=== PATIENT | female | born 1955 | race Caucasian/White ===

== ENCOUNTER 2021-10-01 12:39 | Inpatient (IN) ==
[2021-10-01] MEDS ORDERED: IOPAMIDOL 100 ML BOTTLE IV ONE (12:40)
--- NOTE | 2021-10-01 12:56 | Emergency Department Note ---
Neuro HPI General Chief Complaint: Stroke Symptoms Stated Complaint: Alt. Mental Status Time Seen by Provider: 10/01/21 12:41 Source: EMS Mode of arrival: EMS Limitations: no limitations History of Present Illness HPI Narrative: Narrative: 66-year-old female with a history of metastatic carcinoma, brain cancer, breast cancer, diabetes who receives at home care was last seen well at 5 PM yesterday by her in-home provider. When she arrived today she noticed that the patient was confused and was using inappropriate words when trying to communicate. She called EMS who brought her here for further evaluation. EMS states she had a normal blood sugar of 160 in route. Patient cannot provide any significant his tory, review of systems and is having difficulty participating in neuro exam. Related Data Previous Rx's Medication Instructions Recorded glyburide 1.25 mg tablet 1.25 mg PO TID #90 tab 04/23/20 dexamethasone 4 mg tablet 4 mg PO QDAY #30 tab 05/30/20 (Decadron) Allergies Allergy/AdvReac Type Severity Reaction Status Date / Time baclofen Allergy Unknown Other Verified 10/01/21 12:44 bupropion [From Wellbutrin] Allergy Unknown Blisters Verified 10/01/21 12:44 phenol Allergy Unknown Unknown Verified 10/01/21 12:44 propylene glycol Allergy Unknown Unknown Verified 10/01/21 12:44 exenatide microspheres AdvReac Unknown Unknown Verified 10/01/21 12:44 [From Bydureon] liraglutide [From Victoza] AdvReac Unknown Unknown Verified 10/01/21 12:44 metformin AdvReac Unknown Diarrhea Verified 10/01/21 12:44 Codeine Deriv Allergy Unknown Skin Uncoded 04/30/20 13:25 Reaction Review of Systems ROS ROS Narrative: Narrative: Limitations: ROS unobtainable due to patients medical condition [facility] Narrative Patient History Narrative: Narrative: Medical/Surgical/Family History All Active Problems (Updated 10/01/21 @ 15:49 by Michael Sen MD) Dysarthria (Acute) Stroke (Acute) Left leg weakness (Acute) Malignant neoplasm metastatic to brain (Acute) Hyperlipidemia (Chronic) Hx of right breast biopsy (Acute 09/12/14) Hx of laparoscopy (Acute) Hx of colonoscopy (Acute 09/27/14) Hx of section (Acute) Cholelithiasis (Acute) Leg pain (Acute) Metastatic carcinoma (Chronic) Weakness (Acute) History of breast cancer (Chronic) Tobacco abuse (Chronic) Diabetic neuropathy (Chronic) Bilateral leg pain (Acute) Left against medical advice (Acute) Chronic leg pain (Chronic) Abscess (Acute) Diabetes mellitus type 2 with complications, uncontrolled (Chronic) Headache (Chronic) Eczema of face (Chronic) Sacroiliac dysfunction (Chronic) Diabetes mellitus (Chronic) Osteoporosis (Chronic) Menopausal syndrome (Chronic) Colon polyp (Chronic 09/27/14) Breast cancer (Chronic 10/17/14) Type 2 diabetes mellitus (Chronic) Medical History Bilateral leg pain Colon polyp (09/27/14) HP Diabetes mellitus type 2 with complications, uncontrolled Diabetic neuropathy Eczema of face History of breast cancer HX: breast cancer 09/26/14-pant right Hyperlipidemia Hypothyroidism (acquired) Left leg weakness Leg pain Menopausal syndrome Metastatic carcinoma Osteoporosis Sacroiliac dysfunction Tobacco abuse Type 2 diabetes mellitus 10/17/14 Weakness Surgical History Breast cancer (10/17/14) 2015 - Followed by Dr. [facility], surgery, chemotherapy, radiation, refused hormone therapy Cholelithiasis Hx of section 9 pregnancies multiple cerclages to try to get to term but all failed, one born by CS because of fo cervical stenosis~SWAPNIL Hx of colonoscopy (09/27/14) HP Hx of laparoscopy Hx of right breast biopsy (09/12/14) [facility]- See path report Family History multiple Aunts Malignant neoplasm of breast multiple paternal Aunts Unknown Malignant neoplasm of colon Multiple family members not specified which ones Family history of malignant neoplasm of breast Malignant neoplasm Type 2 diabetes mellitus Father Ischemic heart disease due to coronary artery obstruction Valvular heart disease Malignant neoplasm of colon Social History Smoking Status: Former smoker Alcohol Intake Frequency: does not drink Substance Use: does not use Exam Narrative Narrative: Narrative: Gen: Patient physically looks well and is in no distress Eyes: PERRL, no conjunctival injection , and symmetrical lids. Sclerae non icteric HENMT: Normocephalic Atraumatic head, external nose and ears. Moist MM. Neck: Symmetric, trachea midline, CVS: +S1/S2, No murmurs or gallops. Radial pulses 2+ and equal bilat. No swelling RESP: Unlabored respiratory effort . Clear to auscultation bilaterally (CTAB). No noted wheezes rales or ronchi. GI: Nontender/Nondistended (NTND), No focal tenderness MSK: Extremities w/o deformity or ttp. No cyanosis or clubbing. Skin: Warm, Dry . No rashes or lesions . Cap refill less than 2. Neuro: Patient has normal facial symmetry, normal sensation throughout the face, normal smile. Patient has a hard time following instructions to puff out cheeks or demonstrate motor function of the tongue. She also had trouble raising her shoulders more out of inappropriate response than I believe any profound neuro deficit. 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 She can raise both legs off the bed without any difficulty. She has normal Babinski reflex bilaterally. Patient does have word salad and inappropriate responses. She is not participating very well with instructions and she was confused and not oriented to person place or time. Psych: Patient is confused and cannot answer to person place or time. She is using word salad but you can tell she is frustrated when she can answer appropriately. She nods her head and says she can mentate appropriately but is having a hard time speaking she is denying motor dysfunction. General Limitations: no limitations Course Vital Signs Vital signs: Vital Signs Temperature 97.6 F 10/01/21 12:40 Pulse Rate 88 10/01/21 12:40 Respiratory Rate 18 10/01/21 12:40 Blood Pressure 129/56 10/01/21 12:40 Pulse Oximetry (%) 98 10/01/21 12:40 Temperature 97.6 F 10/01/21 12:40 Pulse Rate 86 10/01/21 15:31 Respiratory Rate 15 10/01/21 15:31 Blood Pressure 116/62 10/01/21 15:31 Pulse Oximetry (%) 96 10/01/21 15:31 MDM MDM Narrative Medical decision making narrative: Narrative: Patient presents the ER last known well at 5 PM yesterday. She has aphasia and is experiencing word salad. She is frustrated from her inappropriate responses. She is having a hard time participating in the neuro exam and is not performing the movements requested. She demonstrates no focal weakness or motor dysfunction on exam. She has normal symmetry of the face and other than aphasia she appears to be neurologically intact. Patient has a +2 NIH stroke scale for aphasia and +1 for dysarthria giving her an NIH of 3 at a minimum, but it is likely much higher. Iit is hard to evaluate as she appears to have normal motor function but will not follow commands appropriately. She will be sent for emergent neuroimaging with CT of the head with CTA of the head and neck to follow. CT brain without contrast: IMPRESSION: Mild atrophy and chronic ischemic changes in the deep cerebral white matter progressing. No hemorrhage or other acute finding Multiple osteolytic lesions, presumably from metastases or multiple myeloma, are predominantly within the frontal parietal calvarium near the vertex. They have decreased in size and number since the comparison exam 1.5 years ago. CTA of the head: Normal angiogram of the brain CTA Neck: IMPRESSION: Thoracic arch, brachiocephalic, all carotid, vertebral and subclavian arteries are widely patent. Multiple mixed sclerotic/lytic lesions throughout the visualized vertebral bodies C2-T6. Findings compatible with advanced metastatic disease from breast cancer. Massively enlarged (5 x 3 cm) lymph node in the lower right perijugular region which compresses and severely narrows the right internal jugular vein. Probable adjacent thrombosis. Consider ultrasound evaluation. Interpreted and Authenticated by: Job Arevalo 10/01/21 [id number] glucose: 164 CBC: Unremarkable CMP: Unremarkable PT/INR: 13.2 /1.2 APTT: Normal EKG: Normal sinus rhythm at a rate of 92 bpm with normal axis, ST depression in the inferior leads as well as the lateral leads, when compared to previous EKGs from 2017 and 2019 there is no change. There is no evidence of acute ischemia at this time. UA: Patient has not provided Clinically this patient has had acute stroke although CT findings were not demonstrating this. I would like this patient to be admitted for further e valuation and MRI. A neurologist to be consulted prior to speaking to the hospitalist for admission to see if there is any reason why we cannot keep this patient locally. Dr. Aguirre Neurologist: He agrees that the patient will need optimization of blood pressure, statin therapy and will need an echocardiogram but does not need to go to a bigger center unless we suspect seizure-like activity which I do not at this time based on history and examination. Hospitalist will be consulted for admission at this time. Dr Sen hospitalist: Graciously agreed to come down and evaluate the patient for admission. Lab Data Result diagrams: 10/01/21 14:06 10/01/21 14:06 Labs: Lab Results 10/01/21 10/01/21 10/01/21 Range/Units 13:18 14:06 14:06 WBC 7.9 (4.5-11.0) K/mcL RBC 4.25 (3.59-5.38) M/mcL Hgb 12.8 (11.2-15.7) g/dL Hct 38.6 (34.1-44.9) % MCV 90.8 (80.0-100.0) fL MCH 30.1 (26.0-34.0) pg MCHC 33.2 (31.0-36.0) g/dL RDW 14.6 H (11.5-14.5) % Plt Count 236 (140-440) K/mcL MPV 10.3 (7.4-10.4) fL Neut % (Auto) 73.7 (38.0-78.0) % Lymph % (Auto) 19.5 (15.5-49.0) % [place] % (Auto) 6.1 (1.0-12.0) % Eos % (Auto) 0.3 (0.0-7.0) % Baso % (Auto) 0.4 (0.0-2.0) % Lymph # (Auto) 1.54 (1.50-4.80) K/mcL [place] # (Auto) 0.48 (0.10-0.90) K/mcL Eos # (Auto) 0.02 (0.00-0.70) K/mcL Baso # (Auto) 0.03 (0.00-0.30) K/mcL Absolute Neutrophils 5.81 (1.80-8.00) K/mcL POC PT 13.2 (11.9-14.5) sec POC INR 1.1 (0.8-1.2) APTT 23.2 (20.0-37.0) sec Sodium 132 L (133-145) mmol/L Potassium 4.3 (3.3-5.1) mmol/L Chloride 98 (96-108) mmol/L Carbon Dioxide 21 L (22-30) mmol/L Anion Gap 13.0 (8.0-16.0) BUN 17 (8-23) mg/dL Creatinine 0.5 L (0.6-1.1) mg/dL POC Creatinine 0.4 L (0.6-1.2) mg/dL GFR Calculation 101 Glucose 145 H (70-105) mg/dL Calcium 9.9 (8.6-10.4) mg/dL Total Bilirubin 0.5 (0.1-1.0) mg/dL AST 20 (<32) U/L ALT 9 (<40) U/L Alkaline Phosphatase 146 H (39-117) U/L Total Protein 7.0 (5.9-8.4) gm/dL Albumin 4.1 (3.2-5.2) gm/dL Globulin 2.9 (2.2-3.7) gm/dL Albumin/Globulin Ratio 1.4 (1.0-2.3) ED POC Tests ED POC Tests: ANTHONY - SARS Antigen Negative Discharge Plan Patient/Caregiver Discharge Instructions Pt seen by HARD TILE SETTER/PA only: Yes Clinical Impression: Stroke Patient Disposition: Xfer As Inpt ([facility]) Follow up with: No,PCP [Primary Care Provider] - Prescriptions: No Action glyburide 1.25 mg tablet 1.25 mg PO TID Qty: 90 0RF dexamethasone [Decadron] 4 mg tablet 4 mg PO QDAY Qty: 30 0RF
--- NOTE | 2021-10-01 13:25 | Cat Scan Report ---
CLINICAL INFORMATION: Code stroke COMPARISON: 04/16/2020 TECHNIQUE: 2.5 mm helical slices were obtained in the skull base to vertex. Following reconstruction, axial reformatted images were reviewed at bone and parenchymal windows. The exam was performed using radiation dose optimization techniques including, but not limited to, automated exposure control, adjustment of the mA and/or kV according to patient size and use of iterative reconstruction technique. FINDINGS: The ventricles, sulci, fissures, and cisterns are symmetrically enlarged compatible with mild age-related atrophy. No extra-axial fluid collections are identified. Moderate patchy chronic ischemic changes, in the deep cerebral white matter, are expected for age. On the previous CT, there was a large amount of vasogenic edema is seen in the left frontal, parietal and temporal lobes from invasive osteolytic metastasis in the adjacent frontal calvaria. This has resolved. There is no intracerebral hemorrhage, edema or mass effect other acute finding. Multiple osteolytic foci predominantly within the frontal parietal calvaria near vertex without decrease in size and number from the comparison exam 1.5 years ago. Left frontal osteotomy noted.. There is no hemorrhage, mass effect, or edema. IMPRESSION: Mild atrophy and chronic ischemic changes in the deep cerebral white matter progressing. No hemorrhage or other acute finding Multiple osteolytic lesions, presumably from metastases or multiple myeloma, are predominantly within the frontal parietal calvarium near the vertex. They have decreased in size and number since the comparison exam 1.5 years ago. Interpreted and Authenticated by: Job Arevalo 10/01/21
--- NOTE | 2021-10-01 13:41 | Cat Scan Report ---
CLINICAL INFORMATION: Acute dysarthria evaluate for CVA COMPARISON: None. TECHNIQUE: 80 cc of Isovue-370 were injected intravenously , and using SmartPrep to maximize cerebral arterial opacification, 0.625 mm helical slices were obtained from the skull base through the cerebral vertex. Following reconstruction , sagittal, coronal and axial reformatted images were processed and reviewed at multiple windows and levels. 3D volume rendered and MIP images were acquired at a independent workstation. The exam was performed using radiation dose optimization techniques including, but not limited to, automated exposure control, adjustment of the mA and/or kV according to patient size and use of iterative reconstruction technique. FINDINGS: The intracranial internal carotid, vertebral, basilar, anterior, middle and posterior cerebral arteries and their branches are well-opacified and normal in contour and caliber without significant stenosis, occlusion or other pathology. Superficial/deep cerebral veins and deep venous sinuses are widely patent IMPRESSION: Normal exam Interpreted and Authenticated by: Job Arevalo 10/01/21
--- NOTE | 2021-10-01 13:50 | Cat Scan Report ---
CLINICAL INFORMATION: Acute CVA COMPARISON: None. TECHNIQUE: 80 cc of Isovue-300 were injected intravenously followed by 40 cc of normal saline flush. Using SmartPrep, 0.625 helical slices were obtained from the thoracic aortic arch through the [place]. Following reconstruction, 2.5 mm sagittal, coronal and axial reformatted images were processed. MIPS , 3-D volume rendering and CPR images were also constructed. The exam was performed using radiation dose optimization techniques including, but not limited to, automated exposure control, adjustment of the mA and/or kV according to patient size and use of iterative reconstruction technique. FINDINGS: The thoracic aortic arch is normal diameter with minimal intimal thickening and conventional aortic branching. The brachiocephalic, both subclavian, both common, internal and external carotid and both vertebral arteries are widely patent without significant abnormality. No soft tissue abnormality. A large (5 x 2.8 cm) is lymph node as developed in the inferior right perijugular region which markedly compresses the internal jugular vein. Suspect thrombus within the adjacent internal jugular vein. There are no other areas of adenopathy. Bone windows show multiple mixed sclerotic and lytic lesions throughout all visualized vertebral bodies including T2-T6. These are new from chest CT 01/25/2017. There are suspicious for metastases from breast cancer. IMPRESSION: Thoracic arch, brachiocephalic, all carotid, vertebral and subclavian arteries are widely patent. Multiple mixed sclerotic/lytic lesions throughout the visualized vertebral bodies C2-T6. Findings compatible with advanced metastatic disease from breast cancer. Massively enlarged (5 x 3 cm) lymph node in the lower right perijugular region which compresses and severely narrows the right internal jugular vein. Probable adjacent thrombosis. Consider ultrasound evaluation. Interpreted and Authenticated by: Job Arevalo 10/01/21
[2021-10-01 14:14] LABS: POC Creatinine 0.4 mg/dL (0.6-1.2)
[2021-10-01 14:27] LABS: POC INR 1.1 (0.8-1.2); POC Pro Time 13.2 sec (11.9-14.5)
[2021-10-01 14:58] LABS: Partial Thromboplastin Time 23.2 sec (20.0-37.0)
[2021-10-01 14:59] LABS: Basophils # (Auto) 0.03 K/mcL (0.00-0.30); Basophils % (Auto) 0.4 % (0.0-2.0); Eosinophils # (Auto) 0.02 K/mcL (0.00-0.70); Eosinophils % (Auto) 0.3 % (0.0-7.0); Hematocrit 38.6 % (34.1-44.9); Hemoglobin 12.8 g/dL (11.2-15.7); Lymphocytes # (Auto) 1.54 K/mcL (1.50-4.80); Lymphocytes % (Auto) 19.5 % (15.5-49.0); Mean Cell Volume 90.8 fL (80.0-100.0); Mean Corpuscular HGB Conc 33.2 g/dL (31.0-36.0); Mean Platelet Volume 10.3 fL (7.4-10.4); Monocytes # (Auto) 0.48 K/mcL (0.10-0.90); Monocytes % (Auto) 6.1 % (1.0-12.0); Neutrophils % (Auto) 73.7 % (38.0-78.0); Platelet Count 236 K/mcL (140-440); RBC 4.25 M/mcL (3.59-5.38); Red Cell Distribution Width 14.6 % (11.5-14.5); WBC 7.9 K/mcL (4.5-11.0)
[2021-10-01 15:06] LABS: ALT/SGPT 9 U/L (<40); AST/SGOT 20 U/L (<32); Albumin 4.1 gm/dL (3.2-5.2); Albumin/Globulin Ratio 1.4 (1.0-2.3); Alkaline Phosphatase 146 U/L (39-117); Bilirubin,Total 0.5 mg/dL (0.1-1.0); Blood Urea Nitrogen 17 mg/dL (8-23); Calcium 9.9 mg/dL (8.6-10.4); Carbon Dioxide 21 mmol/L (22-30); Chloride 98 mmol/L (96-108); Globulin 2.9 gm/dL (2.2-3.7); Glomerular Filtration Rate 101; Glucose 145 mg/dL (70-105)
--- NOTE | 2021-10-01 15:51 | Internal Med History&Physical ---
HPI History of Present Illness Patient information: Note initiated : 10/01/21 at 3:44 pm Service Date, if different from initiated Date: [] Patient: Aliya Muñoz a 66 y/o F admitted on for Alt. Mental Status. Chief Complaint: [stroke like symptoms ] Chief complaint: stroke like symptoms History of present illness: Ms. Muñoz is a 66 year old F history of type 2 diabetes mellitus as well as metastatic breast cancer, presenting with 1 day history of acute onset dysarthria. She was last seen normal at 5 PM yesterday. This morning she was found by caregiver to have dysarthria with word finding difficulties, word salad, and also not entirely following verbal commands. No focal deficit noted but patient has difficulty following verbal command so assessment may not be 100s and accurate. Patient currently does not complain of any pain or discomfort. Vital signs upon ED presentations within normal meds. Labs also largely within normal limits. CT of the head without contrast did not show any acute intracranial pathologies. CTA of the head and neck showing patent arteries with no hemodynamically significant stenosis. Review of Systems ROS unobtainable: due to mental status PFSH PFSH All Active Problems (Updated 10/01/21 @ 15:49 by Michael Sen MD) Dysarthria (Acute) Stroke (Acute) Left leg weakness (Acute) Malignant neoplasm metastatic to brain (Acute) Hyperlipidemia (Chronic) Hx of right breast biopsy (Acute 09/12/14) Hx of laparoscopy (Acute) Hx of colonoscopy (Acute 09/27/14) Hx of section (Acute) Cholelithiasis (Acute) Leg pain (Acute) Metastatic carcinoma (Chronic) Weakness (Acute) History of breast cancer (Chronic) Tobacco abuse (Chronic) Diabetic neuropathy (Chronic) Bilateral leg pain (Acute) Left against medical advice (Acute) Chronic leg pain (Chronic) Abscess (Acute) Diabetes mellitus type 2 with complications, uncontrolled (Chronic) Headache (Chronic) Eczema of face (Chronic) Sacroiliac dysfunction (Chronic) Diabetes mellitus (Chronic) Osteoporosis (Chronic) Menopausal syndrome (Chronic) Colon polyp (Chronic 09/27/14) Breast cancer (Chronic 10/17/14) Type 2 diabetes mellitus (Chronic) Medical History Bilateral leg pain Colon polyp (09/27/14) HP Diabetes mellitus type 2 with complications, uncontrolled Diabetic neuropathy Eczema of face History of breast cancer HX: breast cancer 09/26/14-pant right Hyperlipidemia Hypothyroidism (acquired) Left leg weakness Leg pain Menopausal syndrome Metastatic carcinoma Osteoporosis Sacroiliac dysfunction Tobacco abuse Type 2 diabetes mellitus 10/17/14 Weakness Surgical History Breast cancer (10/17/14) 2015 - Followed by Dr. Leon[facility], surgery, chemotherapy, radiation, refused hormone therapy Cholelithiasis Hx of section 9 pregnancies multiple cerclages to try to get to term but all failed, one born by CS because of fo cervical stenosis~SWAPNIL Hx of colonoscopy (09/27/14) HP Hx of laparoscopy Hx of right breast biopsy (09/12/14) [facility]- See path report Family History multiple Aunts Malignant neoplasm of breast multiple paternal Aunts Unknown Malignant neoplasm of colon Multiple family members not specified which ones Family history of malignant neoplasm of breast Malignant neoplasm Type 2 diabetes mellitus Father Ischemic heart disease due to coronary artery obstruction Valvular heart disease Malignant neoplasm of colon Social History (Updated 04/30/20 @ 13:40 by Tanisha Mckeon [facility]) marital status: occupational status: retired alcohol intake frequency: does not drink substance use type: does not use hiram/mormon: None seatbelt use: always MEDS/ALLERGIES Home Medications and Allergies Home Medications Medication Instructions Recorded Confirmed Type glyburide 1.25 mg tablet 1.25 mg PO TID #90 tab 04/23/20 05/30/20 Rx dexamethasone 4 mg tablet 4 mg PO QDAY #30 tab 05/30/20 Rx (Decadron) Allergies Allergy/AdvReac Type Severity Reaction Status Date / Time baclofen Allergy Unknown Other Verified 10/01/21 12:44 bupropion [From Wellbutrin] Allergy Unknown Blisters Verified 10/01/21 12:44 phenol Allergy Unknown Unknown Verified 10/01/21 12:44 propylene glycol Allergy Unknown Unknown Verified 10/01/21 12:44 exenatide microspheres AdvReac Unknown Unknown Verified 10/01/21 12:44 [From Bydureon] liraglutide [From Victoza] AdvReac Unknown Unknown Verified 10/01/21 12:44 metformin AdvReac Unknown Diarrhea Verified 10/01/21 12:44 Codeine Deriv Allergy Unknown Skin Uncoded 04/30/20 13:25 Reaction EXAM Constitutional Vitals: Temp Pulse Resp BP Pulse Ox 36.4 C 86 15 116/62 96 10/01/21 12:40 10/01/21 15:31 10/01/21 15:31 10/01/21 15:31 10/01/21 15:31 General appearance: average body habitus, cooperative and no acute distress Head Head exam: Present atraumatic and normocephalic Eye Eye exam: Present EOMI and PERRL ENT ENT exam: Present mucous membranes moist, normal exam and normal external ear exam Neck Neck exam: Present normal inspection; Absent lymphadenopathy, tenderness or thyromegaly Respiratory Respiratory exam: Absent accessory muscle use, respiratory distress or wheezes Cardiovascular Cardiovascular exam: Present normal rate and rhythm and systolic murmur; Absent JVD GI/Abdominal GI/Abdominal exam: Present normal bowel sounds and soft; Absent organomegaly or tenderness Extremities Exam Extremities exam: Present full ROM, normal capillary refill and normal inspection; Absent tenderness Neurological Exam Neurological exam: Present alert and CN II-XII intact; Absent motor sensory deficit or oriented X3 Additional comments: orientation cannot be assessed due to dysarthria Word salad Not 100$ following verbal commend Word finding difficulties Psychiatric Psychiatric exam: Present normal affect and normal mood; Absent anxious or depressed Skin Skin exam: Present dry and intact DATA Data Completed and Pending Labs: Labs from last 24 hours 10/01/21 10/01/21 10/01/21 14:06 14:06 13:18 WBC 7.9 RBC 4.25 Hgb 12.8 Hct 38.6 MCV 90.8 MCH 30.1 MCHC 33.2 RDW 14.6 H Plt Count 236 MPV 10.3 Neut % (Auto) 73.7 Lymph % (Auto) 19.5 Gilmer % (Auto) 6.1 Eos % (Auto) 0.3 Baso % (Auto) 0.4 Lymph # (Auto) 1.54 Gilmer # (Auto) 0.48 Eos # (Auto) 0.02 Baso # (Auto) 0.03 Absolute Neutrophils 5.81 POC PT 13.2 POC INR 1.1 APTT 23.2 Sodium 132 L Potassium 4.3 Chloride 98 Carbon Dioxide 21 L Anion Gap 13.0 BUN 17 Creatinine 0.5 L POC Creatinine 0.4 L GFR Calculation 101 Glucose 145 H Calcium 9.9 Total Bilirubin 0.5 AST 20 ALT 9 Alkaline Phosphatase 146 H Total Protein 7.0 Albumin 4.1 Globulin 2.9 Albumin/Globulin Ratio 1.4 A/P Assessment and plan (1) Stroke: Status: Acute (2) Dysarthria: Status: Acute (3) Type 2 diabetes mellitus: Status: Chronic Comment: 10/17/14 Qualifiers: Diabetes mellitus complication status: with hyperglycemia Diabetes mellitus shelter insulin use: with shelter use Qualified Code(s): E11.65 - Type 2 diabetes mellitus with hyperglycemia; Z79.4 - prison (current) use of insulin (4) History of breast cancer: Status: Chronic Narrative A/P Narrative: Assessment and Plans: 1. Stroke like symptoms: DDx: TIA Inpatient med surg telemetry Neuro check q4hr NIH stroke scale qshift Okay to feed CC diet after nursing bedside swallowing evaluation Lipid panel HgA1c screening MRI brain w/o contrast 2D echocardiogram Aspirin Plavix Statin Physical therapy Occupational therapy 2. T2DM: HgA1c Hold oral hypoglycemics Correctional scale insulin AC HS Accu Chek AC HS Hypoglycemia protocol Okay to feed CC diet after nursing bedside swallowing evaluation 3. h/o metastatic breast cancer: f/u oncology outpatient GI ppx: not currently indicated DVT ppx: Lovenox Code status: Full Prognosis: guarded Disposition: inpatient med surg telemetry Time Spent With Patient Time: Total time spent is greater than 50% in coordination of care (as documented) at patient's floor/unit and/or counseling patient: Total time spent with greater than 50% in coordination of care (as documented) at patient's floor/unit and/or counseling patient:: Greater than 35 minutes QUALITY Stroke Symptom Onset Unknown: Yes
[2021-10-01] MEDS ORDERED: DEXTROSE 31 GM ORAL.SUSP PO PRN (17:35)
[2021-10-01] MEDS ORDERED: ONDANSETRON 4 MG/2 ML VIAL IV PRN (17:35)
[2021-10-01] MEDS ORDERED: DEXTROSE 50% 50 ML VIAL IV PRN (17:35)
[2021-10-01] MEDS ORDERED: CLOPIDOGREL 300 MG TABLET PO ONE (17:35)
[2021-10-01] MEDS ORDERED: ZOLPIDEM 5 MG TABLET PO PRN (17:35)
[2021-10-01] MEDS ORDERED: IBUPROFEN 600 MG TABLET PO PRN (17:35)
[2021-10-01] MEDS ORDERED: ACETAMINOPHEN 325 MG TABLET PO PRN (17:35)
[2021-10-01] MEDS ORDERED: IPRATROPIUM/ALBUTEROL 3 ML AMPUL.NEB NEB PRN (17:35)
[2021-10-01] MEDS: INSULIN LISPRO 1 UNIT/0.01 ML UNIT SQ SCH ×2 (18:28→22:26)
[2021-10-01 18:42] LABS: Appearance,Urine Clear (Clear); Bilirubin,Urine Negative (Negative); Calcium Oxalate Crystals,Urine FEW /hpf; Color,Urine Yellow; Culture Indicated,Urine No; Glucose,Urine (UA) Negative (Negative); Ketones,Urine 15 mg/dL mg/dL (Negative); Leukocyte Esterase,Urine Negative /uL (Negative); Mucus,Urine FEW /hpf; Nitrate,Urine Negative (Negative); PH,Urine 5.5 (5.0-9.0); Protein,Urine Negative (Negative); Urine Blood Negative ery/mcL (Negative); Urine RBC 1 /hpf (0-3); Urine Squamous Epithelial Cell 1 /hpf (0-4); Urine Transitional Epi Cells < 1 /hpf (0-2); Urine WBC < 1 /hpf (0-4); Urobilinogen,Urine Normal
[2021-10-01] MEDS: DOCUSATE SODIUM 100 MG CAPSULE PO SCH (19:14)
[2021-10-01] MEDS: SENNOSIDES 1 TABLET PO SCH (19:14)
[2021-10-01] MEDS: 0.9 % SODIUM CHLORIDE 10 ML SYRINGE IV SCH (22:27)
[2021-10-02] MEDS: 0.9 % SODIUM CHLORIDE 10 ML SYRINGE IV SCH ×3 (04:23→20:32)
[2021-10-02 07:06] LABS: Basophils # (Auto) 0.03 K/mcL (0.00-0.30); Basophils % (Auto) 0.4 % (0.0-2.0); Eosinophils # (Auto) 0.03 K/mcL (0.00-0.70); Eosinophils % (Auto) 0.4 % (0.0-7.0); Hematocrit 33.9 % (34.1-44.9); Hemoglobin 11.4 g/dL (11.2-15.7); Lymphocytes # (Auto) 2.26 K/mcL (1.50-4.80); Lymphocytes % (Auto) 30.7 % (15.5-49.0); Mean Cell Volume 88.1 fL (80.0-100.0); Mean Corpuscular HGB Conc 33.6 g/dL (31.0-36.0); Mean Platelet Volume 10.5 fL (7.4-10.4); Monocytes # (Auto) 0.61 K/mcL (0.10-0.90); Monocytes % (Auto) 8.3 % (1.0-12.0); Neutrophils % (Auto) 60.2 % (38.0-78.0); Platelet Count 225 K/mcL (140-440); RBC 3.85 M/mcL (3.59-5.38); Red Cell Distribution Width 14.6 % (11.5-14.5); WBC 7.4 K/mcL (4.5-11.0)
[2021-10-02 07:50] LABS: Blood Urea Nitrogen 18 mg/dL (8-23); Calcium 9.8 mg/dL (8.6-10.4); Carbon Dioxide 22 mmol/L (22-30); Chloride 99 mmol/L (96-108); Glomerular Filtration Rate 101; Glucose 132 mg/dL (70-105); HDL Cholesterol 37 mg/dL (>40); LDL Cholesterol,Calculated 148 mg/dL (<100); Non-HDL Cholesterol 175 mg/dL (<130); Phosphorous 3.5 mg/dL (2.5-4.5); Triglycerides 137 mg/dL (<150)
[2021-10-02] MEDS: INSULIN LISPRO 1 UNIT/0.01 ML UNIT SQ SCH ×4 (07:59→20:31)
[2021-10-02] MEDS ORDERED: DEXAMETHASONE 4 MG TABLET PO SCH (09:00)
[2021-10-02] MEDS: CLOPIDOGREL 75 MG TABLET PO SCH (11:46)
[2021-10-02] MEDS: ATORVASTATIN 40 MG TABLET PO SCH (11:46)
[2021-10-02] MEDS: ASPIRIN 81 MG TAB.CHEW CHEWED SCH (11:46)
[2021-10-02] MEDS: DOCUSATE SODIUM 100 MG CAPSULE PO SCH ×2 (11:47→20:31)
[2021-10-02] MEDS: ENOXAPARIN 40 MG/0.4 ML SYRINGE SQ SCH (11:47)
--- NOTE | 2021-10-02 11:50 | Internal Med Progress Note ---
SUBJECTIVE Subjective Patient information: Note initiated : 10/02/21 at 11:43 am Service Date, if different from initiated Date: [] Patient: Aliya Muñoz a 66 y/o F admitted on 10/01/21 for Alt. Mental Status. Chief Complaint: [] Interval history: Ms. Muñoz is a 66 year old F history of type 2 diabetes mellitus as well as metastatic breast cancer, presenting with 1 day history of acute onset dysarthria. She was last seen normal at 5 PM yesterday. This morning she was found by caregiver to have dysarthria with word finding difficulties, word salad, and also not entirely following verbal commands. No focal deficit noted but patient has difficulty following verbal command so assessment may not be 100s and accurate. Patient currently does not complain of any pain or discomfort. Vital signs upon ED presentations within normal meds. Labs also largely within normal limits. CT of the head without contrast did not show any acute intracranial pathologies. CTA of the head and neck showing patent arteries with no hemodynamically significant stenosis. 10/02: Patient agreed 2D echocardiogram and repeat CT head w/o, tests performed , re sults pending. Vital signs stable. Refused breakfast. Patient finally agree on therapies and taking her medications. PT/OT/SLT evaluations. Continue dual antiplatelets and statin therapy as well as permissive HTN for 48 hours as part of the treatment for 2nd prevention for acute ischemic stroke. Constitutional Vitals: Vital Signs Temp Pulse Resp BP Pulse Ox 36.2 C 72 14 96/57 94 10/02/21 04:01 10/02/21 04:01 10/02/21 04:01 10/02/21 04:01 10/02/21 04:01 Period Temp Pulse Resp BP Sys/Cuevas Pulse Ox Last 24 Hr 36.2 C-37.0 C 72-100 - 96-129/51-70 92-99 Intake and Output 10/01/21 10/02/21 10/02/21 21:59 05:59 13:59 Intake Total 240 Output Total 2 Balance 238 Weight 57.606 kg Intake & Output: Intake & Output 10/01/21 10/02/21 10/02/21 21:59 05:59 13:59 Intake Total 240 Output Total 2 Balance 238 Weight 57.606 kg Intake: Oral 240 Output: # of times incontinent of urine 2 Head Head exam: Present atraumatic and normal inspection Eye Eye exam: Present normal appearance ENT ENT exam: Present mucous membranes moist, normal exam and normal external ear exam Neck Neck exam: Present normal inspection Respiratory Respiratory exam: Present normal respiratory exam Cardiovascular Cardiovascular exam: Present normal rate and rhythm GI/Abdominal GI/Abdominal exam: Present normal bowel sounds Back Exam Back exam: Present normal inspection Neurological Exam Neurological exam: Present alert; Absent oriented X3 Additional comments: orientation cannot be assessed due to the fact that she refused to answered most of the questions Psychiatric Psychiatric exam: Present depressed; Absent normal affect or normal mood Skin Skin exam: Present intact and warm OBJ DATA Labs CBC & Chem 7: 10/02/21 06:03 10/02/21 06:02 Labs: Abnormal Lab Results 10/02/21 10/02/21 10/01/21 06:03 06:02 16:59 Hct 33.9 L RDW 14.6 H MPV 10.5 H Sodium Carbon Dioxide Creatinine 0.5 L POC Creatinine Glucose 132 H Alkaline Phosphatase Cholesterol 212 H LDL Cholesterol, Calc 148 H Non-HDL Cholesterol 175 H HDL Cholesterol 37 L Urine Ketones 15 mg/dl A Calcium Oxalate Crystal Few A Urine Mucus Few A 10/01/21 10/01/21 14:06 14:06 Hct RDW 14.6 H MPV Sodium 132 L Carbon Dioxide 21 L Creatinine 0.5 L POC Creatinine 0.4 L Glucose 145 H Alkaline Phosphatase 146 H Cholesterol LDL Cholesterol, Calc Non-HDL Cholesterol HDL Cholesterol Urine Ketones Calcium Oxalate Crystal Urine Mucus Meds: Medications Acetaminophen (Acetaminophen 325 Mg Tablet) 650 mg PO Q6HP PRN; Protocol PRN Reason: Per Pain Protocol/Fever > 101 Albuterol/Ipratropium (Ipratropium/Albuterol 3 Ml Ampul.Neb) 3 ml NEB Q4HRT PRN PRN Reason: Wheezing Aspirin (Aspirin 81 Mg Tab.Chew) 81 mg CHEWED DAILY [facility] Atorvastatin Calcium (Atorvastatin 40 Mg Tablet) 80 mg PO DAILY [facility] Clopidogrel Bisulfate (Clopidogrel 75 Mg Tablet) 75 mg PO DAILY [facility] Dextrose (Dextrose 50% 50 Ml Vial) 0 ml IV UD PRN PRN Reason: Hypoglycemia Diagnostic Test (Pha) (Accu-Chek 1 Each Strip) 1 each FS ACHS [facility] Last Admin: 10/02/21 07:58 Dose: 1 each Documented by: Docusate Sodium (Docusate Sodium 100 Mg Capsule) 100 mg PO BID [facility] Last Admin: 10/01/21 19:14 Dose: Not Given Documented by: Enoxaparin Sodium (Enoxaparin 40 Mg/0.4 Ml Syringe) 40 mg SQ DAILY [facility] Glucose (Dextrose 31 Gm Oral.Susp) 15 gm PO PRN PRN PRN Reason: Hypoglycemia Ibuprofen (Ibuprofen 600 Mg Tablet) 600 mg PO QIDP PRN; Protocol PRN Reason: Per Pain Protocol/Fever > 101 Insulin Human Lispro (Insulin Lispro 1 Unit/0.01 Ml Unit) 0 unit SQ ACHS [facility]; Protocol Last Admin: 10/02/21 07:59 Dose: Not Given Documented by: Ondansetron HCl (Ondansetron 4 Mg/2 Ml Vial) 4 mg IV Q6HP PRN PRN Reason: Nausea And Vomiting Senna (Sennosides 1 Tablet) 2 tab PO HS [facility] Last Admin: 10/01/21 19:14 Dose: Not Given Documented by: Sodium Chloride (0.9 % Sodium Chloride 10 Ml Syringe) 10 ml IV Q8 [facility] Last Admin: 10/02/21 04:23 Dose: Not Given Documented by: Zolpidem Tartrate (Zolpidem 5 Mg Tablet) 5 mg PO HSP PRN PRN Reason: Insomnia A/P Assessment and plan (1) Stroke: Status: Acute (2) Dysarthria: Status: Acute (3) Type 2 diabetes mellitus: Status: Chronic Comment: 10/17/14 Qualifiers: Diabetes mellitus complication status: with hyperglycemia 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 Stroke like symptoms: DDx: TIA Inpatient med surg telemetry Neuro check q4hr NIH stroke scale qshift Okay to feed CC diet after nursing bedside swallowing evaluation Lipid panel HgA1c screening Repeat CT head w/o contrast, results pending 2D echocardiogram, results pending Aspirin Plavix Statin Permissive hypertension for 48 hours Physical therapy Occupational therapy 2. T2DM: HgA1c 6.0 Hold oral hypoglycemics Correctional scale insulin AC HS Accu Chek AC HS Hypoglycemia protocol Okay to feed CC diet after nursing bedside swallowing evaluation 3. h/o metastatic breast cancer: f/u oncology outpatient GI ppx: not currently indicated DVT ppx: Lovenox Code status: DNI DNR Prognosis: guarded Disposition: inpatient med surg telemetry Time Spent With Patient Time: Total time spent is greater than 50% in coordination of care (as documented) at patient's floor/unit and/or counseling patient: Total time spent with greater than 50% in coordination of care (as documented) at patient's floor/unit and/or counseling patient:: Greater than 35 minutes QUALITY Stroke Symptom Onset Unknown: Yes VTE Deep Vein Thrombosis/Pulmonary Embolism Present on Admission: No
--- NOTE | 2021-10-02 11:50 | Cat Scan Report ---
CLINICAL INFORMATION: History of metastatic breast carcinoma. Increased confusion COMPARISON: None. TECHNIQUE: 2.5 mm helical slices were obtained in the skull base to vertex. Following reconstruction, axial reformatted images were reviewed at bone and parenchymal windows. The exam was performed using radiation dose optimization techniques including, but not limited to, automated exposure control, adjustment of the mA and/or kV according to patient size and use of iterative reconstruction technique. FINDINGS: The ventricles, sulci, fissures, and cisterns are symmetrically enlarged compatible with mild age-related atrophy. No extra-axial fluid collections are identified. Moderate patchy chronic ischemic changes, in the deep cerebral white matter, are expected for age. There is no intracerebral hemorrhage, edema or mass effect other acute finding. Multiple osteolytic foci predominantly within the frontal parietal calvaria near vertex without decrease in size and number from the comparison exam 1.5 years ago. Left frontal osteotomy noted.. There is no hemorrhage, mass effect, or edema. IMPRESSION: Mild atrophy and chronic ischemic changes in the deep cerebral white matter progressing. No hemorrhage or other acute finding Multiple osteolytic lesions, presumably from metastases or multiple myeloma, are predominantly within the frontal parietal calvarium near the vertex. They have decreased in size and number since the comparison exam 1.5 years ago. Interpreted and Authenticated by: Job Arevalo 10/02/21
[2021-10-02] MEDS: SENNOSIDES 1 TABLET PO SCH (20:32)
[2021-10-03] MEDS: 0.9 % SODIUM CHLORIDE 10 ML SYRINGE IV SCH ×3 (06:50→20:09)
[2021-10-03 07:10] LABS: Blood Urea Nitrogen 18 mg/dL (8-23); Calcium 10.2 mg/dL (8.6-10.4); Carbon Dioxide 23 mmol/L (22-30); Chloride 96 mmol/L (96-108); Glomerular Filtration Rate 95; Glucose 99 mg/dL (70-105); Phosphorous 4.3 mg/dL (2.5-4.5)
[2021-10-03 07:22] LABS: Basophils # (Auto) 0.04 K/mcL (0.00-0.30); Basophils % (Auto) 0.9 % (0.0-2.0); Eosinophils # (Auto) 0.07 K/mcL (0.00-0.70); Eosinophils % (Auto) 1.5 % (0.0-7.0); Hematocrit 42.8 % (34.1-44.9); Hemoglobin 15.2 g/dL (11.2-15.7); Lymphocytes # (Auto) 2.02 K/mcL (1.50-4.80); Lymphocytes % (Auto) 43.5 % (15.5-49.0); Mean Cell Volume 85.8 fL (80.0-100.0); Mean Corpuscular HGB Conc 35.5 g/dL (31.0-36.0); Mean Platelet Volume 10.3 fL (7.4-10.4); Monocytes # (Auto) 0.43 K/mcL (0.10-0.90); Monocytes % (Auto) 9.3 % (1.0-12.0); Neutrophils % (Auto) 44.8 % (38.0-78.0); Platelet Count 149 K/mcL (140-440); RBC 4.99 M/mcL (3.59-5.38); Red Cell Distribution Width 14.6 % (11.5-14.5); WBC 4.6 K/mcL (4.5-11.0)
[2021-10-03] MEDS: INSULIN LISPRO 1 UNIT/0.01 ML UNIT SQ SCH ×4 (07:22→20:09)
--- NOTE | 2021-10-03 07:37 | EKG ---
[facility] Test Date: 2021-10-01 Pat Name: Aliya Muñoz Department: ED Room: Gender: Female Nurse Reviewer: SB : 1955 Requested By: Hernan Allen Order Number: [id number] Reading MD: Harshal Smalls Measurements Intervals [place] Rate: 92 P: 68 VT: 137 QRS: -7 QRSD: 128 T: 29 QT: 395 QTc: 489 Interpretive Statements Sinus rhythm Probable left atrial enlargement IVCD, consider atypical RBBB Electronically Signed On 10-03-2021 7:36:07 PST by Harshal Smalls /store/M0/[id number]
[2021-10-03] MEDS ORDERED: FLU VACC QS2021-22(6MOS UP)/PF 60 MCG/0.5 ML SYRINGE IM ONE (10:00)
[2021-10-03] MEDS ORDERED: PNEUMOCOCCAL 23-VAL P-SAC VAC 0.5 ML SYRINGE IM ONE (10:00)
[2021-10-03] MEDS: DOCUSATE SODIUM 100 MG CAPSULE PO SCH ×2 (11:32→20:08)
[2021-10-03] MEDS: ASPIRIN 81 MG TAB.CHEW CHEWED SCH (11:32)
[2021-10-03] MEDS: CLOPIDOGREL 75 MG TABLET PO SCH (11:32)
[2021-10-03] MEDS: ATORVASTATIN 40 MG TABLET PO SCH (11:32)
[2021-10-03] MEDS: ENOXAPARIN 40 MG/0.4 ML SYRINGE SQ SCH (11:33)
--- NOTE | 2021-10-03 11:54 | Internal Med Progress Note ---
SUBJECTIVE Subjective Patient information: Note initiated : 10/03/21 at 11:49 am Service Date, if different from initiated Date: [] Patient: Aliya Muñoz a 66 y/o F admitted on 10/01/21 for Alt. Mental Status. Chief Complaint: [] Interval history: Ms. Muñoz is a 66 year old F history of type 2 diabetes mellitus as well as metastatic breast cancer, presenting with 1 day history of acute onset dysarthria. She was last seen normal at 5 PM yesterday. This morning she was found by caregiver to have dysarthria with word finding difficulties, word salad, and also not entirely following verbal commands. No focal deficit noted but patient has difficulty following verbal command so assessment may not be 100s and accurate. Patient currently does not complain of any pain or discomfort. Vital signs upon ED presentations within normal meds. Labs also largely within normal limits. CT of the head without contrast did not show any acute intracranial pathologies. CTA of the head and neck showing patent arteries with no hemodynamically significant stenosis. 10/02: Patient agreed 2D echocardiogram and repeat CT head w/o, tests performed , re sults pending. Vital signs stable. Refused breakfast. Patient finally agree on therapies and taking her medications. PT/OT/SLT evaluations. Continue dual antiplatelets and statin therapy as well as permissive HTN for 48 hours as part of the treatment for 2nd prevention for acute ischemic stroke. 10/03: Refused food and medications. Suspect clinical depression, will arrange for tele psychiatry evaluation. Out of permissive HTN window, will now focus on aggressive blood pressure control. Continue dual antiplatelets and statin therapy. PT recs. SNF/rehab placement. Constitutional Vitals: Vital Signs Temp Pulse Resp BP Pulse Ox 36.3 C 61 14 99/53 96 10/03/21 11:21 10/03/21 11:21 10/03/21 11:21 10/03/21 11:21 10/03/21 11:21 Period Temp Pulse Resp BP Sys/Cuevas Pulse Ox Last 24 Hr 36.2 C-37.0 C 18-90 14-18 86-108/49-63 93-98 Intake and Output 10/02/21 10/03/21 10/03/21 21:59 05:59 13:59 Intake Total 620 25 Output Total 3 1 Balance 617 24 Weight 57.425 kg Intake & Output: Intake & Output 10/02/21 10/03/21 10/03/21 21:59 05:59 13:59 Intake Total 620 25 Output Total 3 1 Balance 617 24 Weight 57.425 kg Intake: Oral 620 25 Output: # of times incontinent of urine 3 1 Other: Meal Dinner Percent of Meal Consumed 75% Urine Color Bright Yellow Dark Yellow Urine Odor Strong Strong # Voids 1 General appearance: average body habitus and no acute distress; no cooperative Head Head exam: Present atraumatic and normal inspection Eye Eye exam: Present normal appearance ENT ENT exam: Present mucous membranes moist, normal exam and normal external ear exam Neck Neck exam: Present normal inspection Respiratory Respiratory exam: Present normal respiratory exam Cardiovascular Cardiovascular exam: Present normal rate and rhythm GI/Abdominal GI/Abdominal exam: Present normal bowel sounds Back Exam Back exam: Present normal inspection Neurological Exam Neurological exam: Present alert and oriented X3 Psychiatric Psychiatric exam: Present depressed; Absent normal affect Skin Skin exam: Present intact and warm OBJ DATA Labs CBC & Chem 7: 10/03/21 05:45 10/03/21 05:44 Labs: Abnormal Lab Results 10/03/21 10/02/21 10/02/21 05:45 06:03 06:02 Hct 33.9 L RDW 14.6 H 14.6 H MPV 10.5 H Sodium Carbon Dioxide Creatinine 0.5 L POC Creatinine Glucose 132 H Alkaline Phosphatase Cholesterol 212 H LDL Cholesterol, Calc 148 H Non-HDL Cholesterol 175 H HDL Cholesterol 37 L Urine Ketones Calcium Oxalate Crystal Urine Mucus 10/01/21 10/01/21 10/01/21 16:59 14:06 14:06 Hct RDW 14.6 H MPV Sodium 132 L Carbon Dioxide 21 L Creatinine 0.5 L POC Creatinine 0.4 L Glucose 145 H Alkaline Phosphatase 146 H Cholesterol LDL Cholesterol, Calc Non-HDL Cholesterol HDL Cholesterol Urine Ketones 15 mg/dl A Calcium Oxalate Crystal Few A Urine Mucus Few A Meds: Medications Acetaminophen (Acetaminophen 325 Mg Tablet) 650 mg PO Q6HP PRN; Protocol PRN Reason: Per Pain Protocol/Fever > 101 Albuterol/Ipratropium (Ipratropium/Albuterol 3 Ml Ampul.Neb) 3 ml NEB Q4HRT PRN PRN Reason: Wheezing Aspirin (Aspirin 81 Mg Tab.Chew) 81 mg CHEWED DAILY [facility] Last Admin: 10/03/21 11:32 Dose: 81 mg Documented by: Atorvastatin Calcium (Atorvastatin 40 Mg Tablet) 80 mg PO DAILY [facility] Last Admin: 10/03/21 11:32 Dose: 80 mg Documented by: Clopidogrel Bisulfate (Clopidogrel 75 Mg Tablet) 75 mg PO DAILY [facility] Last Admin: 10/03/21 11:32 Dose: 75 mg Documented by: Dextrose (Dextrose 50% 50 Ml Vial) 0 ml IV UD PRN PRN Reason: Hypoglycemia Diagnostic Test (Pha) (Accu-Chek 1 Each Strip) 1 each FS [facility] Last Admin: 10/03/21 11:33 Dose: 1 each Documented by: Docusate Sodium (Docusate Sodium 100 Mg Capsule) 100 mg PO BID [facility] Last Admin: 10/03/21 11:32 Dose: 100 mg Documented by: Enoxaparin Sodium (Enoxaparin 40 Mg/0.4 Ml Syringe) 40 mg SQ DAILY [facility] Last Admin: 10/03/21 11:33 Dose: 40 mg Documented by: Glucose (Dextrose 31 Gm Oral.Susp) 15 gm PO PRN PRN PRN Reason: Hypoglycemia Ibuprofen (Ibuprofen 600 Mg Tablet) 600 mg PO QIDP PRN; Protocol PRN Reason: Per Pain Protocol/Fever > 101 Last Admin: 10/02/21 18:19 Dose: 600 mg Documented by: Insulin Human Lispro (Insulin Lispro 1 Unit/0.01 Ml Unit) 0 unit SQ [facility]; Protocol Last Admin: 10/03/21 11:33 Dose: Not Given Documented by: Ondansetron HCl (Ondansetron 4 Mg/2 Ml Vial) 4 mg IV Q6HP PRN PRN Reason: Nausea And Vomiting Senna (Sennosides 1 Tablet) 2 tab PO HS [facility] Last Admin: 10/02/21 20:32 Dose: Not Given Documented by: Sodium Chloride (0.9 % Sodium Chloride 10 Ml Syringe) 10 ml IV Q8 [facility] Last Admin: 10/03/21 06:50 Dose: Not Given Documented by: Zolpidem Tartrate (Zolpidem 5 Mg Tablet) 5 mg PO HSP PRN PRN Reason: Insomnia A/P Assessment and plan (1) Stroke: Status: Acute (2) Dysarthria: Status: Acute (3) Type 2 diabetes mellitus: Status: Chronic Comment: 10/17/14 Qualifiers: Diabetes mellitus complication status: with hyperglycemia Diabetes mellitus shelter insulin use: with technician terminal and repeater use Qualified Code(s): E11.65 - Type 2 diabetes mellitus with hyperglycemia; Z79.4 - retirement (current) use of insulin (4) History of breast cancer: Status: Chronic (5) Clinical depression: Status: Acute Narrative A/P Narrative: Assessment and Plans: 1. Stroke like symptoms: DDx: TIA Inpatient med surg telemetry Neuro check q4hr NIH stroke scale qshift CC diet Lipid panel HgA1c 6.[address] head w/o contrast, results pending 2D echocardiogram, no cardioembolic source noted Aspirin Plavix Statin Out of permissive HTN window, will now focus on aggressive blood pressure control Physical therapy Occupational therapy 2. T2DM: HgA1c 6.0 Hold oral hypoglycemics Correctional scale insulin AC HS Accu Chek AC HS Hypoglycemia protocol Okay to feed CC diet after nursing bedside swallowing evaluation 3. h/o metastatic breast cancer: f/u oncology outpatient 4. Clinical depression: Tele psychiatry evaluation GI ppx: not currently indicated DVT ppx: Lovenox Code status: DNI DNR Prognosis: guarded Disposition: inpatient med surg telemetry Time Spent With Patient Time: Total time spent is greater than 50% in coordination of care (as documented) at patient's floor/unit and/or counseling patient: Total time spent with greater than 50% in coordination of care (as documented) at patient's floor/unit and/or counseling patient:: Greater than 35 minutes QUALITY Stroke Symptom Onset Unknown: Yes VTE Deep Vein Thrombosis/Pulmonary Embolism Present on Admission: No
--- NOTE | 2021-10-03 14:44 | Behavioral Health Consult ---
HPI History of Present Illness Patient information: Note initiated : 10/03/21 at 2:43 pm Service Date, if different from initiated Date: [] Patient: Aliya Muñoz a 66 y/o F admitted on 10/01/21 for Alt. Mental Status. Chief Complaint: [] History of present illness: ARRAY Name: Aliya JoséOB: 1955 DateandTime: 10/03/2021 5:33:41 PM [facility] IPLocation of the doctor: Scooter Length of consult: 20 mins This evaluation was conducted via video telepsychiatry with the assistance of onsite staff Reason for consult: psychiatric evaluation and med management Requested by: dr sen History of Present Illness: Ms. Muñoz is a 66 year old F history of type 2 diabetes mellitus as well as metastatic breast cancer, presenting with 1 day history of acute onset dysarthria. She was last seen normal at 5 PM yesterday. This morning she was found by caregiver to have dysarthria with word finding difficulties, word salad, and also not entirely following verbal commands. patient was admitted for basically status post stroke evaluation to the medical floors. patient appeared to be pleasantly confused during the interview. patient was alert oriented x3. patient denied any active suicidal ideation homicidal ideation without psychotic symptoms patient was living independently by herself before she came to the hospital for this admission Adopted son valerie and adopted sister were present during the entire interview Review of Systems ROS unobtainable: due to mental status PFSH PFSH All Active Problems (Updated 10/01/21 @ 15:49 by Michael Sen MD) Dysarthria (Acute) Stroke (Acute) Left leg weakness (Acute) Malignant neoplasm metastatic to brain (Acute) Hyperlipidemia (Chronic) Hx of right breast biopsy (Acute 09/12/14) Hx of laparoscopy (Acute) Hx of colonoscopy (Acute 09/27/14) Hx of section (Acute) Cholelithiasis (Acute) Leg pain (Acute) Metastatic carcinoma (Chronic) Weakness (Acute) History of breast cancer (Chronic) Tobacco abuse (Chronic) Diabetic neuropathy (Chronic) Bilateral leg pain (Acute) Left against medical advice (Acute) Chronic leg pain (Chronic) Abscess (Acute) Diabetes mellitus type 2 with complications, uncontrolled (Chronic) Headache (Chronic) Eczema of face (Chronic) Sacroiliac dysfunction (Chronic) Diabetes mellitus (Chronic) Osteoporosis (Chronic) Menopausal syndrome (Chronic) Colon polyp (Chronic 09/27/14) Breast cancer (Chronic 10/17/14) Type 2 diabetes mellitus (Chronic) Collateral Contacted: YesCollateral name:adopted son and adopted sister Collateral phone number:present in person during the interviewCollateral relationship to the patient:son and sister Sleep issues?: No Psychiatric History/Treatment History: Past diagnoses: neuro cognitive disorder moderate Hospitalizations: No Current Treatment:No Suicide Assessment: PSS-3: 1) Over the past 2 weeks have you felt down, depressed or hopeless?No 2) Over the past 2 weeks have you had thoughts of killing yourself?No 3) Have you ever in your life attempted to kill yourself?No If yes, within the past 6 months [facility] Safety Assessment: Risk Factors Stressors: status post stroke with multiple medical problems Attempts/Self-injury: No Impulsivity:No Drug/Alcohol History:No Trauma History:No Access to firearms:No HI/Violence/Property destruction:No Legal: No Family Psych History:No Family History of suicide:No Protective Factors: Can handle stress well?Yes Anabaptist?Yes External: Social supports/ Therapeutic relationships: YesDescription: Relationship history: supportive is adopted son and adopted sister Living situation: live by herself before she came to the hospital Employment: No Education: Responsibility to family/children/work: No Future orientation:YesDescription:hopeful Health History: Medical History: status post rope and multiple medical problems as listed above in the medical records including metastatic brain tumor Medications & Freq: as per records Allergies: as per records Mental Status Exam: Appearance and Attire:Normal Psychomotor agitation:Psychomotor retardation Attitude and behavior:Cooperative Speech:Slurred Mood:Depressed Affect:Restricted Thought process:Linear Thought content:No abnormality Perception:no perceptual disturbances Intel:Above average Abstract:Appropriate Language:Impaired to Naming Orientation:Oriented x 4, Grossly oriented Sense:Normal Knowledge:Mild impairment, Moderate impairment Memory:Impaired to Immediate recall, Impaired to Recent recall (3 min), Impaired to Remote recall, Impaired to Executive function Insight:Lack of awareness of problems Judgement:Moderate impairment Gait:unable to assess Impression/Risk Assessment: Current Suicide Risk Elevated?No Current Violence Risk Elevated?No Issues with ability to care for self?No Summary: patient is status post stroke patient has metastatic brain tumor with multiple other medical problems patient has poststroke depression and mood disorder patient denies any active suicidal ideation homicidal ideation without psychotic symptoms patient will benefit from a neuro rehab or a long-term facility for physical therapy rehab once medically cleared from this hospitalization Diagnosis: F01.50 Vascular dementia without behavioral disturbance CPT Codes: 26335 Expanded problem focused history, exam, low complexity medical decision making (15 min) Treatment Plan: Level of Care: inpatient medical management Psychiatric Clearance: Yes Observation level 1:1 needed?: Yes Pharmacological: will start the patient on Depakote DR 250 mg at bedtime and Zoloft 50 mg in the morning Patient psychotic?No Therapy: supportive Follow up needed while in the hospital?: YesNumber of times:every 3-4 days until discharged to the next level of care or long-term facility or stroke rehab Discussed plan with onsite merchandise flow team leader: Yes Who ms núñez Other: PFSH PFSH All Active Problems (Updated 10/03/21 @ 11:52 by Michael Sen MD) Clinical depression (Acute) Dysarthria (Acute) Stroke (Acute) Left leg weakness (Acute) Malignant neoplasm metastatic to brain (Acute) Hyperlipidemia (Chronic) Hx of right breast biopsy (Acute 09/12/14) Hx of laparoscopy (Acute) Hx of colonoscopy (Acute 09/27/14) Hx of section (Acute) Cholelithiasis (Acute) Leg pain (Acute) Metastatic carcinoma (Chronic) Weakness (Acute) History of breast cancer (Chronic) Tobacco abuse (Chronic) Diabetic neuropathy (Chronic) Bilateral leg pain (Acute) Left against medical advice (Acute) Chronic leg pain (Chronic) Abscess (Acute) Diabetes mellitus type 2 with complications, uncontrolled (Chronic) Headache (Chronic) Eczema of face (Chronic) Sacroiliac dysfunction (Chronic) Diabetes mellitus (Chronic) Osteoporosis (Chronic) Menopausal syndrome (Chronic) Colon polyp (Chronic 09/27/14) Breast cancer (Chronic 10/17/14) Type 2 diabetes mellitus (Chronic) Medical History Bilateral leg pain Colon polyp (09/27/14) HP Diabetes mellitus type 2 with complications, uncontrolled Diabetic neuropathy Eczema of face History of breast cancer HX: breast cancer 09/26/14-pant right Hyperlipidemia Hypothyroidism (acquired) Left leg weakness Leg pain Menopausal syndrome Metastatic carcinoma Osteoporosis Sacroiliac dysfunction Tobacco abuse Type 2 diabetes mellitus 10/17/14 Weakness Surgical History Breast cancer (10/17/14) 2015 - Followed by [facility], surgery, chemotherapy, radiation, refused hormone therapy Cholelithiasis Hx of section 9 pregnancies multiple cerclages to try to get to term but all failed, one born by CS because of fo cervical stenosis~SWAPNIL Hx of colonoscopy (09/27/14) [place] Hx of laparoscopy Hx of right breast biopsy (09/12/14) [facility]- See path report Family History multiple Aunts Malignant neoplasm of breast multiple paternal Aunts Unknown Malignant neoplasm of colon Multiple family members not specified which ones Family history of malignant neoplasm of breast Malignant neoplasm Type 2 diabetes mellitus Father Ischemic heart disease due to coronary artery obstruction Valvular heart disease Malignant neoplasm of colon Social History (Updated 04/30/20 @ 13:40 by Tanisha Mckeon [facility]) marital status: occupational status: retired alcohol intake frequency: does not drink substance use type: does not use hiram/tenriism: None seatbelt use: always MEDS/ALLERGIES Home Medications and Allergies Home Medications Medication Instructions Recorded Confirmed Type glyburide 1.25 mg tablet 1.25 mg PO TID #90 tab 04/23/20 05/30/20 Rx dexamethasone 4 mg tablet 4 mg PO QDAY #30 tab 05/30/20 Rx (Decadron) Allergies Allergy/AdvReac Type Severity Reaction Status Date / Time phenol Allergy Unknown Unknown Verified 10/01/21 12:44 propylene glycol Allergy Unknown Unknown Verified 10/01/21 12:44 baclofen AdvReac Mild Abdominal Verified 10/01/21 16:53 Pain bupropion [From Wellbutrin] AdvReac Mild Blisters Verified 10/01/21 16:53 exenatide microspheres AdvReac Mild Other Verified 10/01/21 16:53 [From Bydureon] liraglutide [From Victoza] AdvReac Mild Muscle Pain Verified 10/01/21 16:53 metformin AdvReac Mild Diarrhea Verified 10/01/21 16:53 Codeine Deriv Allergy Unknown Skin Uncoded 04/30/20 13:25 Reaction Physical Examination Vital Signs Vital signs: Temp Pulse Resp BP Pulse Ox 97.4 F 61 14 99/53 96 10/03/21 11:21 10/03/21 11:21 10/03/21 11:21 10/03/21 11:21 10/03/21 11:21 Results Laboratory Findings CBC and BMP: 10/03/21 05:45 10/03/21 05:44 Abnormal lab findings: Abnormal Labs 10/01/21 10/01/21 10/01/21 14:06 14:06 16:59 Hct RDW 14.6 H MPV Sodium 132 L Carbon Dioxide 21 L Creatinine 0.5 L POC Creatinine 0.4 L Glucose 145 H Alkaline Phosphatase 146 H Cholesterol LDL Cholesterol, Calc Non-HDL Cholesterol HDL Cholesterol Urine Ketones 15 mg/dl A Calcium Oxalate Crystal Few A Urine Mucus Few A 10/02/21 10/02/21 10/03/21 06:02 06:03 05:45 Hct 33.9 L RDW 14.6 H 14.6 H MPV 10.5 H Sodium Carbon Dioxide Creatinine 0.5 L POC Creatinine Glucose 132 H Alkaline Phosphatase Cholesterol 212 H LDL Cholesterol, Calc 148 H Non-HDL Cholesterol 175 H HDL Cholesterol 37 L Urine Ketones Calcium Oxalate Crystal Urine Mucus A/P Time Spent With Patient Time: Total time spent is greater than 50% in coordination of care (as documented) at patient's floor/unit and/or counseling patient:
[2021-10-03] MEDS: SENNOSIDES 1 TABLET PO SCH (20:09)
[2021-10-04] MEDS: 0.9 % SODIUM CHLORIDE 10 ML SYRINGE IV SCH ×3 (05:19→20:06)
[2021-10-04] MEDS: CLOPIDOGREL 75 MG TABLET PO SCH (08:46)
[2021-10-04] MEDS: ATORVASTATIN 40 MG TABLET PO SCH (08:46)
[2021-10-04] MEDS: ASPIRIN 81 MG TAB.CHEW CHEWED SCH (08:46)
[2021-10-04] MEDS: DOCUSATE SODIUM 100 MG CAPSULE PO SCH ×2 (08:47→20:05)
[2021-10-04] MEDS: ENOXAPARIN 40 MG/0.4 ML SYRINGE SQ SCH (08:47)
[2021-10-04] MEDS: INSULIN LISPRO 1 UNIT/0.01 ML UNIT SQ SCH ×4 (08:49→20:05)
--- NOTE | 2021-10-04 11:11 | Internal Med Progress Note ---
SUBJECTIVE Subjective Patient information: Note initiated : 10/04/21 at 11:09 am Service Date, if different from initiated Date: [] Patient: Aliya Muñoz a 66 y/o F admitted on 10/01/21 for Alt. Mental Status. Chief Complaint: [] Interval history: Ms. Muñoz is a 66 year old F history of type 2 diabetes mellitus as well as metastatic breast cancer, presenting with 1 day history of acute onset dysarthria. She was last seen normal at 5 PM yesterday. This morning she was found by caregiver to have dysarthria with word finding difficulties, word salad, and also not entirely following verbal commands. No focal deficit noted but patient has difficulty following verbal command so assessment may not be 100s and accurate. Patient currently does not complain of any pain or discomfort. Vital signs upon ED presentations within normal meds. Labs also largely within normal limits. CT of the head without contrast did not show any acute intracranial pathologies. CTA of the head and neck showing patent arteries with no hemodynamically significant stenosis. 10/02: Patient agreed 2D echocardiogram and repeat CT head w/o, tests performed , re sults pending. Vital signs stable. Refused breakfast. Patient finally agree on therapies and taking her medications. PT/OT/SLT evaluations. Continue dual antiplatelets and statin therapy as well as permissive HTN for 48 hours as part of the treatment for 2nd prevention for acute ischemic stroke. 10/03: Refused food and medications. Suspect clinical depression, will arrange for tele psychiatry evaluation. Out of permissive HTN window, will now focus on aggressive blood pressure control. Continue dual antiplatelets and statin therapy. PT recs. SNF/rehab placement. 10/04: Evaluated by tele-psychiatrist yesterday, no new recommendation. No new complaints or overnight events. Pending SNF/rehab placement. Patient refused and wanted to go home instead. Constitutional Vitals: Vital Signs Temp Pulse Resp BP Pulse Ox 36.8 C 73 16 100/63 95 10/04/21 07:53 10/04/21 07:53 10/04/21 07:53 10/04/21 07:53 10/04/21 07:53 Period Temp Pulse Resp BP Sys/Cuevas Pulse Ox Last 24 Hr 36.3 C-37.3 C 61-78 14-18 98-111/53-63 95-97 Intake and Output 10/03/21 10/04/21 10/04/21 21:59 05:59 13:59 Intake Total 800 100 Output Total 2 1 1 Balance 798 99 -1 Weight 58.922 kg Intake & Output: Intake & Output 10/03/21 10/04/21 10/04/21 21:59 05:59 13:59 Intake Total 800 100 Output Total 2 1 1 Balance 798 99 -1 Weight 58.922 kg Intake: Oral 800 100 Output: # of times incontinent of urine 2 1 1 Other: Meal Lunch Percent of Meal Consumed 100% Feeding Ability Independent Urine Color Bright Yellow # Voids 1 1 1 Head Head exam: Present atraumatic and normal inspection Eye Eye exam: Present normal appearance ENT ENT exam: Present mucous membranes moist, normal exam and normal external ear exam Neck Neck exam: Present normal inspection Respiratory Respiratory exam: Present normal respiratory exam Cardiovascular Cardiovascular exam: Present normal rate and rhythm GI/Abdominal GI/Abdominal exam: Present normal bowel sounds Back Exam Back exam: Present normal inspection Neurological Exam Neurological exam: Present alert and oriented X3 Skin Skin exam: Present intact and warm OBJ DATA Labs CBC & Chem 7: 10/03/21 05:45 10/03/21 05:44 Labs: Abnormal Lab Results 10/03/21 10/02/21 10/02/21 05:45 06:03 06:02 Hct 33.9 L RDW 14.6 H 14.6 H MPV 10.5 H Sodium Carbon Dioxide Creatinine 0.5 L POC Creatinine Glucose 132 H Alkaline Phosphatase Cholesterol 212 H LDL Cholesterol, Calc 148 H Non-HDL Cholesterol 175 H HDL Cholesterol 37 L Urine Ketones Calcium Oxalate Crystal Urine Mucus 10/01/21 10/01/21 10/01/21 16:59 14:06 14:06 Hct RDW 14.6 H MPV Sodium 132 L Carbon Dioxide 21 L Creatinine 0.5 L POC Creatinine 0.4 L Glucose 145 H Alkaline Phosphatase 146 H Cholesterol LDL Cholesterol, Calc Non-HDL Cholesterol HDL Cholesterol Urine Ketones 15 mg/dl A Calcium Oxalate Crystal Few A Urine Mucus Few A Meds: Medications Acetaminophen (Acetaminophen 325 Mg Tablet) 650 mg PO Q6HP PRN; Protocol PRN Reason: Per Pain Protocol/Fever > 101 Albuterol/Ipratropium (Ipratropium/Albuterol 3 Ml Ampul.Neb) 3 ml NEB Q4HRT PRN PRN Reason: Wheezing Aspirin (Aspirin 81 Mg Tab.Chew) 81 mg CHEWED DAILY [facility] Last Admin: 10/04/21 08:46 Dose: 81 mg Documented by: Atorvastatin Calcium (Atorvastatin 40 Mg Tablet) 80 mg PO DAILY [facility] Last Admin: 10/04/21 08:46 Dose: 80 mg Documented by: Clopidogrel Bisulfate (Clopidogrel 75 Mg Tablet) 75 mg PO DAILY [facility] Last Admin: 10/04/21 08:46 Dose: 75 mg Documented by: Dextrose (Dextrose 50% 50 Ml Vial) 0 ml IV UD PRN PRN Reason: Hypoglycemia Diagnostic Test (Pha) (Accu-Chek 1 Each Strip) 1 each FS [facility] Last Admin: 10/04/21 08:50 Dose: 1 each Documented by: Docusate Sodium (Docusate Sodium 100 Mg Capsule) 100 mg PO BID [facility] Last Admin: 10/04/21 08:47 Dose: Not Given Documented by: Enoxaparin Sodium (Enoxaparin 40 Mg/0.4 Ml Syringe) 40 mg SQ DAILY [facility] Last Admin: 10/04/21 08:47 Dose: 40 mg Documented by: Glucose (Dextrose 31 Gm Oral.Susp) 15 gm PO PRN PRN PRN Reason: Hypoglycemia Ibuprofen (Ibuprofen 600 Mg Tablet) 600 mg PO QIDP PRN; Protocol PRN Reason: Per Pain Protocol/Fever > 101 Last Admin: 10/02/21 18:19 Dose: 600 mg Documented by: Insulin Human Lispro (Insulin Lispro 1 Unit/0.01 Ml Unit) 0 unit SQ [facility]; Protocol Last Admin: 10/04/21 08:49 Dose: Not Given Documented by: Ondansetron HCl (Ondansetron 4 Mg/2 Ml Vial) 4 mg IV Q6HP PRN PRN Reason: Nausea And Vomiting Senna (Sennosides 1 Tablet) 2 tab PO HS [facility] Last Admin: 10/03/21 20:09 Dose: Not Given Documented by: Sodium Chloride (0.9 % Sodium Chloride 10 Ml Syringe) 10 ml IV Q8 [facility] Last Admin: 10/04/21 05:19 Dose: Not Given Documented by: Zolpidem Tartrate (Zolpidem 5 Mg Tablet) 5 mg PO HSP PRN PRN Reason: Insomnia A/P Assessment and plan (1) Stroke: Status: Acute (2) Dysarthria: Status: Acute (3) Type 2 diabetes mellitus: Status: Chronic Comment: 10/17/14 Qualifiers: Diabetes mellitus complication status: with hyperglycemia Diabetes mellitus intermodal dispatcher insulin use: with intermodal dispatcher use Qualified Code(s): E11.65 - Type 2 diabetes mellitus with hyperglycemia; Z79.4 - assisted (current) use of insulin (4) History of breast cancer: Status: Chronic (5) Clinical depression: Status: Acute Narrative A/P Narrative: Assessment and Plans: 1. Stroke like symptoms: DDx: TIA Inpatient med surg telemetry Neuro check q4hr NIH stroke scale qshift CC diet Lipid panel HgA1c 6.[address] head w/o contrast, no new changes 2D echocardiogram, no cardioembolic source noted Aspirin Plavix Statin Out of permissive HTN window, will now focus on aggressive blood pressure control Physical therapy Occupational therapy 2. T2DM: HgA1c 6.0 Hold oral hypoglycemics Correctional scale insulin AC HS Accu Chek AC HS Hypoglycemia protocol Okay to feed CC diet after nursing bedside swallowing evaluation 3. h/o metastatic breast cancer: f/u oncology outpatient 4. Clinical depression: Tele psychiatry evaluation--> supports the decision to discharge to strok e/physical rehab upon discharge. GI ppx: not currently indicated DVT ppx: Lovenox Code status: DNI DNR Prognosis: stable Disposition: inpatient med surg telemetry Time Spent With Patient Time: Total time spent is greater than 50% in coordination of care (as documented) at patient's floor/unit and/or counseling patient: Total time spent with greater than 50% in coordination of care (as documented) at patient's floor/unit and/or counseling patient:: Greater than 35 minutes QUALITY Stroke Symptom Onset Unknown: Yes VTE Deep Vein Thrombosis/Pulmonary Embolism Present on Admission: No
--- NOTE | 2021-10-04 12:43 | Internal Med Progress Note ---
SUBJECTIVE Subjective Patient information: Note initiated : 10/04/21 at 12:33 pm Service Date, if different from initiated Date: [] Patient: Aliya Muñoz a 66 y/o F admitted on 10/01/21 for Alt. Mental Status. Chief Complaint: [] Interval history: Ms. Muñoz is a 66 year old F history of type 2 diabetes mellitus as well as metastatic breast cancer, presenting with 1 day history of acute onset dysarthria. She was last seen normal at 5 PM yesterday. This morning she was found by caregiver to have dysarthria with word finding difficulties, word salad, and also not entirely following verbal commands. No focal deficit noted but patient has difficulty following verbal command so assessment may not be 100s and accurate. Patient currently does not complain of any pain or discomfort. Vital signs upon ED presentations within normal meds. Labs also largely within normal limits. CT of the head without contrast did not show any acute intracranial pathologies. CTA of the head and neck showing patent arteries with no hemodynamically significant stenosis. 10/02: Patient agreed 2D echocardiogram and repeat CT head w/o, tests performed , re sults pending. Vital signs stable. Refused breakfast. Patient finally agree on therapies and taking her medications. PT/OT/SLT evaluations. Continue dual antiplatelets and statin therapy as well as permissive HTN for 48 hours as part of the treatment for 2nd prevention for acute ischemic stroke. 10/03: Refused food and medications. Suspect clinical depression, will arrange for tele psychiatry evaluation. Out of permissive HTN window, will now focus on aggressive blood pressure control. Continue dual antiplatelets and statin therapy. PT recs. SNF/rehab placement. 10/04: Evaluated by tele-psychiatrist yesterday, no new recommendation. No new complaints or overnight events. Pending SNF/rehab placement. Patient refused and wanted to go home instead. 10/05 Discussed MRI brain to evaluate for possible stroke, the patient refused. Her stroke like symptoms seem to have resolved, her main complaint is right lower extremity pain. The patient wants to go home, currently appears to have capacity to make that decision. Discussed history of breast cancer, the patient has a history of metastatic spread to her brain and reports a prior craniotomy and radiation therapy. Physical Exam Head: Atraumatic, normal inspection. Eyes: normal appearance, no scleral icterus. Neck: full ROM Respiratory: no respiratory distress. Cardiovascular: normal rate and rhythm, S1, S2. GI/Abdominal: soft, nontender, no guarding. Extremities: full range of motion, nontender. Neurological: CN II-XII intact, intact motor, intact sensation. Psychiatric: normal mood. Skin: warm, normal color Constitutional Vitals: Vital Signs Temp Pulse Resp BP Pulse Ox 97.8 F 76 16 108/60 95 10/04/21 12:00 10/04/21 12:00 10/04/21 12:00 10/04/21 12:00 10/04/21 12:00 Period Temp Pulse Resp BP Sys/Cuevas Pulse Ox Last 24 Hr 97.3 F-99.2 F 71-78 14-18 98-111/56-63 95-97 Intake and Output 10/03/21 10/04/21 10/04/21 21:59 05:59 13:59 Intake Total 800 100 260 Output Total 2 1 1 Balance 798 99 259 Weight 58.922 kg Intake & Output: Intake & Output 10/03/21 10/04/21 10/04/21 21:59 05:59 13:59 Intake Total 800 100 260 Output Total 2 1 1 Balance 798 99 259 Weight 58.922 kg Intake: Oral 800 100 260 Output: # of times incontinent of urine 2 1 1 Other: Meal Lunch Breakfast Percent of Meal Consumed 100% 0% Feeding Ability Independent Urine Color Bright Yellow # Voids 1 1 1 OBJ DATA Labs CBC & Chem 7: 10/03/21 05:45 10/03/21 05:44 Labs: Abnormal Lab Results 10/03/21 10/02/21 10/02/21 05:45 06:03 06:02 Hct 33.9 L RDW 14.6 H 14.6 H MPV 10.5 H Sodium Carbon Dioxide Creatinine 0.5 L POC Creatinine Glucose 132 H Alkaline Phosphatase Cholesterol 212 H LDL Cholesterol, Calc 148 H Non-HDL Cholesterol 175 H HDL Cholesterol 37 L Urine Ketones Calcium Oxalate Crystal Urine Mucus 10/01/21 10/01/21 10/01/21 16:59 14:06 14:06 Hct RDW 14.6 H MPV Sodium 132 L Carbon Dioxide 21 L Creatinine 0.5 L POC Creatinine 0.4 L Glucose 145 H Alkaline Phosphatase 146 H Cholesterol LDL Cholesterol, Calc Non-HDL Cholesterol HDL Cholesterol Urine Ketones 15 mg/dl A Calcium Oxalate Crystal Few A Urine Mucus Few A Meds: Medications Acetaminophen (Acetaminophen 325 Mg Tablet) 650 mg PO Q6HP PRN; Protocol PRN Reason: Per Pain Protocol/Fever > 101 Albuterol/Ipratropium (Ipratropium/Albuterol 3 Ml Ampul.Neb) 3 ml NEB Q4HRT PRN PRN Reason: Wheezing Aspirin (Aspirin 81 Mg Tab.Chew) 81 mg CHEWED DAILY [facility] Last Admin: 10/04/21 08:46 Dose: 81 mg Documented by: Atorvastatin Calcium (Atorvastatin 40 Mg Tablet) 80 mg PO DAILY [facility] Last Admin: 10/04/21 08:46 Dose: 80 mg Documented by: Clopidogrel Bisulfate (Clopidogrel 75 Mg Tablet) 75 mg PO DAILY [facility] Last Admin: 10/04/21 08:46 Dose: 75 mg Documented by: Dextrose (Dextrose 50% 50 Ml Vial) 0 ml IV UD PRN PRN Reason: Hypoglycemia Diagnostic Test (Pha) (Accu-Chek 1 Each Strip) 1 each FS [facility] Last Admin: 10/04/21 08:50 Dose: 1 each Documented by: Docusate Sodium (Docusate Sodium 100 Mg Capsule) 100 mg PO BID [facility] Last Admin: 10/04/21 08:47 Dose: Not Given Documented by: Enoxaparin Sodium (Enoxaparin 40 Mg/0.4 Ml Syringe) 40 mg SQ DAILY [facility] Last Admin: 10/04/21 08:47 Dose: 40 mg Documented by: Glucose (Dextrose 31 Gm Oral.Susp) 15 gm PO PRN PRN PRN Reason: Hypoglycemia Ibuprofen (Ibuprofen 600 Mg Tablet) 600 mg PO QIDP PRN; Protocol PRN Reason: Per Pain Protocol/Fever > 101 Last Admin: 10/02/21 18:19 Dose: 600 mg Documented by: Insulin Human Lispro (Insulin Lispro 1 Unit/0.01 Ml Unit) 0 unit SQ [facility] Protocol Last Admin: 10/04/21 08:49 Dose: Not Given Documented by: Ondansetron HCl (Ondansetron 4 Mg/2 Ml Vial) 4 mg IV Q6HP PRN PRN Reason: Nausea And Vomiting Senna (Sennosides 1 Tablet) 2 tab PO HS [facility] Last Admin: 10/03/21 20:09 Dose: Not Given Documented by: Sodium Chloride (0.9 % Sodium Chloride 10 Ml Syringe) 10 ml IV Q8 [facility] Last Admin: 10/04/21 05:19 Dose: Not Given Documented by: Zolpidem Tartrate (Zolpidem 5 Mg Tablet) 5 mg PO HSP PRN PRN Reason: Insomnia A/P Narrative A/P Narrative: Assessment: 66-year-old female with a history of type 2 diabetes mellitus, metastatic breast cancer with prior brain metastasis s/p craniotomy who presented to the ED with new onset dysarthria and aphasia felt to be concerning for an acute ischemic stroke. CT head without contrast did not reveal any evidence of hemorrhagic stroke or evolving ischemic stroke. CTA head and neck did not reveal any hemodynamically significant arterial stenosis. The patient wa s last known normal the day prior to admission therefore not a candidate for TPA. The patient was admitted for further evaluation and management. The patient's symptoms have resolved. #Resolved Dysphagia, dysarthria, of uncertain etiology #Concern for possible acute ischemic stroke versus other etiology #Right lower extremity pain #Intermittent behavioral disturbances #Type 2 diabetes mellitus #Metastatic breast cancer #Depression Plan -Neurochecks/NIHSS -The patient refused an MRI brain. -Continue aspirin, Plavix, statin. 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
[2021-10-04] MEDS: SENNOSIDES 1 TABLET PO SCH (20:06)
[2021-10-04] MEDS ORDERED: MELATONIN 3 MG TABLET PO PRN (21:00)
[2021-10-05] MEDS: 0.9 % SODIUM CHLORIDE 10 ML SYRINGE IV SCH ×2 (05:22→15:33)
[2021-10-05] MEDS: INSULIN LISPRO 1 UNIT/0.01 ML UNIT SQ SCH ×4 (07:22→22:01)
[2021-10-05] MEDS: ENOXAPARIN 40 MG/0.4 ML SYRINGE SQ SCH (08:01)
[2021-10-05] MEDS: ASPIRIN 81 MG TAB.CHEW CHEWED SCH (08:03)
[2021-10-05] MEDS: CLOPIDOGREL 75 MG TABLET PO SCH (08:03)
[2021-10-05] MEDS: ATORVASTATIN 40 MG TABLET PO SCH (08:04)
[2021-10-05] MEDS: DOCUSATE SODIUM 100 MG CAPSULE PO SCH ×2 (08:04→22:01)
[2021-10-05] MEDS: SENNOSIDES 1 TABLET PO SCH (22:02)
[2021-10-06] MEDS: INSULIN LISPRO 1 UNIT/0.01 ML UNIT SQ SCH ×3 (08:04→16:58)
[2021-10-06] MEDS: DOCUSATE SODIUM 100 MG CAPSULE PO SCH (08:05)
[2021-10-06] MEDS: ATORVASTATIN 40 MG TABLET PO SCH (08:05)
[2021-10-06] MEDS: ASPIRIN 81 MG TAB.CHEW CHEWED SCH (08:05)
[2021-10-06] MEDS: CLOPIDOGREL 75 MG TABLET PO SCH (08:05)
[2021-10-06] MEDS: ENOXAPARIN 40 MG/0.4 ML SYRINGE SQ SCH (08:05)
--- NOTE | 2021-10-06 13:35 | Discharge Summary ---
Discharge Provider Provider Patient information: Note initiated : 10/06/21 at 1:30 pm Service Date, if different from initiated Date: [] Patient: Aliya Muñoz a 66 y/o F admitted on 10/01/21 for Alt. Mental Status. Chief Complaint: [] Date of admission: 10/01/21 17:10 Discharge date: 10/06/21 Primary care physician: PCP No Consults: 10/01/21 Consult to Physician [CONS] Stat Comment: Consulting Provider: Michael Sen Reason For Exam: Physician to Consult Consult to Physician [CONS] Stat Comment: Consulting Provider: Michael Sen Reason For Exam: Physician to Consult 10/01/21 14:13 Consult to Physician [CONS] Stat Comment: Consulting Provider: [facility],Provider Reason For Exam: Physician to Consult 10/03/21 10:03 Consult to Physician [CONS] Routine Comment: Consulting Provider: [facility] Reason For Exam: Physician to Consult Discharge Meds Discharge Medications Home Medications glyburide 1.25 mg tablet 1.25 mg PO TID #90 tab 04/23/20 [Rx Confirmed 10/05/21 Last Taken Unknown] dexamethasone 4 mg tablet (Decadron) 4 mg PO QDAY #30 tab 05/30/20 [Rx Confirmed 10/05/21 Last Taken Unknown] COURSE Hospital Course Hospital course: Ms. Muñoz is a 66 year old F history of type 2 diabetes mellitus as well as metastatic breast cancer, presenting with 1 day history of acute onset dys arthria. She was last seen normal at 5 PM yesterday. This morning she was found by caregiver to have dysarthria with word finding difficulties, word salad, and also not entirely following verbal commands. No focal deficit noted but patient has difficulty following verbal command so assessment may not be 100s and accurate. Patient currently does not complain of any pain or discomfort. Vital signs upon ED presentations within normal meds. Labs also largely within normal limits. CT of the head without contrast did not show any acute intracranial pathologies. CTA of the head and neck showing patent arteries with no hemodynamically significant stenosis. 10/02: Patient agreed 2D echocardiogram and repeat CT head w/o, tests performed , results pending. Vital signs stable. Refused breakfast. Patient finally agree on therapies and taking her medications. PT/OT/SLT evaluations. Continue dual antiplatelets and statin therapy as well as permissive HTN for 48 hours as part of the treatment for 2nd prevention for acute ischemic stroke. 10/03: Refused food and medications. Suspect clinical depression, will arrange for tele psychiatry evaluation. Out of permissive HTN window, will now focus on aggressive blood pressure control. Continue dual antiplatelets and statin therapy. PT recs. SNF/rehab placement. 10/04: Evaluated by tele-psychiatrist yesterday, no new recommendation. No new com plaints or overnight events. Pending SNF/rehab placement. Patient refused and wanted to go home instead. 10/05 Discussed MRI brain to evaluate for possible stroke, the patient refused. Her stroke like symptoms seem to have resolved, her main complaint is right lower extremity pain. The patient wants to go home, currently appears to have capacity to make that decision. Discussed history of breast cancer, the patient has a history of metastatic spread to her brain and reports a prior craniotomy and radiation therapy. 10/06 The patient is likely at her baseline, she has refused an MRI brain. I doubt the patient had an ischemic stroke, this may be related to her prior craniotomy. The patient again refused SNF for rehab. Discharged to home with caregiver support and home health. No new medications. Physical Exam Head: Atraumatic, normal inspection. Eyes: normal appearance, no scleral icterus. Neck: full ROM Respiratory: no respiratory distress. Cardiovascular: normal rate and rhythm, S1, S2. GI/Abdominal: soft, nontender, no guarding. Extremities: full range of motion, nontender. Neurological: CN II-XII intact, intact motor, intact sensation. Psychiatric: normal mood. Skin: warm, normal color Discharge diagnosis: Altered mental status Time Spent with Patient Time attestation: Total time spent providing and/or coordinating discharge services: EXAM Constitutional Vitals: Temp Pulse Resp BP Pulse Ox 97.1 F 85 17 103/61 92 10/06/21 12:00 10/06/21 12:00 10/06/21 12:10/06/21 12:10/06/21 12:00 Discharge Plan Patient/Caregiver Discharge Instructions Activity: increase activity as tolerated Diet: Consistent Carbohydrate Prescriptions: Continued glyburide 1.25 mg tablet 1.25 mg PO TID Qty: 90 0RF dexamethasone [Decadron] 4 mg tablet 4 mg PO QDAY Qty: 30 0RF Other Ambulatory Orders: OT Discharge Order (Routine) Location: None Selected Ordered By: Wade Ames Physical Therapy at Discharge - General (Routine) Location: None Selected Ordered By: Wade Ames Follow Up Plan Follow up with: No,PCP [Primary Care Provider] - Patient Disposition: Home Health Service Overall status at discharge: patient is progressing back to baseline Discharge Orders: Discharge Order (Routine); Ordered 10/06/21 Ordered By: Wade Ames QUALITY VTE Deep Vein Thrombosis/Pulmonary Embolism Present on Admission: No
== END 2021-10-06 17:20 | disposition home health service (06) | DRG 948 ==
LOC: ED 12:39 → ICU 17:10 → MEDSUR 10-02 07:46
PROVIDERS: ADMIT Internal Medicine; ATTEND Internal Medicine

== ENCOUNTER 2022-01-01 15:31 | Inpatient (IN) ==
[2022-01-01] MEDS: HYDROmorphone 0.5 MG/0.5 ML SYRINGE IV PRN ×4 (15:52→21:45)
--- NOTE | 2022-01-01 16:03 | Emergency Department Note ---
Extremity Problem HPI General Chief complaint: Trauma Stated complaint: L leg pain Time Seen by Provider: 01/01/22 15:54 Source: EMS Mode of arrival: EMS Limitations: physical limitation History of Present Illness HPI Narrative: Narrative: 66-year-old female presents the ER to be evaluated for left hip pain as well as bilateral tib-fib, ankle and foot pain. She had her feet under a chair and she fell backwards with her feet and trapped and then impacted her left hip. She did not hit her head or neck, did not lose consciousness has had no nausea or vomiting and is not on any blood thinners. She has no upper extremity issues. Her main concern is her left hip pain at this time. Patient has a history of metastatic breast cancer with widespread metastases. Related Data Previous Rx's Medication Instructions Recorded glyburide 1.25 mg tablet 1.25 mg PO TID #90 tab 04/23/20 dexamethasone 4 mg tablet 4 mg PO QDAY #30 tab 05/30/20 (Decadron) Allergies Allergy/AdvReac Type Severity Reaction Status Date / Time phenol Allergy Unknown Unknown Verified 01/01/22 15:34 propylene glycol Allergy Unknown Unknown Verified 01/01/22 15:34 baclofen AdvReac Mild Abdominal Verified 01/01/22 15:34 Pain bupropion [From Wellbutrin] AdvReac Mild Blisters Verified 01/01/22 15:34 exenatide microspheres AdvReac Mild Other Verified 01/01/22 15:34 [From Bydureon] liraglutide [From Victoza] AdvReac Mild Muscle Pain Verified 01/01/22 15:34 metformin AdvReac Mild Diarrhea Verified 01/01/22 15:34 morphine AdvReac Unknown Unknown Verified 01/01/22 15:34 Codeine Deriv Allergy Unknown Skin Uncoded 04/30/20 13:25 Reaction Review of Systems ROS ROS Narrative: Narrative: All systems ED: reviewed and negative except as stated. PFSH Narrative Patient History Narrative: Narrative: Medical/Surgical/Family History All Active Problems (Updated 01/01/22 @ 18:27 by Hernan Allen PA-C) Closed fracture of left hip (Acute) Bone metastases (Acute) Clinical depression (Acute) Dysarthria (Acute) Stroke (Acute) Left leg weakness (Acute) Malignant neoplasm metastatic to brain (Acute) Hyperlipidemia (Chronic) Hx of right breast biopsy (Acute 09/12/14) Hx of laparoscopy (Acute) Hx of colonoscopy (Acute 09/27/14) Hx of section (Acute) Cholelithiasis (Acute) Leg pain (Acute) Metastatic carcinoma (Chronic) Weakness (Acute) History of breast cancer (Chronic) Tobacco abuse (Chronic) Diabetic neuropathy (Chronic) Bilateral leg pain (Acute) Left against medical advice (Acute) Chronic leg pain (Chronic) Abscess (Acute) Diabetes mellitus type 2 with complications, uncontrolled (Chronic) Headache (Chronic) Eczema of face (Chronic) Sacroiliac dysfunction (Chronic) Diabetes mellitus (Chronic) Osteoporosis (Chronic) Menopausal syndrome (Chronic) Colon polyp (Chronic 09/27/14) Breast cancer (Chronic 10/17/14) Type 2 diabetes mellitus (Chronic) Medical History Bilateral leg pain Colon polyp (09/27/14) HP Diabetes mellitus type 2 with complications, uncontrolled Diabetic neuropathy Eczema of face History of breast cancer HX: breast cancer 09/26/14-pant right Hyperlipidemia Hypothyroidism (acquired) Left leg weakness Leg pain Menopausal syndrome Metastatic carcinoma Osteoporosis Sacroiliac dysfunction Tobacco abuse Type 2 diabetes mellitus 10/17/14 Weakness Surgical History Breast cancer (10/17/14) 2015 - Followed by Dr. [facility], surgery, chemotherapy, radiation, refused hormone therapy Cholelithiasis Hx of section 9 pregnancies multiple cerclages to try to get to term but all failed, one born by CS because of fo cervical stenosis~SWAPNIL Hx of colonoscopy (09/27/14) HP Hx of laparoscopy Hx of right breast biopsy (09/12/14) [facility]- See path report Family History multiple Aunts Malignant neoplasm of breast multiple paternal Aunts Unknown Malignant neoplasm of colon Multiple family members not specified which ones Family history of malignant neoplasm of breast Malignant neoplasm Type 2 diabetes mellitus Father Ischemic heart disease due to coronary artery obstruction Valvular heart disease Malignant neoplasm of colon Social History Smoking Status: Current every day smoker Alcohol Intake Frequency: does not drink Substance Use: does not use Exam Narrative Narrative: Narrative: Gen: Patient moaning in pain severely cachectic Eyes: PERRL, no conjunctival injection , and symmetrical lids. Sclerae non icteric HENMT: Normocephalic Atraumatic head, external nose and ears. Moist MM. Neck: Symmetric, trachea midline, no midline neck tenderness CVS: +S1/S2, No murmurs or gallops. Radial pulses 2+ and equal bilat. No swelling RESP: Unlabored respiratory effort . Clear to auscultation bilaterally (CTAB). No noted wheezes rales or ronchi. GI: Nontender/Nondistended (NTND), No focal tenderness Back: No midline back tenderness cervical to lumbar spine MSK: No upper extremity deformity or tenderness, patient has tenderness over the left hip, left tib-fib, left ankle and left foot. Right ankle, right foot and right tib-fib as well. Right hip is okay. DP and PT are 2+ in the lower extr emities with normal cap refill, color and temperature Skin: Warm, Dry . No rashes or lesions . Cap refill less than 2. Neuro: No focal neurological deficit Psych: Awake, Alert, & Oriented (AAO) x3. Appropriate mood and affect . General Limitations: physical limitation Course Vital Signs Vital signs: Vital Signs Temperature 97.7 F 01/01/22 15:32 Pulse Rate 112 H 01/01/22 15:32 Respiratory Rate 12 01/01/22 15:32 Blood Pressure 121/68 01/01/22 15:32 Pulse Oximetry (%) 95 01/01/22 15:32 Temperature 97.7 F 01/01/22 15:32 Pulse Rate 88 01/01/22 16:31 Respiratory Rate 12 01/01/22 15:32 Blood Pressure 128/61 01/01/22 17:01 Pulse Oximetry (%) 96 01/01/22 16:31 [facility] MDM Narrative Medical decision making narrative: Narrative: Patient will be given Dilaudid titrated order and will be evaluated with a left hip, bilateral tib-fib, bilateral ankle and bilateral foot studies. Left hip: IMPRESSION: Acute basicervical fracture left hip with coxa valga angulation Widely disseminated osteolytic foci throughout the pelvis and proximal femurs have progressed in size and number from the previous exam. Suspect multiple myeloma or multiple lytic metastases. Lytic Interpreted and Authenticated by: Job Arevalo 01/01/22 Tib Fib Bilat:MPRESSION: No fracture. Widely disseminated metastases or multiple myeloma Right foot:IMPRESSION: 1. No acute fracture. Solidly unified old spiral fracture of the right first metatarsal in anatomic alignment. 2. Scattered vague osteolytic foci throughout the ankle and foot. Suspect metastases from prior breast cancer or, less likely, multiple myeloma. 3. Other chronic findings as described Dr Ramos will be consulted: Can do hip arthoplasty for pain control, but with poor prognosis, hospice may be better option. Admit to hospitalist can eat as needed with see tomorrow and discuss w/hospitalist Hospitalist will be consulted Dr Tony: Graciously agreed to admit the patient for further evaluation. CBC and CMP are pending at this time. Discharge Plan Patient/Caregiver Discharge Instructions Pt seen by IT APPLICATION DEVELOPMENT MANAGER/PA only: Yes Clinical Impression: Closed fracture of left hip, Bone metastases Patient Disposition: Xfer As Inpt ([facility]) Follow up with: No,PCP [Primary Care Provider] - Prescriptions: No Action glyburide 1.25 mg tablet 1.25 mg PO TID Qty: 90 0RF dexamethasone [Decadron] 4 mg tablet 4 mg PO QDAY Qty: 30 0RF
--- NOTE | 2022-01-01 17:30 | XRay Report ---
CLINICAL INFORMATION: Trauma COMPARISON: 02/27/2020 FINDINGS: Multiple osteolytic lesions, widely disseminated throughout the pelvis and proximal femurs, have increased in size and number from the previous exam. An acute basicervical fracture through the left femoral neck results in coxa vera angulation. No displacement. Moderate degeneration left hip and mild degeneration right hip and SI joints appreciated. Moderate stool appreciated. IMPRESSION: Acute basicervical fracture left hip with coxa valga angulation Widely disseminated osteolytic foci throughout the pelvis and proximal femurs have progressed in size and number from the previous exam. Suspect multiple myeloma or multiple lytic metastases. Lytic Interpreted and Authenticated by: Job Arevalo 01/01/22
--- NOTE | 2022-01-01 17:34 | XRay Report ---
CLINICAL INFORMATION: Pain-trauma COMPARISON: Right foot 07/21/2017 FINDINGS: No acute fracture identified. Two screws transfix an old solidly unified oblique fracture of the distal right first metatarsal. There appear to be vague scattered small osteolytic foci throughout the foot and ankle may represent metastases or myeloma. Mild left hallux valgus and moderate bilateral metatarsus abductus appreciated. There are hammertoe deformities the second through fifth digits bilaterally. Mild degenerative change in the interphalangeal joints bilaterally. Mild diffuse soft tissue swelling bilaterally. IMPRESSION: 1. No acute fracture. Solidly unified old spiral fracture of the right first metatarsal in anatomic alignment. 2. Scattered vague osteolytic foci throughout the ankle and foot. Suspect metastases from prior breast cancer or, less likely, multiple myeloma. 3. Other chronic findings as described Interpreted and Authenticated by: Job Arevalo 01/01/22
--- NOTE | 2022-01-01 17:36 | XRay Report ---
CLINICAL INFORMATION: Trauma COMPARISON: None FINDINGS: No fracture identified. There are multiple osteolytic lesions widely disseminated throughout the tibia and, to a lesser extent, the distal femur and fibula. Findings compatible with osteolytic metastases or multiple myeloma. Mild bilateral patellofemoral and tibiofemoral degeneration appreciated. Soft tissues are normal. IMPRESSION: No fracture. Widely disseminated metastases or multiple myeloma Interpreted and Authenticated by: Job Arevalo 01/01/22
[2022-01-01] MEDS ORDERED: KETAMINE 10 MG/ML ML IV ONE (18:02)
[2022-01-01 19:15] LABS: Basophils # (Auto) 0.04 K/mcL (0.00-0.30); Basophils % (Auto) 0.4 % (0.0-2.0); Eosinophils # (Auto) 0.03 K/mcL (0.00-0.70); Eosinophils % (Auto) 0.3 % (0.0-7.0); Hematocrit 35.9 % (34.1-44.9); Hemoglobin 12.2 g/dL (11.2-15.7); Lymphocytes # (Auto) 2.45 K/mcL (1.50-4.80); Lymphocytes % (Auto) 25.3 % (15.5-49.0); Mean Cell Volume 87.8 fL (80.0-100.0); Mean Platelet Volume 9.7 fL (7.4-10.4); Monocytes # (Auto) 0.78 K/mcL (0.10-0.90); Monocytes % (Auto) 8.1 % (1.0-12.0); Neutrophils % (Auto) 65.9 % (38.0-78.0); Platelet Count 236 K/mcL (140-440); RBC 4.09 M/mcL (3.59-5.38); Red Cell Distribution Width 14.6 % (11.5-14.5); WBC 9.7 K/mcL (4.5-11.0)
[2022-01-01] MEDS ORDERED: ONDANSETRON 4 MG/2 ML VIAL IV PRN (19:36)
[2022-01-01] MEDS ORDERED: ONDANSETRON 4 MG/2 ML VIAL IV ONE (19:37)
[2022-01-01] MEDS ORDERED: ALBUTEROL SULFATE 2.5 MG/3 ML NEBULIZER NEB PRN (19:38)
[2022-01-01] MEDS ORDERED: BISACODYL 10 MG SUPP.RECT PR PRN (19:38)
[2022-01-01] MEDS ORDERED: NALOXONE HCL 0.4 MG/ML VIAL IV PRN (19:38)
[2022-01-01] MEDS ORDERED: IPRATROPIUM/ALBUTEROL 3 ML AMPUL.NEB NEB PRN (19:38)
[2022-01-01] MEDS ORDERED: MAG HYDROX/AL HYDROX/SIMETH 30 ML ORAL.SUSP PO PRN (19:38)
[2022-01-01] MEDS ORDERED: PROCHLORPERAZINE 10 MG/2 ML VIAL IV PRN (19:38)
[2022-01-01] MEDS ORDERED: MAGNESIUM HYDROXIDE 30 ML ORAL.SUSP PO PRN (19:38)
[2022-01-01] MEDS ORDERED: CALCIUM CARBONATE 500 MG TAB.CHEW CHEWED PRN (19:38)
[2022-01-01] MEDS ORDERED: ONDANSETRON 4 MG ODT TABLET SL PRN (19:38)
[2022-01-01] MEDS ORDERED: ACETAMINOPHEN 325 MG TABLET PO PRN (19:38)
[2022-01-01 19:39] LABS: ALT/SGPT 13 U/L (<40); AST/SGOT 28 U/L (<32); Albumin 4.1 gm/dL (3.2-5.2); Albumin/Globulin Ratio 1.6 (1.0-2.3); Alkaline Phosphatase 142 U/L (39-117); Bilirubin,Total 0.8 mg/dL (0.1-1.0); Blood Urea Nitrogen 27 mg/dL (8-23); Calcium 10.9 mg/dL (8.6-10.4); Carbon Dioxide 22 mmol/L (22-30); Chloride 97 mmol/L (96-108); Globulin 2.5 gm/dL (2.2-3.7); Glomerular Filtration Rate 100; Glucose 127 mg/dL (70-105)
[2022-01-01] MEDS: DOCUSATE SODIUM 100 MG CAPSULE PO SCH (21:36)
[2022-01-01] MEDS: SENNOSIDES 1 TABLET PO SCH (21:36)
[2022-01-01] MEDS: 0.9 % SODIUM CHLORIDE 10 ML SYRINGE IV SCH (21:45)
[2022-01-01] MEDS: 0.9 % SODIUM CHLORIDE 1,000 ML IV SCH (21:45)
[2022-01-01] MEDS: traMADol 50 MG TABLET PO SCH (21:45)
[2022-01-01] MEDS: FAMOTIDINE/PF 20 MG/2 ML VIAL IV SCH (21:45)
[2022-01-01] MEDS ORDERED: QUEtiapine 25 MG TABLET PO PRN (22:25)
[2022-01-01] MEDS ORDERED: hydrALAZINE 20 MG/ML VIAL IV PRN (22:34)
[2022-01-02] MEDS: 0.9 % SODIUM CHLORIDE 10 ML SYRINGE IV SCH ×3 (05:01→20:28)
[2022-01-02] MEDS: traMADol 50 MG TABLET PO SCH ×3 (05:01→20:16)
[2022-01-02 08:41] LABS: Basophils # (Auto) 0.02 K/mcL (0.00-0.30); Basophils % (Auto) 0.2 % (0.0-2.0); Eosinophils # (Auto) 0.01 K/mcL (0.00-0.70); Eosinophils % (Auto) 0.1 % (0.0-7.0); Hematocrit 34.5 % (34.1-44.9); Hemoglobin 11.5 g/dL (11.2-15.7); Lymphocytes # (Auto) 1.56 K/mcL (1.50-4.80); Lymphocytes % (Auto) 18.6 % (15.5-49.0); Mean Cell Volume 89.4 fL (80.0-100.0); Mean Corpuscular HGB Conc 33.3 g/dL (31.0-36.0); Mean Platelet Volume 9.9 fL (7.4-10.4); Monocytes # (Auto) 0.67 K/mcL (0.10-0.90); Neutrophils % (Auto) 73.1 % (38.0-78.0); Platelet Count 236 K/mcL (140-440); RBC 3.86 M/mcL (3.59-5.38); Red Cell Distribution Width 14.9 % (11.5-14.5); WBC 8.4 K/mcL (4.5-11.0)
[2022-01-02] MEDS: HYDROmorphone 0.5 MG/0.5 ML SYRINGE IV PRN ×3 (09:16→19:25)
[2022-01-02] MEDS: DOCUSATE SODIUM 100 MG CAPSULE PO SCH ×2 (09:16→20:21)
[2022-01-02] MEDS: 0.9 % SODIUM CHLORIDE 1,000 ML IV SCH (09:17)
[2022-01-02] MEDS: FAMOTIDINE/PF 20 MG/2 ML VIAL IV SCH ×2 (09:17→20:16)
[2022-01-02 09:20] LABS: ALT/SGPT 12 U/L (<40); AST/SGOT 26 U/L (<32); Albumin 3.6 gm/dL (3.2-5.2); Albumin/Globulin Ratio 1.3 (1.0-2.3); Alkaline Phosphatase 135 U/L (39-117); Bilirubin,Total 0.5 mg/dL (0.1-1.0); Blood Urea Nitrogen 23 mg/dL (8-23); Calcium 10.7 mg/dL (8.6-10.4); Carbon Dioxide 24 mmol/L (22-30); Chloride 102 mmol/L (96-108); Globulin 2.8 gm/dL (2.2-3.7); Glomerular Filtration Rate 108; Glucose 128 mg/dL (70-105)
--- NOTE | 2022-01-02 16:21 | Orthopedic History & Physical ---
HPI History of Present Illness Patient information: Note initiated : 01/02/22 at 4:08 pm Service Date, if different from initiated Date: [] Patient: Aliya Muñoz a 66 y/o F admitted on 01/01/22 for L leg pain. Chief Complaint: [Left hip pain status post fall] Chief complaint: Left hip pain status post fall History of present illness: Ms. Muñoz is a 66-year-old female presents the ER to be evaluated for left hip pain She had her feet under a chair and she fell backwards with her feet and trapped and then impacted her left hip. She did not hit her head or neck, did not lose consciousness has had no nausea or vomiting and is not on any blood thinners. She has no upper extremity issues. 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 Imaging obtained in the emergency department revealed a subcapital fracture of the left femoral neck, Dr. Ramos orthopedic surgeon was counseled to for treatment options. Review of Systems All systems: reviewed and no additional remarkable complaints except as stated Musculoskeletal Musculoskeletal: Present limited range of motion Additional comments: Left hip pain PFSH PFSH All Active Problems Closed fracture of left hip (Acute) Bone metastases (Acute) Clinical depression (Acute) Dysarthria (Acute) Stroke (Acute) Left leg weakness (Acute) Malignant neoplasm metastatic to brain (Acute) Hyperlipidemia (Chronic) Hx of right breast biopsy (Acute 09/12/14) Hx of laparoscopy (Acute) Hx of colonoscopy (Acute 09/27/14) Hx of section (Acute) Cholelithiasis (Acute) Leg pain (Acute) Metastatic carcinoma (Chronic) Weakness (Acute) History of breast cancer (Chronic) Tobacco abuse (Chronic) Diabetic neuropathy (Chronic) Bilateral leg pain (Acute) Left against medical advice (Acute) Chronic leg pain (Chronic) Abscess (Acute) Diabetes mellitus type 2 with complications, uncontrolled (Chronic) Headache (Chronic) Eczema of face (Chronic) Sacroiliac dysfunction (Chronic) Diabetes mellitus (Chronic) Osteoporosis (Chronic) Menopausal syndrome (Chronic) Colon polyp (Chronic 09/27/14) Breast cancer (Chronic 10/17/14) Type 2 diabetes mellitus (Chronic) Medical History Bilateral leg pain Colon polyp (09/27/14) HP Diabetes mellitus type 2 with complications, uncontrolled Diabetic neuropathy Eczema of face History of breast cancer HX: breast cancer 09/26/14-pant right Hyperlipidemia Hypothyroidism (acquired) Left leg weakness Leg pain Menopausal syndrome Metastatic carcinoma Osteoporosis Sacroiliac dysfunction Tobacco abuse Type 2 diabetes mellitus 10/17/14 Weakness Surgical History Breast cancer (10/17/14) 2015 - Followed by Dr. [facility], surgery, chemotherapy, radiation, refused hormone therapy Cholelithiasis Hx of section 9 pregnancies multiple cerclages to try to get to term but all failed, one born by CS because of fo cervical stenosis~SWAPNIL Hx of colonoscopy (09/27/14) HP Hx of laparoscopy Hx of right breast biopsy (09/12/14) [facility]- See path report Family History multiple Aunts Malignant neoplasm of breast multiple paternal Aunts Unknown Malignant neoplasm of colon Multiple family members not specified which ones Family history of malignant neoplasm of breast Malignant neoplasm Type 2 diabetes mellitus Father Ischemic heart disease due to coronary artery obstruction Valvular heart disease Malignant neoplasm of colon Social History marital status: occupational status: retired alcohol intake frequency: does not drink substance use type: does not use hiram/voodoo: None seatbelt use: always MEDS/ALLERGIES Home Medications and Allergies Home Medications Medication Instructions Recorded Confirmed Type glyburide 1.25 mg tablet 1.25 mg PO TID #90 tab 04/23/20 01/01/22 Rx dexamethasone 4 mg tablet 4 mg PO QDAY #30 tab 05/30/20 01/01/22 Rx (Decadron) Allergies Allergy/AdvReac Type Severity Reaction Status Date / Time morphine Allergy Unknown Unknown Verified 01/02/22 06:53 phenol Allergy Unknown Unknown Verified 01/01/22 15:34 propylene glycol Allergy Unknown Unknown Verified 01/01/22 15:34 baclofen AdvReac Mild Abdominal Verified 01/01/22 15:34 Pain bupropion [From Wellbutrin] AdvReac Mild Blisters Verified 01/01/22 15:34 exenatide microspheres AdvReac Mild Other Verified 01/01/22 15:34 [From Bydureon] liraglutide [From Victoza] AdvReac Mild Muscle Pain Verified 01/01/22 15:34 metformin AdvReac Mild Diarrhea Verified 01/01/22 15:34 Codeine Deriv Allergy Unknown Skin Uncoded 04/30/20 13:25 Reaction Physical Examination Narrative Narrative: Narrative: Results Labs Result Diagrams: 01/02/22 06:01 01/02/22 06:01 Labs: Abnormal lab results 01/01/22 01/01/22 01/02/22 Range/Units 18:30 18:30 06:01 RDW 14.6 H 14.9 H (11.5-14.5) % BUN 27 H (8-23) mg/dL Creatinine 0.5 L (0.6-1.1) mg/dL Glucose 127 H (70-105) mg/dL Calcium 10.9 H (8.6-10.4) mg/dL Alkaline Phosphatase 142 H (39-117) U/L 01/02/22 Range/Units 06:01 RDW (11.5-14.5) % BUN (8-23) mg/dL Creatinine 0.4 L (0.6-1.1) mg/dL Glucose 128 H (70-105) mg/dL Calcium 10.7 H (8.6-10.4) mg/dL Alkaline Phosphatase 135 H (39-117) U/L H & H 01/01/22 01/02/22 Range/Units 18:30 06:01 Hgb 12.2 11.5 (11.2-15.7) g/dL Hct 35.9 34.5 (34.1-44.9) % All other labs normal. A/P Narrative A/P Narrative: On exam patient is lying in bed in no acute distress. She is alert and oriented 3 , CN II through XII are intact to gross testing. Pupils are PERRLA, With intact ocular motion. mucous membranes are moist Lungs are equal and clear bilaterally heart normal rate and rhythm. Head, neck, chest and bilateral upper extremities are nontender to palpation with intact motion and strength. At the left hip there is tenderness to palpation and with any range of motion. Right hip is nontender to palpation, bilateral lower extremities are warm, well perfused and neurovascularly intact. I discussed options for treatment with the patient including conservative and surgical options. I had a long lengthy discussion with the patient over possible treatment options after which she responded "Was I suppose to be listening to you?". Given the patient's metastatic disease and severe bone metastasis, surgical intervention at the left hip presents severe risk of bleeding, intraoperative fracture and failure of any implanted components. I did also discussed this case with Dr. Dill orthopedic surgeon who concurs conservative treatment co nsisting of pain control and bracing with limited range of motion of the left hip area, is the best course of action at this time and if patient insists on surgical intervention referral to a oncology orthopedist may be necessary. Nonweightbearing status Pain control PT/OT Time Spent With Patient Time: Total time spent is greater than 50% in coordination of care (as documented) at patient's floor/unit and/or counseling patient:
[2022-01-02] MEDS: SENNOSIDES 1 TABLET PO SCH (20:21)
[2022-01-02] MEDS: CYCLOBENZAPRINE 10 MG TABLET PO PRN (23:10)
[2022-01-03] MEDS: traMADol 50 MG TABLET PO SCH ×3 (03:51→19:59)
[2022-01-03] MEDS: HYDROcodone/APAP 5/325MG TABLET PO PRN ×3 (04:33→13:57)
[2022-01-03] MEDS: 0.9 % SODIUM CHLORIDE 10 ML SYRINGE IV SCH ×3 (05:48→20:00)
[2022-01-03 06:26] LABS: Basophils # (Auto) 0.03 K/mcL (0.00-0.30); Basophils % (Auto) 0.4 % (0.0-2.0); Eosinophils # (Auto) 0.03 K/mcL (0.00-0.70); Eosinophils % (Auto) 0.4 % (0.0-7.0); Hematocrit 33.5 % (34.1-44.9); Hemoglobin 10.7 g/dL (11.2-15.7); Lymphocytes # (Auto) 1.58 K/mcL (1.50-4.80); Lymphocytes % (Auto) 22.7 % (15.5-49.0); Mean Cell Volume 93.1 fL (80.0-100.0); Mean Corpuscular HGB Conc 31.9 g/dL (31.0-36.0); Mean Platelet Volume 9.5 fL (7.4-10.4); Monocytes # (Auto) 0.57 K/mcL (0.10-0.90); Monocytes % (Auto) 8.2 % (1.0-12.0); Neutrophils % (Auto) 68.3 % (38.0-78.0); Platelet Count 214 K/mcL (140-440); Red Cell Distribution Width 15.1 % (11.5-14.5)
[2022-01-03 06:53] LABS: ALT/SGPT 9 U/L (<40); AST/SGOT 21 U/L (<32); Albumin 3.5 gm/dL (3.2-5.2); Albumin/Globulin Ratio 1.5 (1.0-2.3); Alkaline Phosphatase 120 U/L (39-117); Bilirubin,Total 0.6 mg/dL (0.1-1.0); Blood Urea Nitrogen 17 mg/dL (8-23); Calcium 10.3 mg/dL (8.6-10.4); Carbon Dioxide 21 mmol/L (22-30); Chloride 103 mmol/L (96-108); Globulin 2.3 gm/dL (2.2-3.7); Glomerular Filtration Rate 108; Glucose 116 mg/dL (70-105)
[2022-01-03] MEDS: CYCLOBENZAPRINE 10 MG TABLET PO PRN ×2 (07:39→19:59)
[2022-01-03] MEDS: FAMOTIDINE/PF 20 MG/2 ML VIAL IV SCH ×2 (08:39→20:00)
[2022-01-03] MEDS: DOCUSATE SODIUM 100 MG CAPSULE PO SCH ×2 (08:39→19:59)
--- NOTE | 2022-01-03 10:04 | Internal Med History&Physical ---
HPI History of Present Illness Patient information: Note initiated : 01/01/22 at 10:03 pm Service Date, if different from initiated Date: []01/01/2022 Patient: Aliya Muñoz a 66 y/o F admitted on 01/01/22 for L leg pain. Chief Complaint: [] History of present illness: Ms. Muñoz is a 66 year old F This is a 66-year-old female with a history of type 2 diabetes, metastatic breast cancer with multiple brain metastasis and extensive bone metastasis with neurologic symptoms was brought to the ER following a fall and impacted her left hip Her work-up in the ER showed acute fracture of the left hip with angulation and multiple lytic metastatic lesions also lower extremity x-ray showing multiple metastatic lesions hemoglobin 12.2 platelet count within normal limits electrolytes within normal limits creatinine normal glucose slightly elevated a lkaline phosphatase elevated no source of infection identified Review of systems Constitutional: No reported fatigue no chills, no fever Eyes: no vision changes or pain Cardiovascular: no chest pain, no palpitations Respiratory: no cough or dyspnea Gastrointestinal: no nausea and stil have abdominal discomfort. Genitourinary: no dysuria or difficulty voiding Musculoskeletal: no arthralgia or myalgia Integumentary: no skin lesion or wound Neurological: no focal weakness or numbness Psychiatric: no anxiety or depression Physical exam Head: Multiple bruises and ecchymosis Eyes: normal appearance, no scleral icterus. Neck: full ROM Respiratory: no respiratory distress. Cardiovascular: normal rate and rhythm, S1, S2. GI/Abdominal: soft, nontender, no guarding. Extremities: Externally rotated pain with the movements Neurological: CN II-XII intact, intact motor, intact sensation. Psychiatric: normal mood. Skin: warm, normal color PFSH PFSH All Active Problems Closed fracture of left hip (Acute) Bone metastases (Acute) Clinical depression (Acute) Dysarthria (Acute) Stroke (Acute) Left leg weakness (Acute) Malignant neoplasm metastatic to brain (Acute) Hyperlipidemia (Chronic) Hx of right breast biopsy (Acute 09/12/14) Hx of laparoscopy (Acute) Hx of colonoscopy (Acute 09/27/14) Hx of section (Acute) Cholelithiasis (Acute) Leg pain (Acute) Metastatic carcinoma (Chronic) Weakness (Acute) History of breast cancer (Chronic) Tobacco abuse (Chronic) Diabetic neuropathy (Chronic) Bilateral leg pain (Acute) Left against medical advice (Acute) Chronic leg pain (Chronic) Abscess (Acute) Diabetes mellitus type 2 with complications, uncontrolled (Chronic) Headache (Chronic) Eczema of face (Chronic) Sacroiliac dysfunction (Chronic) Diabetes mellitus (Chronic) Osteoporosis (Chronic) Menopausal syndrome (Chronic) Colon polyp (Chronic 09/27/14) Breast cancer (Chronic 10/17/14) Type 2 diabetes mellitus (Chronic) Medical History Bilateral leg pain Colon polyp (09/27/14) HP Diabetes mellitus type 2 with complications, uncontrolled Diabetic neuropathy Eczema of face History of breast cancer HX: breast cancer 09/26/14-pant right Hyperlipidemia Hypothyroidism (acquired) Left leg weakness Leg pain Menopausal syndrome Metastatic carcinoma Osteoporosis Sacroiliac dysfunction Tobacco abuse Type 2 diabetes mellitus 10/17/14 Weakness Surgical History Breast cancer (10/17/14) 2015 - Followed by Dr. [facility], surgery, chemotherapy, radiation, refused hormone therapy Cholelithiasis Hx of section 9 pregnancies multiple cerclages to try to get to term but all failed, one born by CS because of fo cervical stenosis~SWAPNIL Hx of colonoscopy (09/27/14) HP Hx of laparoscopy Hx of right breast biopsy (09/12/14) [facility]- See path report Family History multiple Aunts Malignant neoplasm of breast multiple paternal Aunts Unknown Malignant neoplasm of colon Multiple family members not specified which ones Family history of malignant neoplasm of breast Malignant neoplasm Type 2 diabetes mellitus Father Ischemic heart disease due to coronary artery obstruction Valvular heart disease Malignant neoplasm of colon Social History marital status: occupational status: retired alcohol intake frequency: does not drink substance use type: does not use hiram/yarsani: None seatbelt use: always MEDS/ALLERGIES Home Medications and Allergies Home Medications Medication Instructions Recorded Confirmed Type glyburide 1.25 mg tablet 1.25 mg PO TID #90 tab 04/23/20 01/01/22 Rx dexamethasone 4 mg tablet 4 mg PO QDAY #30 tab 05/30/20 01/01/22 Rx (Decadron) Allergies Allergy/AdvReac Type Severity Reaction Status Date / Time morphine Allergy Unknown Unknown Verified 01/02/22 06:53 phenol Allergy Unknown Unknown Verified 01/01/22 15:34 propylene glycol Allergy Unknown Unknown Verified 01/01/22 15:34 baclofen AdvReac Mild Abdominal Verified 01/01/22 15:34 Pain bupropion [From Wellbutrin] AdvReac Mild Blisters Verified 01/01/22 15:34 exenatide microspheres AdvReac Mild Other Verified 01/01/22 15:34 [From Bydureon] liraglutide [From Victoza] AdvReac Mild Muscle Pain Verified 01/01/22 15:34 metformin AdvReac Mild Diarrhea Verified 01/01/22 15:34 Codeine Deriv Allergy Unknown Skin Uncoded 04/30/20 13:25 Reaction EXAM Constitutional Vitals: Temp Pulse Resp BP Pulse Ox 97 F 91 H 20 95/53 94 01/03/22 07:24 01/03/22 04:00 01/03/22 07:24 01/03/22 07:24 01/03/22 07:24 DATA Data Completed and Pending Labs: Labs from last 24 hours 01/03/22 01/03/22 05:23 05:23 WBC 7.0 RBC 3.60 Hgb 10.7 L Hct 33.5 L MCV 93.1 MCH 29.7 MCHC 31.9 RDW 15.1 H Plt Count 214 MPV 9.5 Neut % (Auto) 68.3 Lymph % (Auto) 22.7 [place] % (Auto) 8.2 Eos % (Auto) 0.4 Baso % (Auto) 0.4 Lymph # (Auto) 1.58 [place] # (Auto) 0.57 Eos # (Auto) 0.03 Baso # (Auto) 0.03 Absolute Neutrophils 4.75 Sodium 139 Potassium 3.9 Chloride 103 Carbon Dioxide 21 L Anion Gap 15.0 BUN 17 Creatinine 0.4 L GFR Calculation 108 Glucose 116 H Calcium 10.3 Magnesium 2.0 Total Bilirubin 0.6 AST 21 ALT 9 Alkaline Phosphatase 120 H Total Protein 5.8 L Albumin 3.5 Globulin 2.3 Albumin/Globulin Ratio 1.5 A/P Narrative Plan of Treatment: Acute femur fracture with extensive bone metastasis ER physician discussed with the orthopedic surgeon they will evaluate the patient tomorrow Pain control with tramadol and IV Dilaudid IV fluid Metastatic breast cancer Extensive brain mets and extensive bone metastasis Patient recently had a CT of the head earlier this year showing worsening of her multiple metastatic lesions She also had extensive lytic lesions anterior pelvis femur and lower extremities Not on any active treatment Type 2 diabetes Sliding scale Monitor blood glucose Intermittent behavioral disturbances probably due to brain metastasis Patient does have intermittent behavioral disturbances and memory loss During my encounter patient was alert oriented x3 CODE STATUS-DNR/DNI DVT prophylaxis-Lovenox Time Spent With Patient Time: Total time spent is greater than 50% in coordination of care (as documented) at patient's floor/unit and/or counseling patient: Total time spent with greater than 50% in coordination of care (as documented) at patient's floor/unit and/or counseling patient:: 50 - 70 minutes QUALITY VTE Deep Vein Thrombosis/Pulmonary Embolism Present on Admission: No
--- NOTE | 2022-01-03 10:07 | Internal Med Progress Note ---
SUBJECTIVE Subjective Patient information: Note initiated : 01/02/22 at 10:06 am Service Date, if different from initiated Date: [] Patient: Aliya Muñoz a 66 y/o F admitted on 01/01/22 for L leg pain. Chief Complaint: [] Interval history: This is a 66-year-old female with a history of type 2 diabetes, metastatic breast cancer with multiple brain metastasis and extensive bone metastasis with neurologic symptoms was brought to the ER following a fall and impacted her left hip Her work-up in the ER showed acute fracture of the left hip with angulation and multiple lytic metastatic lesions also lower extremity x-ray showing multiple metastatic lesions hemoglobin 12.2 platelet count within normal limits electrolytes within normal limits creatinine normal glucose slightly elevated alkaline phosphatase elevated no source of infection identified 01/[address] Ramos evaluated the patient and recommended conservative measures and he is going to talk to Dr. Dill to get a second opinion. I agree with the recommendation as the patient has multiple metastatic lytic lesions surgery itself will be complicated and recovering from surgery is unlikely and her prognosis is very poor. Review of systems Constitutional: No reported fatigue no chills, no fever Eyes: no vision changes or pain Cardiovascular: no chest pain, no palpitations Respiratory: no cough or dyspnea Gastrointestinal: no nausea and stil have abdominal discomfort. Genitourinary: no dysuria or difficulty voiding Musculoskeletal: no arthralgia or myalgia Integumentary: no skin lesion or wound Neurological: no focal weakness or numbness Psychiatric: no anxiety or depression Physical exam Head: Multiple bruises and ecchymosis Eyes: normal appearance, no scleral icterus. Neck: full ROM Respiratory: no respiratory distress. Cardiovascular: normal rate and rhythm, S1, S2. GI/Abdominal: soft, nontender, no guarding. Extremities: Externally rotated pain with the movements Neurological: CN II-XII intact, intact motor, intact sensation. Psychiatric: normal mood. Skin: warm, normal color Constitutional Vitals: Vital Signs Temp Pulse Resp BP Pulse Ox 97 F 91 H 20 95/53 94 01/03/22 07:24 01/03/22 04:00 01/03/22 07:24 01/03/22 07:24 01/03/22 07:24 Period Temp Pulse Resp BP Sys/Cuevas Pulse Ox Last 24 Hr 97 F-98.4 F 91-93 18- 95-107/50-61 91-94 Intake and Output 01/02/22 01/03/22 01/03/22 21:59 05:59 13:59 Intake Total 1000 Output Total 250 350 Balance -250 650 Weight 51.936 kg Intake & Output: Intake & Output 01/02/22 01/03/22 01/03/22 21:59 05:59 13:59 Intake Total 1000 Output Total 250 350 Balance -250 650 Weight 51.936 kg Intake: IV 1000 Sodium Chloride 0.9% 1,000 ml @ 1000 75 mls/hr IV .[id number] [facility] Rx#: [id number] Output: Urine Catheter Amount 250 350 Other: Percent of Meal Consumed NPO Nourishment/Supplement name NPO Urine Appearance Clear Clear Uretheral (Man) Clear Clear Urine Color Straw Light Ioana Uretheral (Man) Dark Yellow Dark Yellow Urine Odor Normal Uretheral (Man) Strong Normal OBJ DATA Labs CBC & Chem 7: 01/03/22 05:23 01/03/22 05:23 Labs: Abnormal Lab Results 01/03/22 01/03/22 01/02/22 05:23 05:23 06:01 Hgb 10.7 L Hct 33.5 L RDW 15.1 H Carbon Dioxide 21 L BUN Creatinine 0.4 L 0.4 L Glucose 116 H 128 H Calcium 10.7 H Alkaline Phosphatase 120 H 135 H Total Protein 5.8 L 01/02/22 01/01/22 01/01/22 06:01 18:30 18:30 Hgb Hct RDW 14.9 H 14.6 H Carbon Dioxide BUN 27 H Creatinine 0.5 L Glucose 127 H Calcium 10.9 H Alkaline Phosphatase 142 H Total Protein Meds: Medications Acetaminophen (Acetaminophen 325 Mg Tablet) 650 mg PO Q6HP PRN; Protocol PRN Reason: Per Pain Protocol/Fever > 101 Hydrocodone Bitart/Acetaminophen (Hydrocodone/Apap 5/325mg Tablet) 1 tab PO Q4HP PRN; Protocol PRN Reason: Per Pain Protocol Last Admin: 01/03/22 08:38 Dose: 1 tab Documented by: Al Hydrox/Mg Hydrox/Simethicone (Mag Hydrox/Al Hydrox/Simeth 30 Ml Oral.Susp) 30 ml PO Q6HP PRN PRN Reason: Dyspepsia Albuterol Sulfate (Albuterol Sulfate 2.5 Mg/3 Ml Nebulizer) 2.5 mg NEB Q2HP PRN PRN Reason: Shortness Of Breath Albuterol/Ipratropium (Ipratropium/Albuterol 3 Ml Ampul.Neb) 3 ml NEB Q4HRT PRN PRN Reason: Wheezing Bisacodyl (Bisacodyl 10 Mg Supp.Rect) 10 mg MD Q2-3DAYS PRN PRN Reason: Constipation Calcium Carbonate/Glycine (Calcium Carbonate 500 Mg Tab.Chew) 1,000 mg CHEWED Q4HP PRN PRN Reason: Dyspepsia Cyclobenzaprine HCl (Cyclobenzaprine 10 Mg Tablet) 5 mg PO Q8HP PRN PRN Reason: Muscle Spasm Last Admin: 01/03/22 07:39 Dose: 5 mg Documented by: Docusate Sodium (Docusate Sodium 100 Mg Capsule) 100 mg PO BID [facility] Last Admin: 01/03/22 08:39 Dose: 100 mg Documented by: Enoxaparin Sodium (Enoxaparin 30 Mg/0.3 Ml Syringe) 30 mg SQ DAILY [facility] Famotidine (Famotidine/Pf 20 Mg/2 Ml Vial) 20 mg IV Q12 [facility] Last Admin: 01/03/22 08:39 Dose: 20 mg Documented by: Hydralazine HCl (Hydralazine 20 Mg/Ml Vial) 10 mg IV Q4-6HP PRN PRN Reason: Hypertension Hydromorphone HCl (Hydromorphone 0.5 Mg/0.5 Ml Syringe) 0.5 mg IV Q2HP PRN; Protocol PRN Reason: Per Pain Protocol Last Admin: 01/02/22 19:25 Dose: 0.5 mg Documented by: Magnesium Hydroxide (Magnesium Hydroxide 30 Ml Oral.Susp) 30 ml PO DAILYP PRN PRN Reason: Constipation Naloxone HCl (Naloxone Hcl 0.4 Mg/Ml Vial) 0.1 mg IV Q2MIN PRN PRN Reason: Opiate Reversal Ondansetron HCl (Ondansetron 4 Mg/2 Ml Vial) 4 mg IV Q6HP PRN PRN Reason: Nausea And Vomiting Ondansetron HCl (Ondansetron 4 Mg Odt Tablet) 4 mg SL Q6HP PRN PRN Reason: Nausea And Vomiting Prochlorperazine (Prochlorperazine 10 Mg/2 Ml Vial) 5 mg IV Q4HP PRN PRN Reason: Nausea And Vomiting Quetiapine Fumarate (Quetiapine 25 Mg Tablet) 12.5 mg PO HSP PRN PRN Reason: insomnia Last Admin: 01/02/22 20:27 Dose: 12.5 mg Documented by: Senna (Sennosides 1 Tablet) 2 tab PO HS FRED Last Admin: 01/02/22 20:21 Dose: Not Given Documented by: Sodium Chloride (0.9 % Sodium Chloride 10 Ml Syringe) 10 ml IV Q8 FRED Last Admin: 01/03/22 05:48 Dose: 10 ml Documented by: Tramadol HCl (Tramadol 50 Mg Tablet) 50 mg PO Q8H FRED; Protocol Last Admin: 01/03/22 03:51 Dose: 50 mg Documented by: A/P Narrative Plan of Treatment: Acute femur fracture with extensive bone metastasis Dr. Ramos and his PA evaluated the patient and recommended conservative measures pain control with the multiple lytic lesions and poor prognosis. He is going to talk to Dr. Dill to get a second opinion Pain control with tramadol and IV Dilaudid IV fluid We will discussed with the patient about nonsurgical options and pain control and hospice Metastatic breast cancer Extensive brain mets and extensive bone metastasis Patient recently had a CT of the head earlier this year showing worsening of her multiple metastatic lesions She also had extensive lytic lesions anterior pelvis femur and lower extremities Not on any active treatment Type 2 diabetes Sliding scale Monitor blood glucose Intermittent behavioral disturbances probably due to brain metastasis Patient does have intermittent behavioral disturbances and memory loss During my encounter patient was alert oriented x3 CODE STATUS-DNR/DNI DVT prophylaxis-Lovenox Time Spent With Patient Time: Total time spent is greater than 50% in coordination of care (as documented) at patient's floor/unit and/or counseling patient: QUALITY VTE Deep Vein Thrombosis/Pulmonary Embolism Present on Admission: No
--- NOTE | 2022-01-03 10:16 | Internal Med Progress Note ---
SUBJECTIVE Subjective Patient information: Note initiated : 01/03/22 at 10:15 am Service Date, if different from initiated Date: [] Patient: Aliya Muñoz a 66 y/o F admitted on 01/01/22 for L leg pain. Chief Complaint: [] Interval history: This is a 66-year-old female with a history of type 2 diabetes, metastatic breast cancer with multiple brain metastasis and extensive bone metastasis with neurologic symptoms was brought to the ER following a fall and impacted her left hip Her work-up in the ER showed acute fracture of the left hip with angulation and multiple lytic metastatic lesions also lower extremity x-ray showing multiple metastatic lesions hemoglobin 12.2 platelet count within normal limits electrolytes within normal limits creatinine normal glucose slightly elevated alkaline phosphatase elevated no source of infection identified 01/[address] Ramos evaluated the patient and recommended conservative measures and he is going to talk to Dr. Dill to get a second opinion. I agree with the recommendation as the patient has multiple metastatic lytic lesions surgery itself will be complicated and recovering from surgery is unlikely and her prognosis is very poor. 01/03 Patient continued having pain She is not a surgical candidate according to Dr. Guido and Aniyah Patient has multiple extensive bone metastatic lesions and brain metastasis with intermittent behavioral changes Patient does not have any family to make decisions for her Patient is thinking about options according to the orthopedic surgeon if she want to consider surgery then she needs to go to a tertiary care level Based on my assessment patient is not a surgical candidate due to multiple lytic lesions and intermittent behavioral issues and recovering from surgery is unlikely and her prognosis is very poor Review of systems Constitutional: No reported fatigue no chills, no fever Eyes: no vision changes or pain Cardiovascular: no chest pain, no palpitations Respiratory: no cough or dyspnea Gastrointestinal: no nausea and stil have abdominal discomfort. Genitourinary: no dysuria or difficulty voiding Musculoskeletal: no arthralgia or myalgia Integumentary: no skin lesion or wound Neurological: no focal weakness or numbness Psychiatric: no anxiety or depression Physical exam Head: Multiple bruises and ecchymosis Eyes: normal appearance, no scleral icterus. Neck: full ROM Respiratory: no respiratory distress. Cardiovascular: normal rate and rhythm, S1, S2. GI/Abdominal: soft, nontender, no guarding. Extremities: Externally rotated pain with the movements Neurological intermittent pleasant confusion otherwise no new focal deficit Psychiatric: Intermittent pleasant confusion Skin: warm, normal color Constitutional Vitals: Vital Signs Temp Pulse Resp BP Pulse Ox 97 F 91 H 20 95/53 94 01/03/22 07:24 01/03/22 04:00 01/03/22 07:24 01/03/22 07:24 01/03/22 07:24 Period Temp Pulse Resp BP Sys/Cuevas Pulse Ox Last 24 Hr 97 F-98.4 F 91-93 18-26 95-107/50-61 91-94 Intake and Output 01/02/22 01/03/22 01/03/22 21:59 05:59 13:59 Intake Total 1000 Output Total 250 350 Balance -250 650 Weight 51.936 kg Intake & Output: Intake & Output 01/02/22 01/03/22 01/03/22 21:59 05:59 13:59 Intake Total 1000 Output Total 250 350 Balance -250 650 Weight 51.936 kg Intake: IV 1000 Sodium Chloride 0.9% 1,000 ml @ 1000 75 mls/hr IV .[id number] [facility] Rx#: [id number] Output: Urine Catheter Amount 250 350 Other: Percent of Meal Consumed NPO Nourishment/Supplement name NPO Urine Appearance Clear Clear Uretheral (Man) Clear Clear Urine Color Straw Light Ioana Uretheral (Man) Dark Yellow Dark Yellow Urine Odor Normal Uretheral (Man) Strong Normal OBJ DATA Labs CBC & Chem 7: 01/03/22 05:23 01/03/22 05:23 Labs: Abnormal Lab Results 01/03/22 01/03/22 01/02/22 05:23 05:23 06:01 Hgb 10.7 L Hct 33.5 L RDW 15.1 H Carbon Dioxide 21 L BUN Creatinine 0.4 L 0.4 L Glucose 116 H 128 H Calcium 10.7 H Alkaline Phosphatase 120 H 135 H Total Protein 5.8 L 01/02/22 01/01/22 01/01/22 06:01 18:30 18:30 Hgb Hct RDW 14.9 H 14.6 H Carbon Dioxide BUN 27 H Creatinine 0.5 L Glucose 127 H Calcium 10.9 H Alkaline Phosphatase 142 H Total Protein Meds: Medications Acetaminophen (Acetaminophen 325 Mg Tablet) 650 mg PO Q6HP PRN; Protocol PRN Reason: Per Pain Protocol/Fever > 101 Hydrocodone Bitart/Acetaminophen (Hydrocodone/Apap 5/325mg Tablet) 1 tab PO Q4HP PRN; Protocol PRN Reason: Per Pain Protocol Last Admin: 01/03/22 08:38 Dose: 1 tab Documented by: Al Hydrox/Mg Hydrox/Simethicone (Mag Hydrox/Al Hydrox/Simeth 30 Ml Oral.Susp) 30 ml PO Q6HP PRN PRN Reason: Dyspepsia Albuterol Sulfate (Albuterol Sulfate 2.5 Mg/3 Ml Nebulizer) 2.5 mg NEB Q2HP PRN PRN Reason: Shortness Of Breath Albuterol/Ipratropium (Ipratropium/Albuterol 3 Ml Ampul.Neb) 3 ml NEB Q4HRT PRN PRN Reason: Wheezing Bisacodyl (Bisacodyl 10 Mg Supp.Rect) 10 mg OR Q2-3DAYS PRN PRN Reason: Constipation Calcium Carbonate/Glycine (Calcium Carbonate 500 Mg Tab.Chew) 1,000 mg CHEWED Q4HP PRN PRN Reason: Dyspepsia Cyclobenzaprine HCl (Cyclobenzaprine 10 Mg Tablet) 5 mg PO Q8HP PRN PRN Reason: Muscle Spasm Last Admin: 01/03/22 07:39 Dose: 5 mg Documented by: Docusate Sodium (Docusate Sodium 100 Mg Capsule) 100 mg PO BID [facility] Last Admin: 01/03/22 08:39 Dose: 100 mg Documented by: Enoxaparin Sodium (Enoxaparin 30 Mg/0.3 Ml Syringe) 30 mg SQ DAILY [facility] Famotidine (Famotidine/Pf 20 Mg/2 Ml Vial) 20 mg IV Q12 [facility] Last Admin: 01/03/22 08:39 Dose: 20 mg Documented by: Hydralazine HCl (Hydralazine 20 Mg/Ml Vial) 10 mg IV Q4-6HP PRN PRN Reason: Hypertension Hydromorphone HCl (Hydromorphone 0.5 Mg/0.5 Ml Syringe) 0.5 mg IV Q2HP PRN; Protocol PRN Reason: Per Pain Protocol Last Admin: 01/02/22 19:25 Dose: 0.5 mg Documented by: Magnesium Hydroxide (Magnesium Hydroxide 30 Ml Oral.Susp) 30 ml PO DAILYP PRN PRN Reason: Constipation Naloxone HCl (Naloxone Hcl 0.4 Mg/Ml Vial) 0.1 mg IV Q2MIN PRN PRN Reason: Opiate Reversal Ondansetron HCl (Ondansetron 4 Mg/2 Ml Vial) 4 mg IV Q6HP PRN PRN Reason: Nausea And Vomiting Ondansetron HCl (Ondansetron 4 Mg Odt Tablet) 4 mg SL Q6HP PRN PRN Reason: Nausea And Vomiting Prochlorperazine (Prochlorperazine 10 Mg/2 Ml Vial) 5 mg IV Q4HP PRN PRN Reason: Nausea And Vomiting Quetiapine Fumarate (Quetiapine 25 Mg Tablet) 12.5 mg PO HSP PRN PRN Reason: insomnia Last Admin: 01/02/22 20:27 Dose: 12.5 mg Documented by: Senna (Sennosides 1 Tablet) 2 tab PO HS [facility] Last Admin: 01/02/22 20:21 Dose: Not Given Documented by: Sodium Chloride (0.9 % Sodium Chloride 10 Ml Syringe) 10 ml IV Q8 [facility] Last Admin: 01/03/22 05:48 Dose: 10 ml Documented by: Tramadol HCl (Tramadol 50 Mg Tablet) 50 mg PO Q8H [facility]; Protocol Last Admin: 01/03/22 03:51 Dose: 50 mg Documented by: A/P Narrative Plan of Treatment: Acute femur fracture with extensive bone metastasis Dr. Ramos and his PA evaluated the patient and recommended conservative measures pain control with the multiple lytic lesions and poor prognosis. Discussed with Dr. Dill and he agrees she is not a surgical candidate Pain control with tramadol and IV Dilaudid IV fluid We will discussed with the patient about nonsurgical options and pain control and hospice Metastatic breast cancer Extensive brain mets and extensive bone metastasis Patient recently had a CT of the head earlier this year showing worsening of her multiple metastatic lesions She also had extensive lytic lesions anterior pelvis femur and lower extremities Not on any active treatment Type 2 diabetes Sliding scale Monitor blood glucose Intermittent behavioral disturbances probably due to brain metastasis Patient does have intermittent behavioral disturbances and memory loss CODE STATUS-DNR/DNI DVT prophylaxis-Lovenox Time Spent With Patient Time: Total time spent is greater than 50% in coordination of care (as documented) at patient's floor/unit and/or counseling patient: QUALITY VTE Deep Vein Thrombosis/Pulmonary Embolism Present on Admission: No
[2022-01-03] MEDS: HYDROmorphone 0.5 MG/0.5 ML SYRINGE IV PRN ×2 (14:38→21:18)
--- NOTE | 2022-01-03 15:33 | Cat Scan Report ---
CLINICAL INFORMATION: Widely disseminated metastatic breast cancer. Left leg pain COMPARISON: Whole body CT PET scan from 04/28/2016 TECHNIQUE: 0.625 mm helical slices were obtained from the mid L4 through the subtrochanteric regions. Following reconstruction, 2.5 mm sagittal, coronal and axial reformations were processed. The exam was reviewed in bone and soft tissue windows. The exam was performed using radiation dose optimization techniques including, but not limited to, automated exposure control, adjustment of mA and/or kV according to patient size and use of iterative reconstruction technique. FINDINGS: A multitude of osteolytic metastases are widely disseminated throughout the pelvis, proximal femurs and visualized lower lumbar spine: L4-L5. This has resulted in permeative "moth eaten "appearance to all visualized bones. There is an acute basicervical pathologic fracture through the left hip with associated coxa varied angulation. Moderate L4 compression fracture is age indeterminate. Man catheter is properly positioned within the urinary bladder. There is a 5 mm stone right bladder base. Small amount of free fluid on the deep true pelvis. Large amount stool is seen within the visualized colon and rectum. Small bowel is normal. Retroflexed uterus is normal in size: 8 x 4 cm. IMPRESSION: 1. Widely disseminated osteolytic metastases throughout the pelvis proximal femurs visualized lower lumbar vertebral bodies L4 and L5. These results in subtotal of lytic destruction of all visualized osseous structures. A pathologic basicervical fracture through the left hip resulting coxa varied angulation. This is likely acute 2. 5 mm stone in the right urinary bladder. 3. Large amount of stool seen within the visualized colon and rectum. Suspect fecal impaction evident within the rectum. Interpreted and Authenticated by: Job Arevalo 01/03/22
[2022-01-03] MEDS: SENNOSIDES 1 TABLET PO SCH (19:59)
[2022-01-04] MEDS: HYDROcodone/APAP 5/325MG TABLET PO PRN ×4 (01:56→22:24)
[2022-01-04] MEDS: traMADol 50 MG TABLET PO SCH ×3 (04:28→20:19)
[2022-01-04] MEDS: HYDROmorphone 0.5 MG/0.5 ML SYRINGE IV PRN (04:44)
[2022-01-04] MEDS: 0.9 % SODIUM CHLORIDE 10 ML SYRINGE IV SCH ×3 (04:44→20:21)
[2022-01-04 06:38] LABS: Basophils # (Auto) 0.04 K/mcL (0.00-0.30); Basophils % (Auto) 0.5 % (0.0-2.0); Eosinophils # (Auto) 0.03 K/mcL (0.00-0.70); Eosinophils % (Auto) 0.3 % (0.0-7.0); Hematocrit 35.9 % (34.1-44.9); Hemoglobin 11.6 g/dL (11.2-15.7); Lymphocytes # (Auto) 2.01 K/mcL (1.50-4.80); Lymphocytes % (Auto) 22.9 % (15.5-49.0); Mean Cell Volume 93.2 fL (80.0-100.0); Mean Corpuscular HGB Conc 32.3 g/dL (31.0-36.0); Mean Platelet Volume 9.5 fL (7.4-10.4); Monocytes # (Auto) 0.58 K/mcL (0.10-0.90); Monocytes % (Auto) 6.6 % (1.0-12.0); Neutrophils % (Auto) 69.7 % (38.0-78.0); Platelet Count 232 K/mcL (140-440); RBC 3.85 M/mcL (3.59-5.38); Red Cell Distribution Width 15.1 % (11.5-14.5); WBC 8.8 K/mcL (4.5-11.0)
[2022-01-04 07:01] LABS: ALT/SGPT 8 U/L (<40); AST/SGOT 24 U/L (<32); Albumin 3.4 gm/dL (3.2-5.2); Albumin/Globulin Ratio 1.3 (1.0-2.3); Alkaline Phosphatase 125 U/L (39-117); Bilirubin,Total 0.8 mg/dL (0.1-1.0); Blood Urea Nitrogen 14 mg/dL (8-23); Calcium 10.6 mg/dL (8.6-10.4); Carbon Dioxide 18 mmol/L (22-30); Chloride 98 mmol/L (96-108); Globulin 2.7 gm/dL (2.2-3.7); Glomerular Filtration Rate 108; Glucose 105 mg/dL (70-105)
[2022-01-04] MEDS: CYCLOBENZAPRINE 10 MG TABLET PO PRN (07:03)
[2022-01-04] MEDS: FAMOTIDINE/PF 20 MG/2 ML VIAL IV SCH ×2 (08:50→20:21)
[2022-01-04] MEDS: ENOXAPARIN 30 MG/0.3 ML SYRINGE SQ SCH (08:50)
[2022-01-04] MEDS: DOCUSATE SODIUM 100 MG CAPSULE PO SCH ×2 (08:50→20:20)
--- NOTE | 2022-01-04 13:58 | Internal Med Progress Note ---
SUBJECTIVE Subjective Patient information: Note initiated : 01/04/22 at 1:58 pm Service Date, if different from initiated Date: [] Patient: Aliya Muñoz a 66 y/o F admitted on 01/01/22 for L leg pain. Chief Complaint: [] Interval history: 66-year-old female with a history of type 2 diabetes, metastatic breast cancer with multiple brain metastasis and extensive bone metastasis with neurologic symptoms was brought to the ER following a fall and impacted her left hip Her work-up in the ER showed acute fracture of the left hip with angulation and multiple lytic metastatic lesions also lower extremity x-ray showing multiple metastatic lesions hemoglobin 12.2 platelet count within normal limits electrolytes within normal limits creatinine normal glucose slightly elevated alkaline phosphatase elevated no source of infection identified 01/[address] Ramos evaluated the patient and recommended conservative measures and he is going to talk to Dr. Dill to get a second opinion. I agree with the recommendation as the patient has multiple metastatic lytic lesions surgery itself will be complicated and recovering from surgery is unlikely and her prognosis is very poor. 01/03 Patient continued having pain She is not a surgical candidate according to Dr. Guido and Aniyah Patient has multiple extensive bone metastatic lesions and brain metastasis with intermittent behavioral changes Patient does not have any family to make decisions for her Patient is thinking about options according to the orthopedic surgeon if she want to consider surgery then she needs to go to a tertiary care level Based on my assessment patient is not a surgical candidate due to multiple lytic lesions and intermittent behavioral issues and recovering from surgery is unlikely and her prognosis is very poor 01/04 Discussed with the patient and her POA in the room They want to explore surgical options for her according to the POA and the patient she has been diagnosed with terminal cancer 3 years ago but she is still alive and active so they want to see whether patient can get surgery and be active Discussed with the [facility] transfer team and they do not have any oncology orthopedic surgeon until Wednesday the recommended discussing with the [facility] call initiated discussed with the transfer center waiting for the call back Review of systems 10 point review of system unremarkable other than continued pain and probable constipation next Physical exam Head: Multiple bruises and ecchymosis Eyes: normal appearance, no scleral icterus. Neck: full ROM Respiratory: no respiratory distress. Cardiovascular: normal rate and rhythm, S1, S2. GI/Abdominal: No significant tenderness Extremities: Externally rotated pain with the movements Neurological intermittent pleasant confusion otherwise no new focal deficit Psychiatric: Intermittent pleasant confusion Skin: warm, normal color Constitutional Vitals: Vital Signs Temp Pulse Resp BP Pulse Ox 97.4 F 99 H 16 117/65 92 01/04/22 11:36 01/04/22 11:36 01/04/22 11:36 01/04/22 11:36 01/04/22 11:36 Period Temp Pulse Resp BP Sys/Cuevas Pulse Ox Last 24 Hr 97.4 F-99.3 F 94-99 16-18 109-140/60-68 92-95 Intake and Output 01/03/22 01/04/22 01/04/22 21:59 05:59 13:59 Intake Total 400 400 Output Total 250 201 Balance 150 199 Weight 52.027 kg Intake & Output: Intake & Output 01/03/22 01/04/22 01/04/22 21:59 05:59 13:59 Intake Total 400 400 Output Total 250 201 Balance 150 199 Weight 52.027 kg Intake: Oral 400 400 Output: Urine Catheter Amount 250 200 # of times incontinent of urine 1 Other: Urine Appearance Clear Clear Uretheral (Man) Clear Urine Color Light Ioana Dark Yellow Uretheral (Man) Dark Yellow Urine Odor Normal Strong OBJ DATA Labs CBC & Chem 7: 01/04/22 05:10 01/04/22 05:10 Labs: Abnormal Lab Results 01/04/22 01/04/22 01/03/22 05:10 05:10 05:23 Hgb Hct RDW 15.1 H Carbon Dioxide 18 L 21 L Anion Gap 19.0 H BUN Creatinine 0.4 L 0.4 L Glucose 116 H Calcium 10.6 H Alkaline Phosphatase 125 H 120 H Total Protein 5.8 L 01/03/22 01/02/22 01/02/22 05:23 06:01 06:01 Hgb 10.7 L Hct 33.5 L RDW 15.1 H 14.9 H Carbon Dioxide Anion Gap BUN Creatinine 0.4 L Glucose 128 H Calcium 10.7 H Alkaline Phosphatase 135 H Total Protein 01/01/22 01/01/22 18:30 18:30 Hgb Hct RDW 14.6 H Carbon Dioxide Anion Gap BUN 27 H Creatinine 0.5 L Glucose 127 H Calcium 10.9 H Alkaline Phosphatase 142 H Total Protein Meds: Medications Acetaminophen (Acetaminophen 325 Mg Tablet) 650 mg PO Q6HP PRN; Protocol PRN Reason: Per Pain Protocol/Fever > 101 Hydrocodone Bitart/Acetaminophen (Hydrocodone/Apap 5/325mg Tablet) 1 tab PO Q4HP PRN; Protocol PRN Reason: Per Pain Protocol Last Admin: 01/04/22 11:58 Dose: 1 tab Documented by: Al Hydrox/Mg Hydrox/Simethicone (Mag Hydrox/Al Hydrox/Simeth 30 Ml Oral.Susp) 30 ml PO Q6HP PRN PRN Reason: Dyspepsia Albuterol Sulfate (Albuterol Sulfate 2.5 Mg/3 Ml Nebulizer) 2.5 mg NEB Q2HP PRN PRN Reason: Shortness Of Breath Albuterol/Ipratropium (Ipratropium/Albuterol 3 Ml Ampul.Neb) 3 ml NEB Q4HRT PRN PRN Reason: Wheezing Bisacodyl (Bisacodyl 10 Mg Supp.Rect) 10 mg NC Q2-3DAYS PRN PRN Reason: Constipation Calcium Carbonate/Glycine (Calcium Carbonate 500 Mg Tab.Chew) 1,000 mg CHEWED Q4HP PRN PRN Reason: Dyspepsia Cyclobenzaprine HCl (Cyclobenzaprine 10 Mg Tablet) 5 mg PO Q8HP PRN PRN Reason: Muscle Spasm Last Admin: 01/04/22 07:03 Dose: 5 mg Documented by: Docusate Sodium (Docusate Sodium 100 Mg Capsule) 100 mg PO BID [facility] Last Admin: 01/04/22 08:50 Dose: 100 mg Documented by: Enoxaparin Sodium (Enoxaparin 30 Mg/0.3 Ml Syringe) 30 mg SQ DAILY [facility] Last Admin: 01/04/22 08:50 Dose: 30 mg Documented by: Famotidine (Famotidine/Pf 20 Mg/2 Ml Vial) 20 mg IV Q12 [facility] Last Admin: 01/04/22 08:50 Dose: Not Given Documented by: Hydralazine HCl (Hydralazine 20 Mg/Ml Vial) 10 mg IV Q4-6HP PRN PRN Reason: Hypertension Hydromorphone HCl (Hydromorphone 0.5 Mg/0.5 Ml Syringe) 0.5 mg IV Q2HP PRN; Protocol PRN Reason: Per Pain Protocol Last Admin: 01/04/22 04:44 Dose: 0.5 mg Documented by: Lactulose (Lactulose 20 Gm/30 Ml Oral.Ann) 30 gm PO TID [facility] Magnesium Hydroxide (Magnesium Hydroxide 30 Ml Oral.Susp) 30 ml PO DAILYP PRN PRN Reason: Constipation Naloxone HCl (Naloxone Hcl 0.4 Mg/Ml Vial) 0.1 mg IV Q2MIN PRN PRN Reason: Opiate Reversal Ondansetron HCl (Ondansetron 4 Mg/2 Ml Vial) 4 mg IV Q6HP PRN PRN Reason: Nausea And Vomiting Ondansetron HCl (Ondansetron 4 Mg Odt Tablet) 4 mg SL Q6HP PRN PRN Reason: Nausea And Vomiting Prochlorperazine (Prochlorperazine 10 Mg/2 Ml Vial) 5 mg IV Q4HP PRN PRN Reason: Nausea And Vomiting Quetiapine Fumarate (Quetiapine 25 Mg Tablet) 12.5 mg PO HSP PRN PRN Reason: insomnia Last Admin: 01/02/22 20:27 Dose: 12.5 mg Documented by: Senna (Sennosides 1 Tablet) 2 tab PO HS [facility] Last Admin: 01/03/22 19:59 Dose: 2 tab Documented by: Sodium Chloride (0.9 % Sodium Chloride 10 Ml Syringe) 10 ml IV Q8 [facility] Last Admin: 01/04/22 04:44 Dose: 10 ml Documented by: Tramadol HCl (Tramadol 50 Mg Tablet) 50 mg PO Q8H [facility]; Protocol Last Admin: 01/04/22 11:57 Dose: 50 mg Documented by: A/P Narrative Plan of Treatment: Acute femur fracture with extensive bone metastasis Dr. Ramos and his PA evaluated the patient and recommended conservative measures pain control with the multiple lytic lesions and poor prognosis. Discussed with Dr. Dill and he agrees she is not a surgical candidate Pain control with tramadol and IV Dilaudid IV fluid discussed with the patient about nonsurgical options and pain control and hospice Discussed with the patient and POA in the room and according to both patient has been diagnosed with terminal cancer 3 years ago and she is still alive and be active so they want to explore surgical options. Discussed with the [facility], orthopedic surgeon reviewed the images and recommended this to be done by an oncology orthopedic surgeon and they do not have an oncology orthopedic surgeon until Wednesday and recommended discussing with [facility] Discussed with the transfer center at [facility] and waiting for the call back from the surgeon Metastatic breast cancer Extensive brain mets and extensive bone metastasis Patient recently had a CT of the head earlier this year showing worsening of her multiple metastatic lesions She also had extensive lytic lesions anterior pelvis femur and lower extremities Not on any active treatment Type 2 diabetes Sliding scale Monitor blood glucose Intermittent behavioral disturbances probably due to brain metastasis Patient does have intermittent behavioral disturbances and memory loss CODE STATUS-DNR/DNI DVT prophylaxis-Lovenox Time Spent With Patient Time: Total time spent is greater than 50% in coordination of care (as documented) at patient's floor/unit and/or counseling patient: QUALITY VTE Deep Vein Thrombosis/Pulmonary Embolism Present on Admission: No
[2022-01-04] MEDS: LACTULOSE 20 GM/30 ML ORAL.SOL PO SCH ×2 (15:37→20:19)
[2022-01-04 16:54] LABS: Appearance,Urine CLOUDY (Clear); Bilirubin,Urine Negative (Negative); Color,Urine Yellow; Culture Indicated,Urine yes; Glucose,Urine (UA) Negative (Negative); Ketones,Urine 80 mg/dL (Negative); Leukocyte Esterase,Urine 75 /uL (Negative); Mucus,Urine FEW /hpf; Nitrate,Urine Negative (Negative); Protein,Urine 100 mg/dL (Negative); Specific Gravity,Urine 1.023 (1.000-1.035); Urine Blood >=1.0 mg/dL (Negative); Urine RBC > 182 /hpf (0-1); Urine Squamous Epithelial Cell 0 /hpf (0-4); Urine WBC > 182 /hpf (0-4); Urobilinogen,Urine Negative
[2022-01-04] MEDS: SENNOSIDES 1 TABLET PO SCH (20:20)
[2022-01-05] MEDS: traMADol 50 MG TABLET PO SCH ×3 (04:02→20:00)
[2022-01-05] MEDS: 0.9 % SODIUM CHLORIDE 10 ML SYRINGE IV SCH ×3 (04:02→21:22)
[2022-01-05 06:54] LABS: Basophils # (Auto) 0.03 K/mcL (0.00-0.30); Basophils % (Auto) 0.4 % (0.0-2.0); Eosinophils # (Auto) 0.04 K/mcL (0.00-0.70); Eosinophils % (Auto) 0.6 % (0.0-7.0); Hemoglobin 11.3 g/dL (11.2-15.7); Lymphocytes % (Auto) 19.3 % (15.5-49.0); Mean Cell Volume 90.4 fL (80.0-100.0); Mean Corpuscular HGB Conc 33.2 g/dL (31.0-36.0); Mean Platelet Volume 9.4 fL (7.4-10.4); Monocytes # (Auto) 0.62 K/mcL (0.10-0.90); Monocytes % (Auto) 8.5 % (1.0-12.0); Neutrophils % (Auto) 71.2 % (38.0-78.0); Platelet Count 233 K/mcL (140-440); RBC 3.76 M/mcL (3.59-5.38); Red Cell Distribution Width 14.8 % (11.5-14.5); WBC 7.3 K/mcL (4.5-11.0)
[2022-01-05 07:36] LABS: ALT/SGPT 7 U/L (<40); AST/SGOT 21 U/L (<32); Albumin 3.4 gm/dL (3.2-5.2); Albumin/Globulin Ratio 1.3 (1.0-2.3); Alkaline Phosphatase 124 U/L (39-117); Bilirubin,Total 0.5 mg/dL (0.1-1.0); Blood Urea Nitrogen 10 mg/dL (8-23); Calcium 10.8 mg/dL (8.6-10.4); Carbon Dioxide 20 mmol/L (22-30); Chloride 103 mmol/L (96-108); Globulin 2.6 gm/dL (2.2-3.7); Glomerular Filtration Rate 100; Glucose 113 mg/dL (70-105)
[2022-01-05] MEDS: HYDROcodone/APAP 5/325MG TABLET PO PRN ×4 (08:31→22:48)
[2022-01-05] MEDS: DOCUSATE SODIUM 100 MG CAPSULE PO SCH ×2 (08:32→20:05)
[2022-01-05] MEDS: LACTULOSE 20 GM/30 ML ORAL.SOL PO SCH ×3 (08:32→20:32)
[2022-01-05] MEDS: ENOXAPARIN 30 MG/0.3 ML SYRINGE SQ SCH (08:32)
[2022-01-05] MEDS ORDERED: cefTRIAXone 2 GM in DEXTROSE 5% IN WATER 50 ML IV SCH (09:00)
[2022-01-05] MEDS ORDERED: fentaNYL 25 MCG PATCH TOPICAL SCH (10:00)
--- NOTE | 2022-01-05 12:09 | Internal Med Progress Note ---
SUBJECTIVE Subjective Patient information: Note initiated : 01/05/22 at 12:08 pm Service Date, if different from initiated Date: [] Patient: Aliya Muñoz 66 y/o F admitted on 01/01/22 for L leg pain. Chief Complaint: [] Interval history: 66-year-old female with a history of type 2 diabetes, metastatic breast cancer with multiple brain metastasis and extensive bone metastasis with neurologic symptoms was brought to the ER following a fall and impacted her left hip Her work-up in the ER showed acute fracture of the left hip with angulation and multiple lytic metastatic lesions also lower extremity x-ray showing multiple metastatic lesions hemoglobin 12.2 platelet count within normal limits electrolytes within normal limits creatinine normal glucose slightly elevated alkaline phosphatase elevated no source of infection identified 01/[address] Ramos evaluated the patient and recommended conservative measures and he is going to talk to Dr. Dill to get a second opinion. I agree with the recommendation as the patient has multiple metastatic lytic lesions surgery itself will be complicated and recovering from surgery is unlikely and her prognosis is very poor. 01/03 Patient continued having pain She is not a surgical candidate according to Dr. Guido and Aniyah Patient has multiple extensive bone metastatic lesions and brain metastasis with intermittent behavioral changes Patient does not have any family to make decisions for her Patient is thinking about options according to the orthopedic surgeon if she want to consider surgery then she needs to go to a tertiary care level Based on my assessment patient is not a surgical candidate due to multiple lytic lesions and intermittent behavioral issues and recovering from surgery is unlikely and her prognosis is very poor 01/04 Discussed with the patient and her POA in the room They want to explore surgical options for her according to the POA and the patient she has been diagnosed with terminal cancer 3 years ago but she is still alive and active so they want to see whether patient can get surgery and be active Discussed with the [facility] transfer team and they do not have any oncology orthopedic surgeon until Wednesday the recommended discussing with the [facility] call initiated discussed with the transfer center waiting for the call back 01/04 Discussed with orthopedic surgeon Dr. Katz at the [facility] and he called back this morning after discussing with 2 of the oncology orthopedic surgeon Dr. Cao. They did not recommend any corrective surgical procedure with her extensive metastasis they recommend palliative care and pain management and conservative measures only surgical option in her case is a resection arthroplasty of the femur head for pain control Review of systems 10 point review of system unremarkable other than continued pain Physical exam Head: Multiple bruises and ecchymosis Eyes: normal appearance, no scleral icterus. Neck: full ROM Respiratory: no respiratory distress. Cardiovascular: normal rate and rhythm, S1, S2. GI/Abdominal: No significant tenderness Extremities: Externally rotated pain with the movements Neurological intermittent pleasant confusion otherwise no new focal deficit Psychiatric: Intermittent pleasant confusion Skin: warm, normal color Constitutional Vitals: Vital Signs Temp Pulse Resp BP Pulse Ox 98.6 F 102 H 20 103/62 92 01/05/22 08:00 01/05/22 08:00 01/05/22 08:00 01/05/22 08:00 01/05/22 08:00 Period Temp Pulse Resp BP Sys/Cuevas Pulse Ox Last 24 Hr 97.9 F-98.6 F 96-113 16-20 103-113/56-62 92-96 Intake and Output 01/04/22 01/05/22 01/05/22 21:59 05:59 13:59 Intake Total 400 120 Output Total 500 350 Balance -100 -230 Weight 56.331 kg Intake & Output: Intake & Output 01/04/22 01/05/22 01/05/22 21:59 05:59 13:59 Intake Total 400 120 Output Total 500 350 Balance -100 -230 Weight 56.331 kg Intake: Oral 400 120 Output: Urine Catheter Amount 500 350 Other: Urine Appearance Clear Uretheral (Man) Clear Urine Color Dark Yellow Dark Yellow Brown Uretheral (Man) Bright Yellow Tea Colored Urine Odor Foul Normal Stool Size Moderate Stool Color Brown Stool Consistency Soft Formed # Voids 2 # Bowel Movements 1 # of times incontinent of 1 Bowels OBJ DATA Labs CBC & Chem 7: 01/05/22 05:33 01/05/22 05:33 Labs: Abnormal Lab Results 01/05/22 01/05/22 01/04/22 05:33 05:33 15:30 Hgb Hct 34.0 L RDW 14.8 H Lymph # (Auto) 1.40 L Carbon Dioxide 20 L Anion Gap Creatinine 0.5 L Glucose 113 H Calcium 10.8 H Alkaline Phosphatase 124 H Total Protein Urine Appearance Cloudy A Urine Protein 100 A Urine Ketones 80 A Urine Occult Blood >=1.0 A Ur Leukocyte Esterase 75 A Urine RBC > 182 H Urine WBC > 182 H Urine Mucus Few A 01/04/22 01/04/22 01/03/22 05:10 05:10 05:23 Hgb Hct RDW 15.1 H Lymph # (Auto) Carbon Dioxide 18 L 21 L Anion Gap 19.0 H Creatinine 0.4 L 0.4 L Glucose 116 H Calcium 10.6 H Alkaline Phosphatase 125 H 120 H Total Protein 5.8 L Urine Appearance Urine Protein Urine Ketones Urine Occult Blood Ur Leukocyte Esterase Urine RBC Urine WBC Urine Mucus 01/03/22 05:23 Hgb 10.7 L Hct 33.5 L RDW 15.1 H Lymph # (Auto) Carbon Dioxide Anion Gap Creatinine Glucose Calcium Alkaline Phosphatase Total Protein Urine Appearance Urine Protein Urine Ketones Urine Occult Blood Ur Leukocyte Esterase Urine RBC Urine WBC Urine Mucus Meds: Medications Acetaminophen (Acetaminophen 325 Mg Tablet) 650 mg PO Q6HP PRN; Protocol PRN Reason: Per Pain Protocol/Fever > 101 Hydrocodone Bitart/Acetaminophen (Hydrocodone/Apap 5/325mg Tablet) 1 tab PO Q4HP PRN; Protocol PRN Reason: Per Pain Protocol Last Admin: 01/05/22 08:31 Dose: 1 tab Documented by: Al Hydrox/Mg Hydrox/Simethicone (Mag Hydrox/Al Hydrox/Simeth 30 Ml Oral.Susp) 30 ml PO Q6HP PRN PRN Reason: Dyspepsia Albuterol Sulfate (Albuterol Sulfate 2.5 Mg/3 Ml Nebulizer) 2.5 mg NEB Q2HP PRN PRN Reason: Shortness Of Breath Albuterol/Ipratropium (Ipratropium/Albuterol 3 Ml Ampul.Neb) 3 ml NEB Q4HRT PRN PRN Reason: Wheezing Bisacodyl (Bisacodyl 10 Mg Supp.Rect) 10 mg CA Q2-3DAYS PRN PRN Reason: Constipation Calcium Carbonate/Glycine (Calcium Carbonate 500 Mg Tab.Chew) 1,000 mg CHEWED Q4HP PRN PRN Reason: Dyspepsia Cefuroxime Axetil (Cefuroxime 500 Mg Tablet) 500 mg PO Q12 [facility]; Protocol Cyclobenzaprine HCl (Cyclobenzaprine 10 Mg Tablet) 5 mg PO Q8HP PRN PRN Reason: Muscle Spasm Last Admin: 01/04/22 07:03 Dose: 5 mg Documented by: Docusate Sodium (Docusate Sodium 100 Mg Capsule) 100 mg PO BID [facility] Last Admin: 01/05/22 08:32 Dose: 100 mg Documented by: Enoxaparin Sodium (Enoxaparin 30 Mg/0.3 Ml Syringe) 30 mg SQ DAILY [facility] Last Admin: 01/05/22 08:32 Dose: 30 mg Documented by: Famotidine (Famotidine/Pf 20 Mg/2 Ml Vial) 20 mg IV Q12 [facility] Last Admin: 01/04/22 20:21 Dose: Not Given Documented by: Fentanyl (Fentanyl 25 Mcg Patch) 25 mcg TOPICAL Q72H [facility] Hydralazine HCl (Hydralazine 20 Mg/Ml Vial) 10 mg IV Q4-6HP PRN PRN Reason: Hypertension Hydromorphone HCl (Hydromorphone 0.5 Mg/0.5 Ml Syringe) 0.5 mg IV Q2HP PRN; Protocol PRN Reason: Per Pain Protocol Last Admin: 01/04/22 04:44 Dose: 0.5 mg Documented by: Ceftriaxone Sodium 2 gm/ (Dextrose) 50 mls @ 100 mls/hr IV Q24H [facility]; Protocol Lactulose (Lactulose 20 Gm/30 Ml Oral.Ann) 30 gm PO TID [facility] Last Admin: 01/05/22 08:32 Dose: 30 gm Documented by: Magnesium Hydroxide (Magnesium Hydroxide 30 Ml Oral.Susp) 30 ml PO DAILYP PRN PRN Reason: Constipation Naloxone HCl (Naloxone Hcl 0.4 Mg/Ml Vial) 0.1 mg IV Q2MIN PRN PRN Reason: Opiate Reversal Ondansetron HCl (Ondansetron 4 Mg/2 Ml Vial) 4 mg IV Q6HP PRN PRN Reason: Nausea And Vomiting Ondansetron HCl (Ondansetron 4 Mg Odt Tablet) 4 mg SL Q6HP PRN PRN Reason: Nausea And Vomiting Prochlorperazine (Prochlorperazine 10 Mg/2 Ml Vial) 5 mg IV Q4HP PRN PRN Reason: Nausea And Vomiting Quetiapine Fumarate (Quetiapine 25 Mg Tablet) 12.5 mg PO HSP PRN PRN Reason: insomnia Last Admin: 01/02/22 20:27 Dose: 12.5 mg Documented by: Senna (Sennosides 1 Tablet) 2 tab PO [facility] Last Admin: 01/04/22 20:20 Dose: 2 tab Documented by: Sodium Chloride (0.9 % Sodium Chloride 10 Ml Syringe) 10 ml IV Q8 [facility] Last Admin: 01/05/22 04:02 Dose: Not Given Documented by: Tramadol HCl (Tramadol 50 Mg Tablet) 50 mg PO Q8H [facility]; Protocol Last Admin: 01/05/22 04:02 Dose: 50 mg Documented by: A/P Narrative Plan of Treatment: Acute femur fracture with extensive bone metastasis Dr. Ramos and his PA evaluated the patient and recommended conservative measures pain control with the multiple lytic lesions and poor prognosis. Discussed with Dr. Dill and he agrees she is not a surgical candidate Pain control with tramadol and IV Dilaudid IV fluid discussed with the patient about nonsurgical options and pain control and hospice Discussed with the patient and POA in the room and according to both patient has been diagnosed with terminal cancer 3 years ago and she is still alive and be active so they want to explore surgical options. Discussed with the [facility], orthopedic surgeon reviewed the images and recommended this to be done by an oncology orthopedic surgeon and they do not have an oncology orthopedic surgeon until Wednesday and recommended discussing with [facility] Discussed with the transfer center at [facility] and waiting for the call back from the surgeon 01/05-discussed with Dr. Katz general orthopedic surgeon who discussed with 2 of the oncology orthopedic surgeons Dr. Cao and they do not recommend any corrective surgical measures they recommend palliative care and conservative measures the only surgical option in her case will be resection arthroplasty of the femur head for pain control. Discussed with the patient and updated her For pain control patient was started on fentanyl patch 25 mcg Metastatic breast cancer Extensive brain mets and extensive bone metastasis Patient recently had a CT of the head earlier this year showing worsening of her multiple metastatic lesions She also had extensive lytic lesions anterior pelvis femur and lower extremities Not on any active treatment Type 2 diabetes Sliding scale Monitor blood glucose Intermittent behavioral disturbances probably due to brain metastasis Patient does have intermittent behavioral disturbances and memory loss CODE STATUS-DNR/DNI DVT prophylaxis-Lovenox Time Spent With Patient Time: Total time spent is greater than 50% in coordination of care (as documented) at patient's floor/unit and/or counseling patient: QUALITY VTE Deep Vein Thrombosis/Pulmonary Embolism Present on Admission: No
[2022-01-05] MEDS: FAMOTIDINE/PF 20 MG/2 ML VIAL IV SCH ×2 (12:27→21:22)
[2022-01-05] MEDS: CEFUROXIME 500 MG TABLET PO SCH (20:05)
[2022-01-05] MEDS: SENNOSIDES 1 TABLET PO SCH (21:22)
[2022-01-06] MEDS: traMADol 50 MG TABLET PO SCH ×3 (03:36→20:40)
[2022-01-06] MEDS: 0.9 % SODIUM CHLORIDE 10 ML SYRINGE IV SCH ×2 (04:22→14:13)
[2022-01-06] MEDS: HYDROcodone/APAP 5/325MG TABLET PO PRN ×3 (05:21→17:23)
[2022-01-06 06:36] LABS: Basophils # (Auto) 0.03 K/mcL (0.00-0.30); Basophils % (Auto) 0.4 % (0.0-2.0); Eosinophils # (Auto) 0.05 K/mcL (0.00-0.70); Eosinophils % (Auto) 0.7 % (0.0-7.0); Hemoglobin 11.4 g/dL (11.2-15.7); Lymphocytes # (Auto) 1.64 K/mcL (1.50-4.80); Lymphocytes % (Auto) 21.4 % (15.5-49.0); Mean Cell Volume 90.9 fL (80.0-100.0); Mean Corpuscular HGB Conc 33.5 g/dL (31.0-36.0); Mean Platelet Volume 9.3 fL (7.4-10.4); Monocytes # (Auto) 0.63 K/mcL (0.10-0.90); Monocytes % (Auto) 8.2 % (1.0-12.0); Neutrophils % (Auto) 69.3 % (38.0-78.0); Platelet Count 243 K/mcL (140-440); RBC 3.74 M/mcL (3.59-5.38); Red Cell Distribution Width 14.8 % (11.5-14.5); WBC 7.7 K/mcL (4.5-11.0)
[2022-01-06 07:10] LABS: ALT/SGPT 6 U/L (<40); AST/SGOT 20 U/L (<32); Albumin 3.3 gm/dL (3.2-5.2); Albumin/Globulin Ratio 1.1 (1.0-2.3); Alkaline Phosphatase 145 U/L (39-117); Bilirubin,Total 0.7 mg/dL (0.1-1.0); Blood Urea Nitrogen 9 mg/dL (8-23); Calcium 10.7 mg/dL (8.6-10.4); Carbon Dioxide 22 mmol/L (22-30); Chloride 99 mmol/L (96-108); Globulin 2.9 gm/dL (2.2-3.7); Glomerular Filtration Rate 108; Glucose 125 mg/dL (70-105)
[2022-01-06] MEDS: CEFUROXIME 500 MG TABLET PO SCH ×2 (10:42→20:14)
[2022-01-06] MEDS: ENOXAPARIN 40 MG/0.4 ML SYRINGE SQ SCH (10:45)
[2022-01-06] MEDS: DOCUSATE SODIUM 100 MG CAPSULE PO SCH ×2 (10:46→20:14)
[2022-01-06] MEDS: PANTOPRAZOLE 40 MG TABLET PO SCH (10:51)
[2022-01-06] MEDS: FAMOTIDINE/PF 20 MG/2 ML VIAL IV SCH (13:29)
[2022-01-06] MEDS: ENOXAPARIN 30 MG/0.3 ML SYRINGE SQ SCH (13:29)
--- NOTE | 2022-01-06 15:44 | Internal Med Progress Note ---
SUBJECTIVE Subjective Patient information: Note initiated : 01/06/22 at 3:41 pm Service Date, if different from initiated Date: [] Patient: Aliya Muñoz 66 y/o F admitted on 01/01/22 for L leg pain. Chief Complaint: [] Interval history: Chief Complaint: [] Interval history: 66-year-old female with a history of type 2 diabetes, metastatic breast cancer with multiple brain metastasis and extensive bone metastasis with neurologic symptoms was brought to the ER following a fall and impacted her left hip Her work-up in the ER showed acute fracture of the left hip with angulation and multiple lytic metastatic lesions also lower extremity x-ray showing multiple metastatic lesions hemoglobin 12.2 platelet count within normal limits electroly dwight within normal limits creatinine normal glucose slightly elevated alkaline phosphatase elevated no source of infection identified 01/[address] Ramos evaluated the patient and recommended conservative measures and he is going to talk to Dr. Dill to get a second opinion. I agree with the recommendation as the patient has multiple metastatic lytic lesions surgery itself will be complicated and recovering from surgery is unlikely and her prognosis is very poor. 01/03 Patient continued having pain She is not a surgical candidate according to Dr. Guido and Aniyah Patient has multiple extensive bone metastatic lesions and brain metastasis with intermittent behavioral changes Patient does not have any family to make decisions for her Patient is thinking about options according to the orthopedic surgeon if she want to consider surgery then she needs to go to a tertiary care level Based on my assessment patient is not a surgical candidate due to multiple lytic lesions and intermittent behavioral issues and recovering from surgery is unlikely and her prognosis is very poor 01/04 Discussed with the patient and her POA in the room They want to explore surgical options for her according to the POA and the patient she has been diagnosed with terminal cancer 3 years ago but she is still alive and active so they want to see whether patient can get surgery and be active Discussed with the [facility] transfer team and they do not have any oncology orthopedic surgeon until Wednesday the recommended discussing with the [facility] call initiated discussed with the transfer center waiting for the call back 01/05 Discussed with orthopedic surgeon Dr. Katz at the [facility] and he called back this morning after discussing with 2 of the oncology orthopedic surgeon Dr. Cao. They did not recommend any corrective surgical procedure with her extensive metastasis they recommend palliative care and pain management and conservative measures only surgical option in her case is a resection arthroplasty of the femur head for pain control 01/06 01/07 Constitutional Vitals: Vital Signs Temp Pulse Resp BP Pulse Ox 98.2 F 95 H 20 108/59 94 01/06/22 12:00 01/06/22 12:00 01/06/22 12:00 01/06/22 12:00 01/06/22 12:00 Period Temp Pulse Resp BP Sys/Cuevas Pulse Ox Last 24 Hr 96.9 F-98.2 F 91-97 14-20 104-114/59-66 92-97 Intake and Output 01/06/22 01/06/22 01/06/22 05:59 13:59 21:59 Intake Total 100 Output Total 225 Balance -125 Intake & Output: Intake & Output 01/06/22 01/06/22 01/06/22 05:59 13:59 21:59 Intake Total 100 Output Total 225 Balance -125 Intake: Oral 100 Output: Urine Catheter Amount 225 Other: Urine Appearance Clear Urine Color Dark Yellow Uretheral (Man) Tea Colored Urine Odor Normal Stool Size Copious Stool Color Brown Stool Consistency Liquid Exam: General: Alert, Awake, No acute Distress Eyes/N/T: EOMI, Head/Neck: neck supple, Multiple bruises and ecchymosis CV: RRR, No murmurs, Pulm: Clear b/l, no wheezing/rhonchi/rales Abd: soft, nontender, +BS x4 Ext: no clubbing/cyanosis/edema Neuro: Alert, no focal deficits, moves all extremities Psychiatric: Intermittent pleasant confusion Skin: warm/dry OBJ DATA Labs CBC & Chem 7: 01/06/22 05:28 01/06/22 05:28 Labs: Abnormal Lab Results 01/06/22 01/06/22 01/05/22 05:28 05:28 05:33 Hct 34.0 L RDW 14.8 H Lymph # (Auto) Carbon Dioxide 20 L Anion Gap Creatinine 0.4 L 0.5 L Glucose 125 H 113 H Calcium 10.7 H 10.8 H Alkaline Phosphatase 145 H 124 H Urine Appearance Urine Protein Urine Ketones Urine Occult Blood Ur Leukocyte Esterase Urine RBC Urine WBC Urine Mucus 01/05/22 01/04/22 01/04/22 05:33 15:30 05:10 Hct 34.0 L RDW 14.8 H Lymph # (Auto) 1.40 L Carbon Dioxide 18 L Anion Gap 19.0 H Creatinine 0.4 L Glucose Calcium 10.6 H Alkaline Phosphatase 125 H Urine Appearance Cloudy A Urine Protein 100 A Urine Ketones 80 A Urine Occult Blood >=1.0 A Ur Leukocyte Esterase 75 A Urine RBC > 182 H Urine WBC > 182 H Urine Mucus Few A 01/04/22 05:10 Hct RDW 15.1 H Lymph # (Auto) Carbon Dioxide Anion Gap Creatinine Glucose Calcium Alkaline Phosphatase Urine Appearance Urine Protein Urine Ketones Urine Occult Blood Ur Leukocyte Esterase Urine RBC Urine WBC Urine Mucus Meds: Medications Acetaminophen (Acetaminophen 325 Mg Tablet) 650 mg PO Q6HP PRN; Protocol PRN Reason: Per Pain Protocol/Fever > 101 Last Admin: 01/06/22 03:35 Dose: 650 mg Documented by: Hydrocodone Bitart/Acetaminophen (Hydrocodone/Apap 5/325mg Tablet) 1 tab PO Q4HP PRN; Protocol PRN Reason: Per Pain Protocol Last Admin: 01/06/22 10:34 Dose: 1 tab Documented by: Al Hydrox/Mg Hydrox/Simethicone (Mag Hydrox/Al Hydrox/Simeth 30 Ml Oral.Susp) 30 ml PO Q6HP PRN PRN Reason: Dyspepsia Albuterol Sulfate (Albuterol Sulfate 2.5 Mg/3 Ml Nebulizer) 2.5 mg NEB Q2HP PRN PRN Reason: Shortness Of Breath Albuterol/Ipratropium (Ipratropium/Albuterol 3 Ml Ampul.Neb) 3 ml NEB Q4HRT PRN PRN Reason: Wheezing Bisacodyl (Bisacodyl 10 Mg Supp.Rect) 10 mg AK Q2-3DAYS PRN PRN Reason: Constipation Calcium Carbonate/Glycine (Calcium Carbonate 500 Mg Tab.Chew) 1,000 mg CHEWED Q4HP PRN PRN Reason: Dyspepsia Cefuroxime Axetil (Cefuroxime 500 Mg Tablet) 500 mg PO Q12 [facility]; Protocol Last Admin: 01/06/22 10:42 Dose: 500 mg Documented by: Cyclobenzaprine HCl (Cyclobenzaprine 10 Mg Tablet) 5 mg PO Q8HP PRN PRN Reason: Muscle Spasm Last Admin: 01/04/22 07:03 Dose: 5 mg Documented by: Docusate Sodium (Docusate Sodium 100 Mg Capsule) 100 mg PO BID [facility] Last Admin: 01/06/22 10:46 Dose: Not Given Documented by: Enoxaparin Sodium (Enoxaparin 40 Mg/0.4 Ml Syringe) 40 mg SQ DAILY [facility] Last Admin: 01/06/22 10:45 Dose: Not Given Documented by: Fentanyl (Fentanyl 25 Mcg Patch) 25 mcg TOPICAL Q72H [facility] Last Admin: 01/05/22 12:28 Dose: 25 mcg Documented by: Hydralazine HCl (Hydralazine 20 Mg/Ml Vial) 10 mg IV Q4-6HP PRN PRN Reason: Hypertension Hydromorphone HCl (Hydromorphone 0.5 Mg/0.5 Ml Syringe) 0.5 mg IV Q2HP PRN; Protocol PRN Reason: Per Pain Protocol Last Admin: 01/04/22 04:44 Dose: 0.5 mg Documented by: Magnesium Hydroxide (Magnesium Hydroxide 30 Ml Oral.Susp) 30 ml PO DAILYP PRN PRN Reason: Constipation Naloxone HCl (Naloxone Hcl 0.4 Mg/Ml Vial) 0.1 mg IV Q2MIN PRN PRN Reason: Opiate Reversal Ondansetron HCl (Ondansetron 4 Mg Odt Tablet) 4 mg SL Q6HP PRN PRN Reason: Nausea And Vomiting Pantoprazole Sodium (Pantoprazole 40 Mg Tablet) 40 mg PO QAMAC [facility] Last Admin: 01/06/22 10:51 Dose: Not Given Documented by: Quetiapine Fumarate (Quetiapine 25 Mg Tablet) 12.5 mg PO HSP PRN PRN Reason: insomnia Last Admin: 01/02/22 20:27 Dose: 12.5 mg Documented by: Senna (Sennosides 1 Tablet) 2 tab PO HS [facility] Last Admin: 01/05/22 21:22 Dose: 2 tab Documented by: Tramadol HCl (Tramadol 50 Mg Tablet) 50 mg PO Q8H [facility]; Protocol Last Admin: 01/06/22 14:10 Dose: 50 mg Documented by: A/P Narrative A/P Narrative: A/P: *Acute femur fracture 2/2 extensive bone metastasis: -Dr. Ramos and his PA evaluated the patient and recommended conservative measures pain control with the multiple lytic lesions and poor prognosis -Discussed with Dr. Dill and he agrees she is not a surgical candidate -Pain control with tramadol and IV Dilaudid -discussed with the patient about nonsurgical options and pain control and hospice -Discussed with the patient and POA in the room and according to both patient has been diagnosed with terminal cancer 3 years ago and she is still alive and be active so they want to explore surgical options. -Discussed with the [facility], orthopedic surgeon reviewed the images and recommended this to be done by an oncology orthopedic surgeon and they do not have an oncology orthopedic surgeon until Wednesday and recommended discussing with [facility] -Discussed with [facility] Dr. Katz general orthopedic surgeon who discussed with 2 of the oncology orthopedic surgeons Dr. Cao and they do not recommend any corrective surgical measures they recommend palliative care and conservative measures the only surgical option in her case will be resection arthroplasty of the femur head for pain control. -Discussed with the patient and updated her -For pain control patient was started on fentanyl patch 25 mcg *Metastatic breast cancer -Extensive brain mets and extensive bone metastasis -Patient recently had a CT of the head earlier this year showing worsening of her multiple metastatic lesions -She also had extensive lytic lesions anterior pelvis femur and lower extremities -Not on any active treatment *Type 2 diabetes: Sliding scale, Monitor blood glucose *Intermittent behavioral disturbances probably due to brain metastasis: -Patient does have intermittent behavioral disturbances and memory loss *DVT prophylaxis: Lovenox CODE STATUS-DNR/DNI Time Spent With Patient Time: Total time spent is greater than 50% in coordination of care (as documented) at patient's floor/unit and/or counseling patient: QUALITY VTE Deep Vein Thrombosis/Pulmonary Embolism Present on Admission: No
--- NOTE | 2022-01-06 15:59 | Discharge Summary ---
Discharge Provider Provider IMPORTANT FOLLOW-UP INFORMATION FOR PCP: Patient information: Note initiated : 01/06/22 at 3:55 pm Service Date, if different from initiated Date: [] Patient: Aliya Muñoz 66 y/o F admitted on 01/01/22 for L leg pain. Chief Complaint: [] Date of admission: 01/01/22 21:12 Discharge date: 01/08/22 Primary care physician: PCP No Consults: 01/01/22 Consult to Physician [CONS] Stat Comment: Consulting Provider: Job Ramos Reason For Exam: Physician to Consult Consult to Physician [CONS] Stat Comment: Consulting Provider: Keyla Tony Reason For Exam: Physician to Consult COURSE Hospital Course Hospital course: Chief Complaint: [] Interval history: 66-year-old female with a history of type 2 diabetes, metastatic breast cancer with multiple brain metastasis and extensive bone metastasis with neurologic symptoms was brought to the ER following a fall and impacted her left hip Her work-up in the ER showed acute fracture of the left hip with angulation and multiple lytic metastatic lesions also lower extremity x-ray showing multiple metastatic lesions hemoglobin 12.2 platelet count within normal limits electrolytes within normal limits creatinine normal glucose slightly elevated alkaline phosphatase elevated no source of infection identified 01/[address] Ramos evaluated the patient and recommended conservative measures and he is going to talk to Dr. Dill to get a second opinion. I agree with the recommendation as the patient has multiple metastatic lytic lesions surgery itself will be complicated and recovering from surgery is unlikely and her prognosis is very poor. 01/03 Patient continued having pain She is not a surgical candidate according to Dr. Redmond Patient has multiple extensive bone metastatic lesions and brain metastasis with intermittent behavioral changes Patient does not have any family to make decisions for her Patient is thinking about options according to the orthopedic surgeon if she want to consider surgery then she needs to go to a tertiary care level Based on my assessment patient is not a surgical candidate due to multiple lytic lesions and intermittent behavioral issues and recovering from surgery is unlikely and her prognosis is very poor 01/04 Discussed with the patient and her POA in the room They want to explore surgical options for her according to the POA and the patient she has been diagnosed with terminal cancer 3 years ago but she is still alive and active so they want to see whether patient can get surgery and be active Discussed with the [facility] transfer team and they do not have any oncology orthopedic surgeon until Wednesday the recommended discussing with the [facility] call initiated discussed with the transfer center waiting for the call back 01/05 Discussed with orthopedic surgeon Dr. Katz at the [facility] and he called back this morning after discussing with 2 of the oncology orthopedic surgeon Dr. Cao. They did not recommend any corrective surgical procedure with her extensive metastasis they recommend palliative care and pain management and conservative measures only surgical option in her case is a resection arthroplasty of the femur head for pain control 01/06 01/07 Still is quite a Bit of pain with movement. Adjusted pain medications last n ight with some improvement. Started Robaxin and increase [place] as well as fentanyl patch. Complex pain management patient with metastatic disease to the bone and pathological fractures. Continue monitor and adjust. Discussed hospice getting involved. Had a meeting with the patient and her power of environmental attorney as well as another friend. Discussing her goals of care and CODE STATUS. Given her terminal illness and current and other health issues I discussed with the her goals and what hospice could do as well as updating the CODE STATUS. Power of environmental attorney patient felt hospice would be good to get involved with at the nursing facility and CODE STATUS was changed to DO NOT RESUSCITATE. 01/08 Started Roxanol sublingual last night with some improvement in pain but difficult to control with sats with any movement of that leg because of severe pain. Plan will be to transition to SNF and follow-up with hospice A/P: *Acute Left femur fracture 09/10 extensive bone metastasis: -Dr. Ramos and his PA evaluated the patient and recommended conservative measures pain control with the multiple lytic lesions and poor prognosis -Discussed with Dr. Dill and he agrees she is not a surgical candidate -Pain control with tramadol and IV Dilaudid -discussed with the patient about nonsurgical options and pain control and hospice -Discussed with the patient and POA in the room and according to both patient has been diagnosed with terminal cancer 3 years ago and she is still alive and be active so they want to explore surgical options. -Discussed with the [facility], orthopedic surgeon reviewed the images and recommended this to be done by an oncology orthopedic surgeon and they do not have an oncology orthopedic surgeon until Wednesday and recommended discussing with [facility] -Discussed with [facility] Dr. Katz general orthopedic surgeon who discussed with 2 of the oncology orthopedic surgeons Dr. Cao and they do not recommend any corrective surgical measures they recommend palliative care and conservative measures the only surgical option in her case will be resection arthroplasty of the femur head for pain control. -Discussed with the patient and updated her -For pain control patient was started on fentanyl patch 25 mcg (increase), prn norco/robaxin/roxanol *Metastatic breast cancer -Extensive brain mets and extensive bone metastasis -Patient recently had a CT of the head earlier this year showing worsening of her multiple metastatic lesions -She also had extensive lytic lesions anterior pelvis femur and lower extremities -Not on any active treatment *Type 2 diabetes: Sliding scale, Monitor blood glucose *Intermittent behavioral disturbances probably due to brain metastasis: -Patient does have intermittent behavioral disturbances and memory loss *UTI: UC with Aerococcus and Pseudomonas > Cefepime *Hypercalcemia: Secondary to metastatic disease *Goals of care: Recommend hospice involvement Discharge diagnosis: Acute pathological femur fracture from metastatic breast cancer Secondary discharge diagnosis: Metastatic breast cancer to bone and brain and other areas, diabetes intermittent behavioral disturbances and memory loss suspected dementia. Time Spent with Patient Time attestation: Total time spent providing and/or coordinating discharge services: Time spent: Greater than 30 minutes EXAM Constitutional Vitals: Temp Pulse Resp BP Pulse Ox 98.2 F 95 H 20 108/59 94 01/06/22 12:00 01/06/22 12:00 01/06/22 12:00 01/06/22 12:00 01/06/22 12:00 Discharge Data Data Completed and Pending Labs on day of discharge: Labs from last 24 hours 01/06/22 01/06/22 05:28 05:28 WBC 7.7 RBC 3.74 Hgb 11.4 Hct 34.0 L MCV 90.9 MCH 30.5 MCHC 33.5 RDW 14.8 H Plt Count 243 MPV 9.3 Neut % (Auto) 69.3 Lymph % (Auto) 21.4 [place] % (Auto) 8.2 Eos % (Auto) 0.7 Baso % (Auto) 0.4 Lymph # (Auto) 1.64 [place] # (Auto) 0.63 Eos # (Auto) 0.05 Baso # (Auto) 0.03 Absolute Neutrophils 5.32 Sodium 137 Potassium 3.6 Chloride 99 Carbon Dioxide 22 Anion Gap 16.0 BUN 9 Creatinine 0.4 L GFR Calculation 108 Glucose 125 H Calcium 10.7 H Magnesium 1.8 Total Bilirubin 0.7 AST 20 ALT 6 Alkaline Phosphatase 145 H Total Protein 6.2 Albumin 3.3 Globulin 2.9 Albumin/Globulin Ratio 1.1 Preliminary micro results at discharge 01/04/22 15:30 Urine Culture - Preliminary Urine - Clean Void Mid-Stream Pseudomonas aeruginosa Aerococcus urinae Discharge Plan Patient/Caregiver Discharge Instructions Activity: increase activity as tolerated Diet: Regular Diet Activity Restrictions/Additional Instructions: Follow-up with PCP in 3 to 7 days. Follow-up with hospice. Prescriptions: New acetaminophen [Tylenol] 325 mg Tablet 650 mg PO Q6HP PRN (Reason: Per Pain Protocol/Fever > 101) 20 Days 0RF hydrocodone-acetaminophen 5-325 mg Tablet 1 - 2 tab PO Q4HP PRN (Reason: Per Pain Protocol) Qty: 30 0RF methocarbamol 750 mg Tablet 750 mg PO TID PRN (Reason: spasms) Qty: 10 0RF fentanyl 25 mcg/hr Patch 72 Hour 25 mcg topical Q72H Qty: 3 0RF fentanyl 12 mcg/hr Patch 72 Hour 12 mcg topical Q72H Qty: 3 0RF morphine concentrate 100 mg/5 mL (20 mg/mL) Solution 4 - 10 mg SL Q3HP PRN (Reason: Per Pain Protocol) Qty: 30 0RF Continued glyburide 1.25 mg tablet 1.25 mg PO TID Qty: 90 0RF dexamethasone [Decadron] 4 mg tablet 4 mg PO QDAY Qty: 30 0RF Follow Up Plan Follow up with: No,PCP [Primary Care Provider] - Patient Disposition: Xfer SNF Prognosis: Undetermined Rehab Potential: Undetermined I certify that the patient requires SNF services: Yes Overall status at discharge: patient is not back to baseline Discharge Orders: Discharge Order (Routine); Ordered 01/08/22 [facility]/Pulmonary Embolism Present on Admission: No
[2022-01-06] MEDS ORDERED: fentaNYL 12 MCG PATCH TOPICAL SCH (19:00)
[2022-01-06] MEDS ORDERED: fentaNYL 25 MCG PATCH TOPICAL SCH (19:00)
[2022-01-06] MEDS ORDERED: MELATONIN 3 MG TABLET PO PRN (19:21)
[2022-01-06] MEDS: SENNOSIDES 1 TABLET PO SCH (20:14)
[2022-01-06] MEDS: METHOCARBAMOL 750 MG TABLET PO PRN (20:14)
--- NOTE | 2022-01-06 22:24 | Internal Med Progress Note ---
SUBJECTIVE Subjective Patient information: Note initiated : 01/06/22 at 10:23 pm Service Date, if different from initiated Date: [] Patient: Aliya Muñoz 66 y/o F admitted on 01/01/22 for L leg pain. Chief Complaint: [] Interval history: 66-year-old female with a history of type 2 diabetes, metastatic breast cancer with multiple brain metastasis and extensive bone metastasis with neurologic symptoms was brought to the ER following a fall and impacted her left hip Her work-up in the ER showed acute fracture of the left hip with angulation and multiple lytic metastatic lesions also lower extremity x-ray showing multiple metastatic lesions hemoglobin 12.2 platelet count within normal limits electrolytes within normal limits creatinine normal glucose slightly elevated alkaline phosphatase elevated no source of infection identified 01/[address] Ramos evaluated the patient and recommended conservative measures and he is going to talk to Dr. Dill to get a second opinion. I agree with the recommendation as the patient has multiple metastatic lytic lesions surgery itself will be complicated and recovering from surgery is unlikely and her prognosis is very poor. 01/03 Patient continued having pain She is not a surgical candidate according to Dr. Guido and Aniyah Patient has multiple extensive bone metastatic lesions and brain metastasis with intermittent behavioral changes Patient does not have any family to make decisions for her Patient is thinking about options according to the orthopedic surgeon if she want to consider surgery then she needs to go to a tertiary care level Based on my assessment patient is not a surgical candidate due to multiple lytic lesions and intermittent behavioral issues and recovering from surgery is unlikely and her prognosis is very poor 01/04 Discussed with the patient and her POA in the room They want to explore surgical options for her according to the POA and the patient she has been diagnosed with terminal cancer 3 years ago but she is still alive and active so they want to see whether patient can get surgery and be active Discussed with the [facility] transfer team and they do not have any oncology orthopedic surgeon until Wednesday the recommended discussing with the [facility] call initiated discussed with the transfer center waiting for the call back 01/04 Discussed with orthopedic surgeon Dr. Katz at the [facility] and he called back this morning after discussing with 2 of the oncology orthopedic surgeon Dr. Cao. They did not recommend any corrective surgical procedure with her extensive metastasis they recommend palliative care and pain management and conservative measures only surgical option in her case is a resection arthroplasty of the femur head for pain control 01/06 PAIN BETTER controlled with fentanyl patch CM managment updated Review of systems 10 point review of system unremarkable other than continued pain Physical exam Head: Multiple bruises and ecchymosis Eyes: normal appearance, no scleral icterus. Neck: full ROM Respiratory: no respiratory distress. Cardiovascular: normal rate and rhythm, S1, S2. GI/Abdominal: No significant tenderness Extremities: Externally rotated pain with the movements Neurological intermittent pleasant confusion otherwise no new focal deficit Psychiatric: Intermittent pleasant confusion Skin: warm, normal color Constitutional Vitals: Vital Signs Temp Pulse Resp BP Pulse Ox 98.0 F 95 H 16 108/58 94 01/06/22 19:41 01/06/22 19:41 01/06/22 19:41 01/06/22 19:41 01/06/22 19:41 Period Temp Pulse Resp BP Sys/Cuevas Pulse Ox Last 24 Hr 97.0 F-98.2 F 66-97 14-20 105-114/57-66 92-94 Intake and Output 01/06/22 01/06/22 01/07/22 13:59 21:59 05:59 Intake Total 870 Output Total 200 Balance 670 Weight 54.703 kg Patient Weight 01/07/22 05:59 Weight 54.703 kg Intake & Output: Intake & Output 01/06/22 01/06/22 01/07/22 13:59 21:59 05:59 Intake Total 870 Output Total 200 Balance 670 Weight 54.703 kg Intake: Oral 870 Output: Urine Catheter Amount 200 Other: Meal milkshake Percent of Meal Consumed 50% Urine Appearance Uretheral (Man) Clear Urine Color Light Ioana Blood Tinged Uretheral (Man) Tea Colored Tea Colored Urine Odor Strong # Voids 2 OBJ DATA Labs CBC & Chem 7: 01/06/22 05:28 01/06/22 05:28 Labs: Abnormal Lab Results 01/06/22 01/06/22 01/05/22 05:28 05:28 05:33 Hct 34.0 L RDW 14.8 H Lymph # (Auto) Carbon Dioxide 20 L Anion Gap Creatinine 0.4 L 0.5 L Glucose 125 H 113 H Calcium 10.7 H 10.8 H Alkaline Phosphatase 145 H 124 H Urine Appearance Urine Protein Urine Ketones Urine Occult Blood Ur Leukocyte Esterase Urine RBC Urine WBC Urine Mucus 01/05/22 01/04/22 01/04/22 05:33 15:30 05:10 Hct 34.0 L RDW 14.8 H Lymph # (Auto) 1.40 L Carbon Dioxide 18 L Anion Gap 19.0 H Creatinine 0.4 L Glucose Calcium 10.6 H Alkaline Phosphatase 125 H Urine Appearance Cloudy A Urine Protein 100 A Urine Ketones 80 A Urine Occult Blood >=1.0 A Ur Leukocyte Esterase 75 A Urine RBC > 182 H Urine WBC > 182 H Urine Mucus Few A 01/04/22 05:10 Hct RDW 15.1 H Lymph # (Auto) Carbon Dioxide Anion Gap Creatinine Glucose Calcium Alkaline Phosphatase Urine Appearance Urine Protein Urine Ketones Urine Occult Blood Ur Leukocyte Esterase Urine RBC Urine WBC Urine Mucus Meds: Medications Acetaminophen (Acetaminophen 325 Mg Tablet) 650 mg PO Q6HP PRN; Protocol PRN Reason: Per Pain Protocol/Fever > 101 Last Admin: 01/06/22 03:35 Dose: 650 mg Documented by: Hydrocodone Bitart/Acetaminophen (Hydrocodone/Apap 5/325mg Tablet) 1 - 2 tab PO Q4HP PRN; Protocol PRN Reason: Per Pain Protocol Al Hydrox/Mg Hydrox/Simethicone (Mag Hydrox/Al Hydrox/Simeth 30 Ml Oral.Susp) 30 ml PO Q6HP PRN PRN Reason: Dyspepsia Albuterol Sulfate (Albuterol Sulfate 2.5 Mg/3 Ml Nebulizer) 2.5 mg NEB Q2HP PRN PRN Reason: Shortness Of Breath Albuterol/Ipratropium (Ipratropium/Albuterol 3 Ml Ampul.Neb) 3 ml NEB Q4HRT PRN PRN Reason: Wheezing Bisacodyl (Bisacodyl 10 Mg Supp.Rect) 10 mg [place] Q2-3DAYS PRN PRN Reason: Constipation Calcium Carbonate/Glycine (Calcium Carbonate 500 Mg Tab.Chew) 1,000 mg CHEWED Q4HP PRN PRN Reason: Dyspepsia Cefuroxime Axetil (Cefuroxime 500 Mg Tablet) 500 mg PO Q12 [facility]; Protocol Last Admin: 01/06/22 20:14 Dose: 500 mg Documented by: Cyclobenzaprine HCl (Cyclobenzaprine 10 Mg Tablet) 5 mg PO Q8HP PRN PRN Reason: Muscle Spasm Last Admin: 01/04/22 07:03 Dose: 5 mg Documented by: Docusate Sodium (Docusate Sodium 100 Mg Capsule) 100 mg PO BID [facility] Last Admin: 01/06/22 20:14 Dose: 100 mg Documented by: Enoxaparin Sodium (Enoxaparin 40 Mg/0.4 Ml Syringe) 40 mg SQ DAILY [facility] Last Admin: 01/06/22 10:45 Dose: Not Given Documented by: Fentanyl (Fentanyl 12 Mcg Patch) 12 mcg TOPICAL Q72H [facility] Last Admin: 01/06/22 20:13 Dose: 12 mcg Documented by: Fentanyl (Fentanyl 25 Mcg Patch) 25 mcg TOPICAL Q72H [facility] Last Admin: 01/06/22 20:14 Dose: 25 mcg Documented by: Hydralazine HCl (Hydralazine 20 Mg/Ml Vial) 10 mg IV Q4-6HP PRN PRN Reason: Hypertension Hydromorphone HCl (Hydromorphone 0.5 Mg/0.5 Ml Syringe) 0.5 mg IV Q2HP PRN; Protocol PRN Reason: Per Pain Protocol Last Admin: 01/04/22 04:44 Dose: 0.5 mg Documented by: Magnesium Hydroxide (Magnesium Hydroxide 30 Ml Oral.Susp) 30 ml PO DAILYP PRN PRN Reason: Constipation Melatonin (Melatonin 3 Mg Tablet) 3 mg PO HSP PRN PRN Reason: Sleep Methocarbamol (Methocarbamol 750 Mg Tablet) 750 mg PO Q6HP PRN PRN Reason: Muscle Spasm Last Admin: 01/06/22 20:14 Dose: 750 mg Documented by: Naloxone HCl (Naloxone Hcl 0.4 Mg/Ml Vial) 0.1 mg IV Q2MIN PRN PRN Reason: Opiate Reversal Ondansetron HCl (Ondansetron 4 Mg Odt Tablet) 4 mg SL Q6HP PRN PRN Reason: Nausea And Vomiting Pantoprazole Sodium (Pantoprazole 40 Mg Tablet) 40 mg PO QAMAC [facility] Last Admin: 01/06/22 10:51 Dose: Not Given Documented by: Quetiapine Fumarate (Quetiapine 25 Mg Tablet) 12.5 mg PO HSP PRN PRN Reason: insomnia Last Admin: 01/02/22 20:27 Dose: 12.5 mg Documented by: Senna (Sennosides 1 Tablet) 2 tab PO [facility] Last Admin: 01/06/22 20:14 Dose: 2 tab Documented by: Tramadol HCl (Tramadol 50 Mg Tablet) 50 mg PO Q8H [facility]; Protocol Last Admin: 01/06/22 20:40 Dose: 50 mg Documented by: A/P Time Spent With Patient Time: Total time spent is greater than 50% in coordination of care (as documented) at patient's floor/unit and/or counseling patient: QUALITY VTE Deep Vein Thrombosis/Pulmonary Embolism Present on Admission: No
[2022-01-07] MEDS: HYDROcodone/APAP 5/325MG TABLET PO PRN ×2 (02:30→17:58)
[2022-01-07] MEDS: traMADol 50 MG TABLET PO SCH ×3 (03:54→21:15)
[2022-01-07] MEDS: PANTOPRAZOLE 40 MG TABLET PO SCH (07:03)
--- NOTE | 2022-01-07 08:47 | Internal Med Progress Note ---
SUBJECTIVE Subjective Patient information: Note initiated : 01/07/22 at 8:44 am Service Date, if different from initiated Date: [] Patient: Aliya Muñoz 66 y/o F admitted on 01/01/22 for L leg pain. Chief Complaint: [] Interval history: Chief Complaint: [] Interval history: 66-year-old female with a history of type 2 diabetes, metastatic breast cancer with multiple brain metastasis and extensive bone metastasis with neurologic symptoms was brought to the ER following a fall and impacted her left hip Her work-up in the ER showed acute fracture of the left hip with angulation and multiple lytic metastatic lesions also lower extremity x-ray showing multiple metastatic lesions hemoglobin 12.2 platelet count within normal limits electroly dwight within normal limits creatinine normal glucose slightly elevated alkaline phosphatase elevated no source of infection identified 01/[address] Ramos evaluated the patient and recommended conservative measures and he is going to talk to Dr. Dill to get a second opinion. I agree with the recommendation as the patient has multiple metastatic lytic lesions surgery itself will be complicated and recovering from surgery is unlikely and her prognosis is very poor. 01/03 Patient continued having pain She is not a surgical candidate according to Dr. Guido and Aniyah Patient has multiple extensive bone metastatic lesions and brain metastasis with intermittent behavioral changes Patient does not have any family to make decisions for her Patient is thinking about options according to the orthopedic surgeon if she want to consider surgery then she needs to go to a tertiary care level Based on my assessment patient is not a surgical candidate due to multiple lytic lesions and intermittent behavioral issues and recovering from surgery is unlikely and her prognosis is very poor 01/04 Discussed with the patient and her POA in the room They want to explore surgical options for her according to the POA and the patient she has been diagnosed with terminal cancer 3 years ago but she is still alive and active so they want to see whether patient can get surgery and be active Discussed with the [facility] transfer team and they do not have any oncology orthopedic surgeon until Wednesday the recommended discussing with the [facility] call initiated discussed with the transfer center waiting for the call back 01/05 Discussed with orthopedic surgeon Dr. Katz at the [facility] and he called back this morning after discussing with 2 of the oncology orthopedic surgeon Dr. Cao. They did not recommend any corrective surgical procedure with her extensive metastasis they recommend palliative care and pain management and conservative measures only surgical option in her case is a resection arthroplasty of the femur head for pain control 01/06 01/07 Still is quite a Bit of pain with movement. Adjusted pain medications last night with some improvement. Started Robaxin and increase Mingus as well as fentanyl patch. Complex pain management patient with metastatic disease to the bone and pathological fractures. Continue monitor and adjust. Discussed hospice getting involved. Review of Systems: denies headache/fever/chills/nausea/vomiting/chest or abdominal pain/cough/dyspnea/diarrhea. Otherwise see above. Constitutional Vitals: Vital Signs Temp Pulse Resp BP Pulse Ox 98.0 F 90 20 111/60 91 01/07/22 08:00 01/07/22 08:00 01/07/22 08:00 01/07/22 08:00 01/07/22 08:00 Period Temp Pulse Resp BP Sys/Cuevas Pulse Ox Last 24 Hr 97.5 F-98.2 F 66-95 12-20 108-122/57-69 91-94 Intake and Output 01/06/22 01/07/22 01/07/22 21:59 05:59 13:59 Intake Total 870 350 Output Total 200 125 Balance 670 225 Weight 54.703 kg Intake & Output: Intake & Output 01/06/22 01/07/22 01/07/22 21:59 05:59 13:59 Intake Total 870 350 Output Total 200 125 Balance 670 225 Weight 54.703 kg Intake: Oral 870 350 Output: Urine Catheter Amount 200 125 Other: Meal milkshake Percent of Meal Consumed 50% Urine Appearance Cloudy Uretheral (Man) Clear Urine Color Light Ioana Dark Ioana Blood Tinged Uretheral (Man) Tea Colored Urine Odor Strong Uretheral (Man) Normal # Voids 2 Exam: General: Alert, Awake, No acute Distress Eyes/N/T: EOMI, Head/Neck: neck supple, Multiple bruises and ecchymosis CV: RRR, No murmurs, Pulm: Clear b/l, no wheezing/rhonchi/rales Abd: soft, nontender, +BS x4 Ext: no clubbing/cyanosis/edema Neuro: Alert, no focal deficits, moves all extremities Psychiatric: Intermittent pleasant confusion Skin: warm/dry OBJ DATA Labs CBC & Chem 7: 01/06/22 05:28 01/06/22 05:28 Labs: Abnormal Lab Results 01/06/22 01/06/22 01/05/22 05:28 05:28 05:33 Hct 34.0 L RDW 14.8 H Lymph # (Auto) Carbon Dioxide 20 L Creatinine 0.4 L 0.5 L Glucose 125 H 113 H Calcium 10.7 H 10.8 H Alkaline Phosphatase 145 H 124 H Urine Appearance Urine Protein Urine Ketones Urine Occult Blood Ur Leukocyte Esterase Urine RBC Urine WBC Urine Mucus 01/05/22 01/04/22 05:33 15:30 Hct 34.0 L RDW 14.8 H Lymph # (Auto) 1.40 L Carbon Dioxide Creatinine Glucose Calcium Alkaline Phosphatase Urine Appearance Cloudy A Urine Protein 100 A Urine Ketones 80 A Urine Occult Blood >=1.0 A Ur Leukocyte Esterase 75 A Urine RBC > 182 H Urine WBC > 182 H Urine Mucus Few A Meds: Medications Acetaminophen (Acetaminophen 325 Mg Tablet) 650 mg PO Q6HP PRN; Protocol PRN Reason: Per Pain Protocol/Fever > 101 Last Admin: 01/06/22 03:35 Dose: 650 mg Documented by: Hydrocodone Bitart/Acetaminophen (Hydrocodone/Apap 5/325mg Tablet) 1 - 2 tab PO Q4HP PRN; Protocol PRN Reason: Per Pain Protocol Last Admin: 01/07/22 02:30 Dose: 2 tab Documented by: Al Hydrox/Mg Hydrox/Simethicone (Mag Hydrox/Al Hydrox/Simeth 30 Ml Oral.Susp) 30 ml PO Q6HP PRN PRN Reason: Dyspepsia Albuterol Sulfate (Albuterol Sulfate 2.5 Mg/3 Ml Nebulizer) 2.5 mg NEB Q2HP PRN PRN Reason: Shortness Of Breath Albuterol/Ipratropium (Ipratropium/Albuterol 3 Ml Ampul.Neb) 3 ml NEB Q4HRT PRN PRN Reason: Wheezing Bisacodyl (Bisacodyl 10 Mg Supp.Rect) 10 mg [place] Q2-3DAYS PRN PRN Reason: Constipation Calcium Carbonate/Glycine (Calcium Carbonate 500 Mg Tab.Chew) 1,000 mg CHEWED Q4HP PRN PRN Reason: Dyspepsia Cefuroxime Axetil (Cefuroxime 500 Mg Tablet) 500 mg PO Q12 [facility]; Protocol Last Admin: 01/06/22 20:14 Dose: 500 mg Documented by: Cyclobenzaprine HCl (Cyclobenzaprine 10 Mg Tablet) 5 mg PO Q8HP PRN PRN Reason: Muscle Spasm Last Admin: 01/04/22 07:03 Dose: 5 mg Documented by: Docusate Sodium (Docusate Sodium 100 Mg Capsule) 100 mg PO BID [facility] Last Admin: 01/06/22 20:14 Dose: 100 mg Documented by: Enoxaparin Sodium (Enoxaparin 40 Mg/0.4 Ml Syringe) 40 mg SQ DAILY [facility] Last Admin: 01/06/22 10:45 Dose: Not Given Documented by: Fentanyl (Fentanyl 12 Mcg Patch) 12 mcg TOPICAL Q72H [facility] Last Admin: 01/06/22 20:13 Dose: 12 mcg Documented by: Fentanyl (Fentanyl 25 Mcg Patch) 25 mcg TOPICAL Q72H [facility] Last Admin: 01/06/22 20:14 Dose: 25 mcg Documented by: Hydralazine HCl (Hydralazine 20 Mg/Ml Vial) 10 mg IV Q4-6HP PRN PRN Reason: Hypertension Hydromorphone HCl (Hydromorphone 0.5 Mg/0.5 Ml Syringe) 0.5 mg IV Q2HP PRN; Protocol PRN Reason: Per Pain Protocol Last Admin: 01/04/22 04:44 Dose: 0.5 mg Documented by: Magnesium Hydroxide (Magnesium Hydroxide 30 Ml Oral.Susp) 30 ml PO DAILYP PRN PRN Reason: Constipation Melatonin (Melatonin 3 Mg Tablet) 3 mg PO HSP PRN PRN Reason: Sleep Methocarbamol (Methocarbamol 750 Mg Tablet) 750 mg PO Q6HP PRN PRN Reason: Muscle Spasm Last Admin: 01/06/22 20:14 Dose: 750 mg Documented by: Naloxone HCl (Naloxone Hcl 0.4 Mg/Ml Vial) 0.1 mg IV Q2MIN PRN PRN Reason: Opiate Reversal Ondansetron HCl (Ondansetron 4 Mg Odt Tablet) 4 mg SL Q6HP PRN PRN Reason: Nausea And Vomiting Pantoprazole Sodium ([facility] 40 Mg [facility]t) [facility] Last Admin: 01/07/22 07:03 Dose: 40 mg Documented by: Quetiapine Fumarate (Quetiapine 25 Mg Tablet) 12.5 mg PO HSP PRN PRN Reason: insomnia Last Admin: 01/02/22 20:27 Dose: 12.5 mg Documented by: Senna (Sennosides 1 Tablet) 2 tab PO HS [facility] Last Admin: 01/06/22 20:14 Dose: 2 tab Documented by: Tramadol HCl (Tramadol 50 Mg Tablet) 50 mg PO Q8H [facility]; Protocol Last Admin: 01/07/22 03:54 Dose: 50 mg Documented by: A/P Narrative A/P Narrative: A/P: *Acute Left femur fracture 09/10 extensive bone metastasis: -Dr. Ramos and his PA evaluated the patient and recommended conservative measures pain control with the multiple lytic lesions and poor prognosis -Discussed with Dr. Dill and he agrees she is not a surgical candidate -Pain control with tramadol and IV Dilaudid -discussed with the patient about nonsurgical options and pain control and hospice -Discussed with the patient and POA in the room and according to both patient has been diagnosed with terminal cancer 3 years ago and she is still alive and be active so they want to explore surgical options. -Discussed with the [facility], orthopedic surgeon reviewed the images and recommended this to be done by an oncology orthopedic surgeon and they do not have an oncology orthopedic surgeon until Wednesday and recommended discussing with [facility] -Discussed with [facility] Dr. Katz general orthopedic surgeon who discussed with 2 of the oncology orthopedic surgeons Dr. Cao and they do not recommend any corrective surgical measures they recommend palliative care and conservative measures the only surgical option in her case will be resection arthroplasty of the femur head for pain control. -Discussed with the patient and updated her -For pain control patient was started on fentanyl patch 25 mcg (increase), prn norco/robaxin *Metastatic breast cancer -Extensive brain mets and extensive bone metastasis -Patient recently had a CT of the head earlier this year showing worsening of her multiple metastatic lesions -She also had extensive lytic lesions anterior pelvis femur and lower extremities -Not on any active treatment *Type 2 diabetes: Sliding scale, Monitor blood glucose *Intermittent behavioral disturbances probably due to brain metastasis: -Patient does have intermittent behavioral disturbances and memory loss *Goals of care: Recommend hospice involvement *DVT prophylaxis: Lovenox CODE STATUS-DNR/DNI Time Spent With Patient Time: Total time spent is greater than 50% in coordination of care (as documented) at patient's floor/unit and/or counseling patient: Total time spent with greater than 50% in coordination of care (as documented) at patient's floor/unit and/or counseling patient:: 25 - 35 minutes QUALITY VTE Deep Vein Thrombosis/Pulmonary Embolism Present on Admission: No
[2022-01-07] MEDS: ENOXAPARIN 40 MG/0.4 ML SYRINGE SQ SCH (09:01)
[2022-01-07] MEDS: CEFUROXIME 500 MG TABLET PO SCH (09:01)
[2022-01-07] MEDS: DOCUSATE SODIUM 100 MG CAPSULE PO SCH ×2 (09:01→21:12)
[2022-01-07] MEDS ORDERED: CEFEPIME 1 GM VIAL IV SCH (12:00)
--- NOTE | 2022-01-07 12:21 | Event Note ---
Event Note Event Note: Had a meeting with the patient and her power of deck and hull assembler as well as another friend. Discussing her goals of care and CODE STATUS. Given her terminal illness and current and other health issues I discussed with the her goals and what hospice could do as well as updating the CODE STATUS. Power of deck and hull assembler patient felt hospice would be good to get involved with at the nursing facility and CODE STATUS was changed to DO NOT RESUSCITATE.
[2022-01-07] MEDS ORDERED: CIPROFLOXACIN 500 MG TABLET PO ONE (12:24)
[2022-01-07] MEDS: METHOCARBAMOL 750 MG TABLET PO PRN ×2 (12:59→21:11)
[2022-01-07] MEDS: CYCLOBENZAPRINE 10 MG TABLET PO PRN (14:27)
[2022-01-07] MEDS ORDERED: morphine 20 MG/ML ORAL.CONC SL PRN (19:29)
[2022-01-07] MEDS: SENNOSIDES 1 TABLET PO SCH (21:11)
[2022-01-07] MEDS: 0.9 % SODIUM CHLORIDE 10 ML SYRINGE IV SCH (21:12)
[2022-01-07] MEDS: CEFEPIME 1 GM VIAL IM SCH (21:43)
[2022-01-07] MEDS: morphine 20 MG/ML ORAL.CONC SL PRN (21:44)
[2022-01-08] MEDS: morphine 20 MG/ML ORAL.CONC SL PRN ×3 (01:05→12:23)
[2022-01-08] MEDS: traMADol 50 MG TABLET PO SCH ×2 (04:40→11:42)
[2022-01-08 07:21] LABS: ALT/SGPT 6 U/L (<40); AST/SGOT 20 U/L (<32); Albumin 3.2 gm/dL (3.2-5.2); Albumin/Globulin Ratio 1.1 (1.0-2.3); Alkaline Phosphatase 145 U/L (39-117); Bilirubin,Direct < 0.2 mg/dL (0-0.3); Bilirubin,Total 0.5 mg/dL (0.1-1.0); Blood Urea Nitrogen 10 mg/dL (8-23); Calcium 10.4 mg/dL (8.6-10.4); Carbon Dioxide 25 mmol/L (22-30); Chloride 98 mmol/L (96-108); Globulin 2.8 gm/dL (2.2-3.7); Glomerular Filtration Rate 108; Glucose 144 mg/dL (70-105); Lactate Dehydrogenase 175 U/L (135-225); Phosphorous 3.5 mg/dL (2.5-4.5); Triglycerides 161 mg/dL (<150); Uric Acid 7.9 mg/dL (2.5-8.0)
[2022-01-08] MEDS: 0.9 % SODIUM CHLORIDE 10 ML SYRINGE IV SCH (08:31)
[2022-01-08] MEDS: ENOXAPARIN 40 MG/0.4 ML SYRINGE SQ SCH (08:50)
[2022-01-08] MEDS: DOCUSATE SODIUM 100 MG CAPSULE PO SCH (08:52)
[2022-01-08] MEDS: PANTOPRAZOLE 40 MG TABLET PO SCH (08:52)
--- NOTE | 2022-01-08 09:24 | Internal Med Progress Note ---
SUBJECTIVE Subjective Patient information: Note initiated : 01/08/22 at 9:21 am Service Date, if different from initiated Date: [] Patient: Aliya Muñoz 66 y/o F admitted on 01/01/22 for L leg pain. Chief Complaint: [] Interval history: Chief Complaint: [] Interval history: 66-year-old female with a history of type 2 diabetes, metastatic breast cancer with multiple brain metastasis and extensive bone metastasis with neurologic symptoms was brought to the ER following a fall and impacted her left hip Her work-up in the ER showed acute fracture of the left hip with angulation and multiple lytic metastatic lesions also lower extremity x-ray showing multiple metastatic lesions hemoglobin 12.2 platelet count within normal limits electroly dwight within normal limits creatinine normal glucose slightly elevated alkaline phosphatase elevated no source of infection identified 01/[address] Ramos evaluated the patient and recommended conservative measures and he is going to talk to Dr. Dill to get a second opinion. I agree with the recommendation as the patient has multiple metastatic lytic lesions surgery itself will be complicated and recovering from surgery is unlikely and her prognosis is very poor. 01/03 Patient continued having pain She is not a surgical candidate according to Dr. Guido and Aniyah Patient has multiple extensive bone metastatic lesions and brain metastasis with intermittent behavioral changes Patient does not have any family to make decisions for her Patient is thinking about options according to the orthopedic surgeon if she want to consider surgery then she needs to go to a tertiary care level Based on my assessment patient is not a surgical candidate due to multiple lytic lesions and intermittent behavioral issues and recovering from surgery is unlikely and her prognosis is very poor 01/04 Discussed with the patient and her POA in the room They want to explore surgical options for her according to the POA and the patient she has been diagnosed with terminal cancer 3 years ago but she is still alive and active so they want to see whether patient can get surgery and be active Discussed with the [facility] transfer team and they do not have any oncology orthopedic surgeon until Wednesday the recommended discussing with the [facility] call initiated discussed with the transfer center waiting for the call back 01/05 Discussed with orthopedic surgeon Dr. Katz at the [facility] and he called back this morning after discussing with 2 of the oncology orthopedic surgeon Dr. Cao. They did not recommend any corrective surgical procedure with her extensive metastasis they recommend palliative care and pain management and conservative measures only surgical option in her case is a resection arthroplasty of the femur head for pain control 01/06 01/07 Still is quite a Bit of pain with movement. Adjusted pain medications last night with some improvement. Started Robaxin and increase [place] as well as fentanyl patch. Complex pain management patient with metastatic disease to the bone and pathological fractures. Continue monitor and adjust. Discussed hospice getting involved. Had a meeting with the patient and her power of state attorney as well as another friend. Discussing her goals of care and CODE STATUS. Given her terminal illness and current and other health issues I discussed with the her goals and what hospice could do as well as updating the CODE STATUS. Power of state attorney patient felt hospice would be good to get involved with at the nursing facility and CODE STATUS was changed to DO NOT RESUSCITATE. 01/08 Started Roxanol sublingual last night with some improvement in pain but difficult to control with sats with any movement of that leg because of severe pain. Plan will be to transition to SNF and follow-up with hospice Review of Systems: denies headache/fever/chills/nausea/vomiting/chest or abdominal pain/cough/dyspnea/diarrhea. Otherwise see above. Constitutional Vitals: Vital Signs Temp Pulse Resp BP Pulse Ox 97.2 F 101 H 16 107/59 93 01/08/22 07:20 01/08/22 07:20 01/08/22 07:20 01/08/22 07:20 01/08/22 08:50 Period Temp Pulse Resp BP Sys/Cuevas Pulse Ox Last 24 Hr 97.2 F-98.2 F 100-102 16-20 107-119/56-70 93-95 Intake and Output 01/07/22 01/08/22 01/08/22 21:59 05:59 13:59 Intake Total 240 100 Output Total 201 125 Balance 39 -25 Weight 56.427 kg Intake & Output: Intake & Output 01/07/22 01/08/22 01/08/22 21:59 05:59 13:59 Intake Total 240 100 Output Total 201 125 Balance 39 -25 Weight 56.427 kg Intake: Oral 240 100 Output: Urine Catheter Amount 200 125 # of times incontinent of urine 1 Other: Urine Appearance Cloudy Cloudy Sediment Uretheral (Man) Cloudy Sediment Urine Color Tea Colored Light Ioana Uretheral (Man) Light Ioana Tea Colored Urine Odor Foul OBJ DATA Labs CBC & Chem 7: 01/06/22 05:28 01/08/22 05:53 Labs: Abnormal Lab Results 01/08/22 01/06/22 01/06/22 05:53 05:28 05:28 Hct 34.0 L RDW 14.8 H Creatinine 0.4 L 0.4 L Glucose 144 H 125 H Calcium 10.7 H Alkaline Phosphatase 145 H 145 H Triglycerides 161 H Meds: Medications Acetaminophen (Acetaminophen 325 Mg Tablet) 650 mg PO Q6HP PRN; Protocol PRN Reason: Per Pain Protocol/Fever > 101 Last Admin: 01/06/22 03:35 Dose: 650 mg Documented by: Hydrocodone Bitart/Acetaminophen (Hydrocodone/Apap 5/325mg Tablet) 1 - 2 tab PO Q4HP PRN; Protocol PRN Reason: Per Pain Protocol Last Admin: 01/07/22 17:58 Dose: 1 tab Documented by: Al Hydrox/Mg Hydrox/Simethicone (Mag Hydrox/Al Hydrox/Simeth 30 Ml Oral.Susp) 30 ml PO Q6HP PRN PRN Reason: Dyspepsia Albuterol Sulfate (Albuterol Sulfate 2.5 Mg/3 Ml Nebulizer) 2.5 mg NEB Q2HP PRN PRN Reason: Shortness Of Breath Albuterol/Ipratropium (Ipratropium/Albuterol 3 Ml Ampul.Neb) 3 ml NEB Q4HRT PRN PRN Reason: Wheezing Bisacodyl (Bisacodyl 10 Mg Supp.Rect) 10 mg [place] Q2-3DAYS PRN PRN Reason: Constipation Calcium Carbonate/Glycine (Calcium Carbonate 500 Mg Tab.Chew) 1,000 mg CHEWED Q4HP PRN PRN Reason: Dyspepsia Cefepime HCl (Cefepime 1 Gm Vial) 1 gm IM Q12H FRED; Protocol Last Admin: 01/07/22 21:43 Dose: 1 gm Documented by: Cyclobenzaprine HCl (Cyclobenzaprine 10 Mg Tablet) 5 mg PO Q8HP PRN PRN Reason: Muscle Spasm Last Admin: 01/07/22 14:27 Dose: 5 mg Documented by: Docusate Sodium (Docusate Sodium 100 Mg Capsule) 100 mg PO BID FRED Last Admin: 01/08/22 08:52 Dose: Not Given Documented by: Enoxaparin Sodium (Enoxaparin 40 Mg/0.4 Ml Syringe) 40 mg SQ DAILY [facility] Last Admin: 01/08/22 08:50 Dose: 40 mg Documented by: Fentanyl (Fentanyl 12 Mcg Patch) 12 mcg TOPICAL Q72H [facility] Last Admin: 01/06/22 20:13 Dose: 12 mcg Documented by: Fentanyl (Fentanyl 25 Mcg Patch) 25 mcg TOPICAL Q72H [facility] Last Admin: 01/06/22 20:14 Dose: 25 mcg Documented by: Heparin Sodium (Porcine) (Heparin Flush 10 Units/Ml 5 Ml Syringe) 2 ml IV Q12 [facility] Last Admin: 01/08/22 08:30 Dose: Not Given Documented by: Hydralazine HCl (Hydralazine 20 Mg/Ml Vial) 10 mg IV Q4-6HP PRN PRN Reason: Hypertension Hydromorphone HCl (Hydromorphone 0.5 Mg/0.5 Ml Syringe) 0.5 mg IV Q2HP PRN; Protocol PRN Reason: Per Pain Protocol Last Admin: 01/04/22 04:44 Dose: 0.5 mg Documented by: Magnesium Hydroxide (Magnesium Hydroxide 30 Ml Oral.Susp) 30 ml PO DAILYP PRN PRN Reason: Constipation Melatonin (Melatonin 3 Mg Tablet) 3 mg PO HSP PRN PRN Reason: Sleep Last Admin: 01/07/22 21:12 Dose: 3 mg Documented by: Methocarbamol (Methocarbamol 750 Mg Tablet) 750 mg PO Q6HP PRN PRN Reason: Muscle Spasm Last Admin: 01/07/22 21:11 Dose: 750 mg Documented by: Morphine Sulfate (Morphine 20 Mg/Ml Oral.Conc) 4 - 10 mg SL Q3HP PRN; Protocol PRN Reason: Per Pain Protocol Last Admin: 01/08/22 04:43 Dose: 4 mg Documented by: Naloxone HCl (Naloxone Hcl 0.4 Mg/Ml Vial) 0.1 mg IV Q2MIN PRN PRN Reason: Opiate Reversal Ondansetron HCl (Ondansetron 4 Mg Odt Tablet) 4 mg SL Q6HP PRN PRN Reason: Nausea And Vomiting Pantoprazole Sodium (Pantoprazole 40 Mg Tablet) 40 mg PO QAMAC [facility] Last Admin: 01/08/22 08:52 Dose: Not Given Documented by: Quetiapine Fumarate (Quetiapine 25 Mg Tablet) 12.5 mg PO HSP PRN PRN Reason: insomnia Last Admin: 01/02/22 20:27 Dose: 12.5 mg Documented by: Senna (Sennosides 1 Tablet) 2 tab PO HS [facility] Last Admin: 01/07/22 21:11 Dose: 2 tab Documented by: Sodium Chloride (0.9 % Sodium Chloride 10 Ml Syringe) 10 ml IV Q12 [facility] Last Admin: 01/08/22 08:31 Dose: Not Given Documented by: Tramadol HCl (Tramadol 50 Mg Tablet) 50 mg PO Q8H [facility]; Protocol Last Admin: 01/08/22 04:40 Dose: 50 mg Documented by: A/P Narrative A/P Narrative: A/P: *Acute Left femur fracture 2/ extensive bone metastasis: -Dr. Ramos and his PA evaluated the patient and recommended conservative measures pain control with the multiple lytic lesions and poor prognosis -Discussed with Dr. Dill and he agrees she is not a surgical candidate -Pain control with tramadol and IV Dilaudid -discussed with the patient about nonsurgical options and pain control and hospice -Discussed with the patient and POA in the room and according to both patient has been diagnosed with terminal cancer 3 years ago and she is still alive and be active so they want to explore surgical options. -Discussed with the [facility], orthopedic surgeon reviewed the images and recommended this to be done by an oncology orthopedic surgeon and they do not have an oncology orthopedic surgeon until Wednesday and recommended discussing with [facility] -Discussed with [facility] Dr. Katz general orthopedic surgeon who discussed with 2 of the oncology orthopedic surgeons Dr. Cao and they do not recommend any corrective surgical measures they recommend palliative care and conservative measures the only surgical option in her case will be resection arthroplasty of the femur head for pain control. -Discussed with the patient and updated her -For pain control patient was started on fentanyl patch 25 mcg (increase), prn norco/robaxin/roxanol *Metastatic breast cancer -Extensive brain mets and extensive bone metastasis -Patient recently had a CT of the head earlier this year showing worsening of her multiple metastatic lesions -She also had extensive lytic lesions anterior pelvis femur and lower ex tremities -Not on any active treatment *Type 2 diabetes: Sliding scale, Monitor blood glucose *Intermittent behavioral disturbances probably due to brain metastasis: -Patient does have intermittent behavioral disturbances and memory loss *Goals of care: Recommend hospice involvement *DVT prophylaxis: Lovenox CODE STATUS-DNR/DNI Time Spent With Patient Time: Total time spent is greater than 50% in coordination of care (as documented) at patient's floor/unit and/or counseling patient: Total time spent with greater than 50% in coordination of care (as documented) at patient's floor/unit and/or counseling patient:: 25 - 35 minutes QUALITY VTE Deep Vein Thrombosis/Pulmonary Embolism Present on Admission: No
[2022-01-08] MEDS ORDERED: CIPROFLOXACIN 500 MG TABLET PO ONE (11:14)
[2022-01-08] MEDS ORDERED: LEVOFLOXACIN 750 MG TABLET PO ONE (11:15)
[2022-01-08] MEDS: CEFEPIME 1 GM VIAL IM SCH (12:26)
== END 2022-01-08 13:40 | DRG 543 ==
LOC: ED 15:31 → MEDSUR 21:12
PROVIDERS: ADMIT Internal Medicine; ATTEND Internal Medicine